=== PATIENT | female | born 1970 | race American Indian/Alaskan Native ===

== ENCOUNTER 2017-10-27 08:57 | Outpatient (CLI) | payer MEDICARE, MEDICAID ==
[~2017-10-27 08:57] MED LIST: AMLO2.5T2 PO; ASPI-1265 PO; CEPH250T PO; GABA-532 PO; INSU100V12 SQ; INSU100V36 SQ; MYCO250C46 PO; PANT-47 PO; POTA10CA44 PO; PRAV10TA39 PO; PRED5TAB PO; TACR1CAP28 PO
[2017-10-27 09:45] LABS: COLOR,URINE YELLOW (Yellow); GLUCOSE, URINE NEGATIVE (Neg); KETONES,URINE NEGATIVE (Neg); LEUKOCYTE ESTERASE ,URINE NEGATIVE (Neg); NITRITES, URINE NEGATIVE (Neg); OCCULT BLOOD,URINE NEGATIVE (Neg); PROTEIN,URINE NEGATIVE (Neg); UROBILINOGEN,URINE 0.2 E.U/dL (0.2-1.0)
[2017-10-27 09:48] LABS: BASOPHILS % (AUTO) 0.5 % (0-1); EOSINOPHILS # (AUTO) 0.4 X10'3 (0-0.9); EOSINOPHILS % (AUTO) 4.4 % (0-6); HEMATOCRIT 43.2 % (35.0-45.0); HEMOGLOBIN 14.3 g/dl (12.0-16.0); LYMPHOCYTES # (AUTO) 1.2 X10'3 (1.1-4.8); MEAN CORPUSCULAR HEMOGLOBIN 26.5 PG (27.0-31.0); MEAN CORPUSCULAR HGB CONC 33.2 % (33.0-36.5); MEAN CORPUSCULAR VOLUME 79.7 FL (78-98); MEAN PLATELET VOLUME 8.9 FL (7.4-10.4); MONOCYTES # (AUTO) 0.8 X10'3 (0-0.9); MONOCYTES % (AUTO) 8.9 % (2-12); NEUTROPHILS # (AUTO) 6.5 X10'3 (1.8-7.7); NEUTROPHILS % (AUTO) 73.2 % (42-75); PLATELET COUNT 245 X10'3 (140-440); RED BLOOD COUNT 5.42 X10'6 (4.20-5.60); RED CELL DISTRIBUTION WIDTH 14.7 % (11.5-14.5); WHITE BLOOD COUNT 8.9 X10'3 (4.5-11.0)
[2017-10-27 09:58] LABS: CLARITY,URINE Clear (Clear); UA COLLECTION TYPE CLN CATCH MIDSTREAM
[2017-10-27 09:59] LABS: ALANINE AMINOTRANSFERASE 35 U/L (12-78); ALBUMIN 3.9 G/DL (3.4-5.0); ALBUMIN/GLOBULIN RATIO 0.9 (1.1-1.5); ALKALINE PHOSPHATASE 116 IU/L (46-116); ANION GAP 8 (8-16); ASPARTATE AMINO TRANSFERASE 16 U/L (10-37); BILIRUBIN,TOTAL 0.5 MG/DL (0.1-1.0); BLOOD UREA NITROGEN 15 MG/DL (7-18); CALCIUM 9.7 MG/DL (8.5-10.1); CHLORIDE 101 MMOL/L (99-107); GLUCOSE 115 MG/DL (70-104); POTASSIUM 3.8 MMOL/L (3.5-5.1); SODIUM 137 MMOL/L (135-145); TOTAL CARBON DIOXIDE 28.5 MMOL/L (24-32); TOTAL PROTEIN 8.2 G/DL (6.4-8.2); eGFR 59 ML/MIN
== END 2017-10-27 23:59 | disposition home or self-care (01) ==
LOC: LAB 08:57
PROVIDERS: ATTEND Internal Medicine
DX: Z09 Encounter for follow-up examination after completed treatment for conditions other than malignant neoplasm (principal); T86.10 Unspecified complication of kidney transplant; E11.22 Type 2 diabetes mellitus with diabetic chronic kidney disease; I12.9 Hypertensive chronic kidney disease with stage 1 through stage 4 chronic kidney disease, or unspecified chronic kidney disease; N18.9 Chronic kidney disease, unspecified; R35.0 Frequency of micturition; B25.9 Cytomegaloviral disease, unspecified; B33.8 Other specified viral diseases
CPT/HCPCS: 36415; 80053; 80197; 81003; 85025

== ENCOUNTER 2017-11-24 15:54 | Emergency (ER) | payer MEDICARE, MEDICAID ==
[~2017-11-24] VITALS: Ht 162.6 cm; Wt 101.8 kg
[2017-11-24] MEDS ORDERED: dexamethasone sod phosphate 10mg/ml inj IM STA (16:04)
[2017-11-24] MEDS ORDERED: ketorolac trometh. 30mg/ml inj. IV ONE (16:05)
[2017-11-24] MEDS ORDERED: proCHLORperazine 10 MG/2 ml inj IV ONE (16:05)
[2017-11-24] MEDS ORDERED: LORazepam 2 mg/ml vial IV ONE (16:05)
[2017-11-24] MEDS ORDERED: normal saline 1000ML IV soln IVB ONE (16:05)
[2017-11-24 17:19] VITALS: BP 120/80
== END 2017-11-24 17:20 | disposition home or self-care (01) ==
LOC: ER 15:55
DX: G43.909 Migraine, unspecified, not intractable, without status migrainosus (principal); E78.00 Pure hypercholesterolemia, unspecified; K21.9 Gastro-esophageal reflux disease without esophagitis; I12.0 Hypertensive chronic kidney disease with stage 5 chronic kidney disease or end stage renal disease; E11.22 Type 2 diabetes mellitus with diabetic chronic kidney disease; N18.6 End stage renal disease; Z99.2 Dependence on renal dialysis; Z79.4 Long term (current) use of insulin; Z79.82 Long term (current) use of aspirin
CPT/HCPCS: 96361; 96372; 96374; 96375; 99284; J0780; J1100; J1885; J2060; J7030

== ENCOUNTER 2017-11-27 07:09 | Inpatient (IN) | payer MEDICARE, MEDICAID ==
[~2017-11-27] VITALS: Ht 162.6 cm; Wt 103.8 kg
[2017-11-27] MEDS ORDERED: HYDROcodone/acetaminophen 10/325mg tab PO ONE (08:15)
[2017-11-27 08:50] LABS: BASOPHILS % (AUTO) 0.1 % (0-1); EOSINOPHILS # (AUTO) 0.4 X10'3 (0-0.9); EOSINOPHILS % (AUTO) 2.8 % (0-6); HEMATOCRIT 41.8 % (35.0-45.0); HEMOGLOBIN 14.2 g/dl (12.0-16.0); LYMPHOCYTES # (AUTO) 1.1 X10'3 (1.1-4.8); LYMPHOCYTES % (AUTO) 8.5 % (21-51); MEAN CORPUSCULAR HEMOGLOBIN 27.1 PG (27.0-31.0); MEAN CORPUSCULAR HGB CONC 33.9 % (33.0-36.5); MEAN CORPUSCULAR VOLUME 80.1 FL (78-98); MEAN PLATELET VOLUME 8.2 FL (7.4-10.4); MONOCYTES # (AUTO) 0.7 X10'3 (0-0.9); MONOCYTES % (AUTO) 5.5 % (2-12); NEUTROPHILS # (AUTO) 10.6 X10'3 (1.8-7.7); NEUTROPHILS % (AUTO) 83.1 % (42-75); PLATELET COUNT 263 X10'3 (140-440); RED BLOOD COUNT 5.22 X10'6 (4.20-5.60); RED CELL DISTRIBUTION WIDTH 15.6 % (11.5-14.5); WHITE BLOOD COUNT 12.8 X10'3 (4.5-11.0)
[2017-11-27 08:57] LABS: INR 0.9 INR; PARTIAL THROMBOPLASTIN TIME 27 SECONDS (22-32); PROTHROMBIN TIME 9.6 SECONDS (9.0-12.0)
[2017-11-27 09:05] LABS: ALANINE AMINOTRANSFERASE 25 U/L (12-78); ALBUMIN 3.5 G/DL (3.4-5.0); ALBUMIN/GLOBULIN RATIO 0.7 (1.1-1.5); ALKALINE PHOSPHATASE 126 IU/L (46-116); ANION GAP 11 (8-16); ASPARTATE AMINO TRANSFERASE 12 U/L (10-37); BILIRUBIN,TOTAL 0.5 MG/DL (0.1-1.0); BLOOD UREA NITROGEN 20 MG/DL (7-18); BUN/CREATININE RATIO 16.8 (6.6-38.0); CALCIUM 9.2 MG/DL (8.5-10.1); CHLORIDE 102 MMOL/L (99-107); CREATININE 1.19 MG/DL (0.40-0.90); GLUCOSE 155 MG/DL (70-104); SODIUM 141 MMOL/L (135-145); TOTAL CARBON DIOXIDE 27.6 MMOL/L (24-32); TOTAL PROTEIN 8.3 G/DL (6.4-8.2); eGFR 48 ML/MIN
[2017-11-27 09:07] LABS: POTASSIUM 2.9 MMOL/L (3.5-5.1)
[2017-11-27] MEDS ORDERED: normal saline 1000ml 1,000 ML IV ONE (09:41)
[2017-11-27] MEDS ORDERED: HYDROmorphone inj. 0.5 MG/0.5 ML DISP.SYRIN IV ONE (09:45)
[2017-11-27] MEDS ORDERED: CefTRIAXone/D5W-Rocephin 1gm 50 ML IV ONE (09:45)
[2017-11-27] MEDS ORDERED: magnesium 2GM in 50ml NS 50 ML IV ONE (09:45)
[2017-11-27] MEDS ORDERED: potassium Cl 20 mEq SR tablet PO ONE (09:45)
[2017-11-27] MEDS ORDERED: magnesium oxide 400mg tablet PO ONE (09:45)
[2017-11-27] MEDS ORDERED: potassium 10mEq/100ml NS w/LIDOcaine (10mg/bag) IV ONE (09:45)
[2017-11-27] MEDS ORDERED: cefTRIAXone 1g/NS 100ml IVPB 100 ML IV ONE (10:05)
[2017-11-27] MEDS ORDERED: ondansetron/PF 4mg/2ml inj IV ONE (10:15)
[2017-11-27] MEDS ORDERED: vancomycin/NS 1 GM ADD-VANTAGE 250 ML IV ONE (12:45)
[2017-11-27] MEDS ORDERED: magnesium hydroxide 30ml (MOM) UD suspension PO PRN (13:05)
[2017-11-27] MEDS ORDERED: diphenhydrAMINE 25mg capsule PO PRN (13:05)
[2017-11-27] MEDS ORDERED: HYDROcodone/acetaminophen 5mg/325mg tablet PO PRN (13:05)
[2017-11-27] MEDS ORDERED: mag hydrox/Alum hydrox/simeth 30ml oral suspension PO PRN (13:05)
[2017-11-27] MEDS ORDERED: acetaminophen 325mg tablet PO PRN ×2 (13:05)
[2017-11-27] MEDS: normal saline 1000ml 1,000 ML IV SCH (13:30)
[2017-11-27] MEDS: pantoprazole 40mg Tablet.DR PO SCH (14:27)
[2017-11-27] MEDS: aspirin 81mg tab.chew PO SCH (14:27)
[2017-11-27] MEDS: predniSONE 5mg tablet PO SCH (14:27)
[2017-11-27 14:58] LABS: POTASSIUM 3.2 MMOL/L (3.5-5.1)
[2017-11-27 15:10] VITALS: BP 131/75
[2017-11-27] MEDS ORDERED: dextrose 50%-water 50ml dispensing syringe IV PRN ×2 (15:45)
[2017-11-27] MEDS ORDERED: glucagon, human recombinant 1mg kit SUBCUT PRN (15:45)
[2017-11-27] MEDS ORDERED: dextrose ORAL solution 15 GM/59 ML bottle PO PRN (15:45)
[2017-11-27] MEDS ORDERED: magnesium Cl slow-release 64mg tablet PO PRN (15:45)
[2017-11-27] MEDS ORDERED: insulin Lispro (HumaLOG) vial - multi-dose SQ SCH (15:45)
[2017-11-27] MEDS ORDERED: magnesium 2GM in 50ml NS 50 ML IV PRN (15:45)
[2017-11-27] MEDS ORDERED: potassium Cl 20 mEq SR tablet PO PRN ×2 (15:45)
[2017-11-27] MEDS ORDERED: potassium Cl 40MEQ/NS 500ml 500 ML IV PRN ×2 (15:45)
[2017-11-27] MEDS ORDERED: MESSAGE TO PHARMACY PO ONE (15:45)
[2017-11-27] MEDS ORDERED: magnesium 4gm in 100ml NS 100 ML IV PRN (15:45)
[2017-11-27] MEDS ORDERED: HYDROmorphone 1 mg/ml syringe IV PRN (15:45)
[2017-11-27] MEDS: HYDROmorphone inj. 0.5 MG/0.5 ML DISP.SYRIN IV PRN ×2 (16:11→21:11)
[2017-11-27 16:54] LABS: HEMOGLOBIN A1C 8.8 % (4.5-6.2)
[2017-11-27 18:00] VITALS: BP 114/69
[2017-11-27] MEDS: insulin Lispro (HumaLOG) vial - multi-dose SQ SCH (19:29)
[2017-11-27] MEDS ORDERED: insulin glargine (Lantus) pen - multi-dose SQ SCH (21:00)
[2017-11-27] MEDS ORDERED: pravastatin 10mg tablet PO SCH (21:00)
[2017-11-27] MEDS: gabapentin 300mg capsule PO SCH (21:06)
[2017-11-27] MEDS: amLODIPine 2.5mg tablet PO SCH (21:07)
[2017-11-27] MEDS: mycophenolate mofetil 250mg capsule PO SCH (21:07)
[2017-11-27] MEDS: tacrolimus anhydrous 1mg capsule PO SCH (21:07)
[2017-11-27] MEDS: docusate sod 100mg capsule PO SCH (21:08)
[2017-11-27] MEDS: heparin, porcine 5000 units/ml vial SQ SCH (21:13)
[2017-11-27 22:00] VITALS: BP 108/56
[2017-11-28] MEDS: normal saline 1000ml 1,000 ML IV SCH ×3 (01:46→19:02)
[2017-11-28 02:00] VITALS: BP 106/54
[2017-11-28] MEDS: HYDROmorphone inj. 0.5 MG/0.5 ML DISP.SYRIN IV PRN ×5 (02:48→20:47)
[2017-11-28 05:21] LABS: BASOPHILS % (AUTO) 0.2 % (0-1); EOSINOPHILS # (AUTO) 0.4 X10'3 (0-0.9); HEMATOCRIT 41.3 % (35.0-45.0); LYMPHOCYTES % (AUTO) 10.4 % (21-51); MEAN CORPUSCULAR HEMOGLOBIN 27.3 PG (27.0-31.0); MEAN CORPUSCULAR VOLUME 80.4 FL (78-98); MEAN PLATELET VOLUME 8.4 FL (7.4-10.4); MONOCYTES # (AUTO) 0.7 X10'3 (0-0.9); MONOCYTES % (AUTO) 7.1 % (2-12); NEUTROPHILS # (AUTO) 7.6 X10'3 (1.8-7.7); NEUTROPHILS % (AUTO) 78.3 % (42-75); PLATELET COUNT 265 X10'3 (140-440); RED BLOOD COUNT 5.14 X10'6 (4.20-5.60); RED CELL DISTRIBUTION WIDTH 15.6 % (11.5-14.5); WHITE BLOOD COUNT 9.6 X10'3 (4.5-11.0)
[2017-11-28 06:00] VITALS: BP 126/70
[2017-11-28 06:05] LABS: ALANINE AMINOTRANSFERASE 25 U/L (12-78); ALBUMIN/GLOBULIN RATIO 0.7 (1.1-1.5); ALKALINE PHOSPHATASE 100 IU/L (46-116); ANION GAP 8 (8-16); ASPARTATE AMINO TRANSFERASE 23 U/L (10-37); BILIRUBIN,TOTAL 0.5 MG/DL (0.1-1.0); BLOOD UREA NITROGEN 13 MG/DL (7-18); BUN/CREATININE RATIO 13.1 (6.6-38.0); CALCIUM 8.9 MG/DL (8.5-10.1); CHLORIDE 106 MMOL/L (99-107); CREATININE 0.99 MG/DL (0.40-0.90); GLUCOSE 79 MG/DL (70-104); MAGNESIUM 2.2 MG/DL (1.5-2.4); PHOSPHORUS 2.8 MG/DL (2.3-4.5); POTASSIUM 3.7 MMOL/L (3.5-5.1); SODIUM 142 MMOL/L (135-145); TOTAL PROTEIN 7.6 G/DL (6.4-8.2); eGFR 60 ML/MIN
[2017-11-28] MEDS: insulin Lispro (HumaLOG) vial - multi-dose SQ SCH ×3 (07:00→17:13)
[2017-11-28] MEDS: dextrose ORAL solution 15 GM/59 ML bottle PO PRN ×2 (07:16→08:06)
[2017-11-28] MEDS ORDERED: cefTRIAXone 1g/NS 100ml IVPB 100 ML IV SCH (08:00)
[2017-11-28] MEDS: tacrolimus anhydrous 1mg capsule PO SCH ×2 (08:13→20:45)
[2017-11-28] MEDS: potassium chloride 10mEq CAPSULE.SA PO SCH (08:13)
[2017-11-28] MEDS: docusate sod 100mg capsule PO SCH ×2 (08:14→20:39)
[2017-11-28] MEDS: mycophenolate mofetil 250mg capsule PO SCH ×2 (08:14→20:39)
[2017-11-28] MEDS: gabapentin 300mg capsule PO SCH ×2 (08:14→20:39)
[2017-11-28] MEDS: atorvastatin 10mg tablet PO SCH (08:14)
[2017-11-28] MEDS: pantoprazole 40mg Tablet.DR PO SCH (08:14)
[2017-11-28] MEDS: predniSONE 5mg tablet PO SCH (08:15)
[2017-11-28] MEDS: aspirin 81mg tab.chew PO SCH (08:15)
[2017-11-28] MEDS: heparin, porcine 5000 units/ml vial SQ SCH ×2 (08:16→20:40)
[2017-11-28] MEDS ORDERED: FLU VACC QS2017-18 36MOS UP/PF 60 MCG/0.5 ML SYRINGE IMVAC ONE (10:00)
[2017-11-28 11:00] VITALS: BP 113/52
[2017-11-28] MEDS: ondansetron/PF 4mg/2ml inj IV PRN (13:34)
[2017-11-28 16:47] VITALS: BP 104/54
[2017-11-28 18:00] VITALS: BP 106/52
[2017-11-28] MEDS: amLODIPine 2.5mg tablet PO SCH (20:39)
[2017-11-28 22:00] VITALS: BP 113/55
[2017-11-28] MEDS: temazepam 15mg capsule PO PRN (23:38)
[2017-11-29 02:12] VITALS: BP 138/73
[2017-11-29] MEDS ORDERED: VANCOMYCIN LEVEL IV ONE (02:30)
[2017-11-29] MEDS: HYDROmorphone inj. 0.5 MG/0.5 ML DISP.SYRIN IV PRN (02:58)
[2017-11-29 03:51] LABS: ALANINE AMINOTRANSFERASE 31 U/L (12-78); ALBUMIN 2.8 G/DL (3.4-5.0); ALBUMIN/GLOBULIN RATIO 0.7 (1.1-1.5); ALKALINE PHOSPHATASE 92 IU/L (46-116); ANION GAP 7 (8-16); ASPARTATE AMINO TRANSFERASE 20 U/L (10-37); BILIRUBIN,TOTAL 0.4 MG/DL (0.1-1.0); BLOOD UREA NITROGEN 11 MG/DL (7-18); BUN/CREATININE RATIO 12.2 (6.6-38.0); CALCIUM 8.7 MG/DL (8.5-10.1); CHLORIDE 105 MMOL/L (99-107); GLUCOSE 123 MG/DL (70-104); MAGNESIUM 1.9 MG/DL (1.5-2.4); PHOSPHORUS 2.4 MG/DL (2.3-4.5); POTASSIUM 3.9 MMOL/L (3.5-5.1); SODIUM 139 MMOL/L (135-145); VANCOMYCIN,TROUGH 18.5 UG/ML (6.0-14.0); eGFR 67 ML/MIN
[2017-11-29] MEDS: normal saline 1000ml 1,000 ML IV SCH ×2 (05:02→15:02)
[2017-11-29 06:00] VITALS: BP 126/64
[2017-11-29] MEDS: docusate sod 100mg capsule PO SCH ×2 (07:37→20:00)
[2017-11-29] MEDS: pantoprazole 40mg Tablet.DR PO SCH (07:37)
[2017-11-29] MEDS: mycophenolate mofetil 250mg capsule PO SCH ×2 (07:37→19:50)
[2017-11-29] MEDS: heparin, porcine 5000 units/ml vial SQ SCH ×2 (07:37→19:50)
[2017-11-29] MEDS: gabapentin 300mg capsule PO SCH ×2 (07:37→19:49)
[2017-11-29] MEDS: predniSONE 5mg tablet PO SCH (07:37)
[2017-11-29] MEDS: potassium chloride 10mEq CAPSULE.SA PO SCH (07:37)
[2017-11-29] MEDS: aspirin 81mg tab.chew PO SCH (07:37)
[2017-11-29] MEDS: atorvastatin 10mg tablet PO SCH (07:37)
[2017-11-29] MEDS: insulin Lispro (HumaLOG) vial - multi-dose SQ SCH ×4 (07:41→21:24)
[2017-11-29] MEDS: tacrolimus anhydrous 1mg capsule PO SCH ×2 (08:21→19:50)
[2017-11-29 08:38] LABS: BASOPHILS # (AUTO) 0.1 X10'3 (0-0.2); BASOPHILS % (AUTO) 0.9 % (0-1); EOSINOPHILS # (AUTO) 0.4 X10'3 (0-0.9); EOSINOPHILS % (AUTO) 4.9 % (0-6); HEMATOCRIT 37.8 % (35.0-45.0); HEMOGLOBIN 12.8 g/dl (12.0-16.0); LYMPHOCYTES % (AUTO) 10.5 % (21-51); MEAN CORPUSCULAR HEMOGLOBIN 27.4 PG (27.0-31.0); MEAN CORPUSCULAR HGB CONC 33.9 % (33.0-36.5); MEAN CORPUSCULAR VOLUME 80.8 FL (78-98); MEAN PLATELET VOLUME 8.9 FL (7.4-10.4); MONOCYTES # (AUTO) 0.8 X10'3 (0-0.9); MONOCYTES % (AUTO) 8.9 % (2-12); NEUTROPHILS # (AUTO) 6.9 X10'3 (1.8-7.7); NEUTROPHILS % (AUTO) 74.8 % (42-75); PLATELET COUNT 240 X10'3 (140-440); RED BLOOD COUNT 4.67 X10'6 (4.20-5.60); RED CELL DISTRIBUTION WIDTH 16.2 % (11.5-14.5); WHITE BLOOD COUNT 9.2 X10'3 (4.5-11.0)
[2017-11-29 11:00] VITALS: BP 129/63
[2017-11-29] MEDS ORDERED: levoFLOXACIN-Levaquin 750MG/D5 150 ML IV SCH (11:10)
[2017-11-29] MEDS: Cipro HC otic suspension 10ML bottle RIGHT EAR SCH (12:48)
[2017-11-29] MEDS: levoFLOXACIN 750MG TABLET PO SCH (12:48)
[2017-11-29 15:00] VITALS: BP 141/74
[2017-11-29] MEDS: HYDROcodone/acetaminophen 10/325mg tab PO PRN (15:59)
[2017-11-29] MEDS ORDERED: MESSAGE TO PHARMACY PO ONE (18:30)
[2017-11-29] MEDS ORDERED: glucagon, human recombinant 1mg kit SUBCUT PRN (18:30)
[2017-11-29 19:00] VITALS: BP 144/65
[2017-11-29] MEDS: HYDROmorphone 2mg tablet PO PRN (19:14)
[2017-11-29] MEDS: amLODIPine 2.5mg tablet PO SCH (21:17)
[2017-11-29] MEDS: insulin glargine (Lantus) pen - multi-dose SQ SCH (21:24)
[2017-11-29 22:00] VITALS: BP 132/75
[2017-11-30] MEDS: Cipro HC otic suspension 10ML bottle RIGHT EAR SCH ×3 (00:18→19:38)
[2017-11-30] MEDS: HYDROcodone/acetaminophen 10/325mg tab PO PRN ×4 (00:22→21:28)
[2017-11-30] MEDS: normal saline 1000ml 1,000 ML IV SCH (01:02)
[2017-11-30 02:00] VITALS: BP 136/74
[2017-11-30 06:26] LABS: BASOPHILS % (AUTO) 0.3 % (0-1); EOSINOPHILS # (AUTO) 0.3 X10'3 (0-0.9); EOSINOPHILS % (AUTO) 4.5 % (0-6); HEMATOCRIT 38.6 % (35.0-45.0); HEMOGLOBIN 13.2 g/dl (12.0-16.0); LYMPHOCYTES # (AUTO) 1.1 X10'3 (1.1-4.8); LYMPHOCYTES % (AUTO) 14.5 % (21-51); MEAN CORPUSCULAR HEMOGLOBIN 27.7 PG (27.0-31.0); MEAN CORPUSCULAR HGB CONC 34.2 % (33.0-36.5); MEAN PLATELET VOLUME 8.5 FL (7.4-10.4); MONOCYTES # (AUTO) 0.8 X10'3 (0-0.9); NEUTROPHILS # (AUTO) 5.5 X10'3 (1.8-7.7); NEUTROPHILS % (AUTO) 70.7 % (42-75); PLATELET COUNT 263 X10'3 (140-440); RED BLOOD COUNT 4.77 X10'6 (4.20-5.60); RED CELL DISTRIBUTION WIDTH 15.4 % (11.5-14.5); WHITE BLOOD COUNT 7.7 X10'3 (4.5-11.0)
[2017-11-30 06:46] LABS: ALANINE AMINOTRANSFERASE 31 U/L (12-78); ALBUMIN 2.8 G/DL (3.4-5.0); ALBUMIN/GLOBULIN RATIO 0.6 (1.1-1.5); ALKALINE PHOSPHATASE 93 IU/L (46-116); ANION GAP 8 (8-16); ASPARTATE AMINO TRANSFERASE 14 U/L (10-37); BILIRUBIN,TOTAL 0.6 MG/DL (0.1-1.0); BLOOD UREA NITROGEN 16 MG/DL (7-18); BUN/CREATININE RATIO 15.2 (6.6-38.0); CALCIUM 9.4 MG/DL (8.5-10.1); CHLORIDE 101 MMOL/L (99-107); CREATININE 1.05 MG/DL (0.40-0.90); GLUCOSE 244 MG/DL (70-104); MAGNESIUM 1.6 MG/DL (1.5-2.4); PHOSPHORUS 2.8 MG/DL (2.3-4.5); SODIUM 137 MMOL/L (135-145); TOTAL CARBON DIOXIDE 27.9 MMOL/L (24-32); TOTAL PROTEIN 7.2 G/DL (6.4-8.2); eGFR 56 ML/MIN
[2017-11-30 07:00] VITALS: BP 121/65
[2017-11-30] MEDS: atorvastatin 10mg tablet PO SCH (08:36)
[2017-11-30] MEDS: potassium chloride 10mEq ER tablet PO SCH (08:36)
[2017-11-30] MEDS: aspirin 81mg tab.chew PO SCH (08:36)
[2017-11-30] MEDS: docusate sod 100mg capsule PO SCH ×2 (08:36→19:37)
[2017-11-30] MEDS: gabapentin 300mg capsule PO SCH ×2 (08:37→19:36)
[2017-11-30] MEDS: tacrolimus anhydrous 1mg capsule PO SCH ×2 (08:37→19:37)
[2017-11-30] MEDS: mycophenolate mofetil 250mg capsule PO SCH ×2 (08:37→19:37)
[2017-11-30] MEDS: pantoprazole 40mg Tablet.DR PO SCH (08:37)
[2017-11-30] MEDS: predniSONE 5mg tablet PO SCH (08:37)
[2017-11-30] MEDS: heparin, porcine 5000 units/ml vial SQ SCH ×2 (08:38→19:53)
[2017-11-30] MEDS: insulin Lispro (HumaLOG) vial - multi-dose SQ SCH ×4 (08:44→22:36)
[2017-11-30 11:06] VITALS: BP 112/53
[2017-11-30] MEDS: levoFLOXACIN 750MG TABLET PO SCH (13:02)
[2017-11-30] MEDS: lactobacillus rhamnosus 10,000 MMU CELLS/CAPSULE PO SCH (17:17)
[2017-11-30 19:51] VITALS: BP_SYST 117; BP_SYST 118; BP_DIAS 67; BP_DIAS 72
[2017-11-30] MEDS: amLODIPine 2.5mg tablet PO SCH (21:28)
[2017-11-30] MEDS: insulin glargine (Lantus) pen - multi-dose SQ SCH (22:32)
[2017-11-30 23:30] VITALS: BP 118/72
[2017-12-01 06:06] LABS: BASOPHILS % (AUTO) 0.3 % (0-1); EOSINOPHILS # (AUTO) 0.4 X10'3 (0-0.9); EOSINOPHILS % (AUTO) 5.5 % (0-6); HEMATOCRIT 41.6 % (35.0-45.0); HEMOGLOBIN 14.1 g/dl (12.0-16.0); MEAN CORPUSCULAR HEMOGLOBIN 27.3 PG (27.0-31.0); MEAN CORPUSCULAR HGB CONC 33.9 % (33.0-36.5); MEAN CORPUSCULAR VOLUME 80.5 FL (78-98); MEAN PLATELET VOLUME 8.1 FL (7.4-10.4); MONOCYTES # (AUTO) 0.7 X10'3 (0-0.9); MONOCYTES % (AUTO) 8.9 % (2-12); NEUTROPHILS # (AUTO) 5.9 X10'3 (1.8-7.7); NEUTROPHILS % (AUTO) 73.3 % (42-75); PLATELET COUNT 300 X10'3 (140-440); RED BLOOD COUNT 5.17 X10'6 (4.20-5.60); RED CELL DISTRIBUTION WIDTH 16.2 % (11.5-14.5); WHITE BLOOD COUNT 8.1 X10'3 (4.5-11.0)
[2017-12-01 06:35] LABS: ALANINE AMINOTRANSFERASE 36 U/L (12-78); ALBUMIN 3.1 G/DL (3.4-5.0); ALBUMIN/GLOBULIN RATIO 0.7 (1.1-1.5); ALKALINE PHOSPHATASE 111 IU/L (46-116); ANION GAP 11 (8-16); ASPARTATE AMINO TRANSFERASE 20 U/L (10-37); BILIRUBIN,TOTAL 0.5 MG/DL (0.1-1.0); BLOOD UREA NITROGEN 19 MG/DL (7-18); CALCIUM 9.8 MG/DL (8.5-10.1); CHLORIDE 99 MMOL/L (99-107); CREATININE 1.12 MG/DL (0.40-0.90); GLUCOSE 258 MG/DL (70-104); MAGNESIUM 1.7 MG/DL (1.5-2.4); PHOSPHORUS 3.3 MG/DL (2.3-4.5); POTASSIUM 4.2 MMOL/L (3.5-5.1); SODIUM 136 MMOL/L (135-145); TOTAL CARBON DIOXIDE 26.4 MMOL/L (24-32); TOTAL PROTEIN 7.8 G/DL (6.4-8.2); eGFR 52 ML/MIN
[2017-12-01 07:00] VITALS: BP 136/81
[2017-12-01] MEDS: HYDROmorphone 2mg tablet PO PRN ×2 (07:49→19:09)
[2017-12-01] MEDS: docusate sod 100mg capsule PO SCH ×2 (09:08→19:23)
[2017-12-01] MEDS: atorvastatin 10mg tablet PO SCH (09:08)
[2017-12-01] MEDS: gabapentin 300mg capsule PO SCH ×2 (09:08→19:23)
[2017-12-01] MEDS: Cipro HC otic suspension 10ML bottle RIGHT EAR SCH ×2 (09:09→20:17)
[2017-12-01] MEDS: predniSONE 5mg tablet PO SCH (09:09)
[2017-12-01] MEDS: tacrolimus anhydrous 1mg capsule PO SCH ×2 (09:09→19:23)
[2017-12-01] MEDS: lactobacillus rhamnosus 10,000 MMU CELLS/CAPSULE PO SCH ×2 (09:09→17:12)
[2017-12-01] MEDS: aspirin 81mg tab.chew PO SCH (09:09)
[2017-12-01] MEDS: pantoprazole 40mg Tablet.DR PO SCH (09:09)
[2017-12-01] MEDS: potassium chloride 10mEq ER tablet PO SCH (09:09)
[2017-12-01] MEDS: mycophenolate mofetil 250mg capsule PO SCH ×2 (09:09→19:23)
[2017-12-01] MEDS: heparin, porcine 5000 units/ml vial SQ SCH ×2 (09:10→19:23)
[2017-12-01] MEDS: insulin Lispro (HumaLOG) vial - multi-dose SQ SCH ×3 (09:22→19:15)
[2017-12-01 10:22] VITALS: BP 136/81
[2017-12-01] MEDS: cefepime 2g/NS 100ml ADVANTAGE 100 ML IV SCH ×2 (11:40→19:23)
[2017-12-01] MEDS: HYDROmorphone inj. 0.5 MG/0.5 ML DISP.SYRIN IV PRN (11:56)
[2017-12-01 12:00] VITALS: BP 125/71
[2017-12-01] MEDS: ondansetron/PF 4mg/2ml inj IV PRN (13:36)
[2017-12-01 19:00] VITALS: BP 139/78
[2017-12-01] MEDS ORDERED: HYDROmorphone 2mg tablet PO PRN (20:20)
[2017-12-01] MEDS: insulin glargine (Lantus) pen - multi-dose SQ SCH (22:13)
[2017-12-01] MEDS: amLODIPine 2.5mg tablet PO SCH (22:14)
[2017-12-01] MEDS: temazepam 15mg capsule PO PRN (22:14)
[2017-12-02 00:08] VITALS: BP 126/58
[2017-12-02] MEDS: HYDROmorphone 2mg tablet PO PRN ×4 (01:14→23:57)
[2017-12-02 06:16] LABS: BASOPHILS # (AUTO) 0.1 X10'3 (0-0.2); BASOPHILS % (AUTO) 0.5 % (0-1); EOSINOPHILS # (AUTO) 0.4 X10'3 (0-0.9); EOSINOPHILS % (AUTO) 4.7 % (0-6); HEMATOCRIT 40.6 % (35.0-45.0); HEMOGLOBIN 13.9 g/dl (12.0-16.0); LYMPHOCYTES % (AUTO) 10.6 % (21-51); MEAN CORPUSCULAR HEMOGLOBIN 27.4 PG (27.0-31.0); MEAN CORPUSCULAR HGB CONC 34.1 % (33.0-36.5); MEAN CORPUSCULAR VOLUME 80.4 FL (78-98); MEAN PLATELET VOLUME 8.4 FL (7.4-10.4); MONOCYTES # (AUTO) 0.8 X10'3 (0-0.9); MONOCYTES % (AUTO) 7.9 % (2-12); NEUTROPHILS # (AUTO) 7.4 X10'3 (1.8-7.7); NEUTROPHILS % (AUTO) 76.3 % (42-75); PLATELET COUNT 291 X10'3 (140-440); RED BLOOD COUNT 5.06 X10'6 (4.20-5.60); RED CELL DISTRIBUTION WIDTH 15.2 % (11.5-14.5); WHITE BLOOD COUNT 9.6 X10'3 (4.5-11.0)
[2017-12-02 06:30] VITALS: BP 126/73
[2017-12-02 07:10] LABS: ALANINE AMINOTRANSFERASE 40 U/L (12-78); ALBUMIN 3.2 G/DL (3.4-5.0); ALBUMIN/GLOBULIN RATIO 0.7 (1.1-1.5); ALKALINE PHOSPHATASE 95 IU/L (46-116); ANION GAP 9 (8-16); ASPARTATE AMINO TRANSFERASE 19 U/L (10-37); BILIRUBIN,TOTAL 0.6 MG/DL (0.1-1.0); BLOOD UREA NITROGEN 19 MG/DL (7-18); BUN/CREATININE RATIO 17.4 (6.6-38.0); CALCIUM 9.6 MG/DL (8.5-10.1); CHLORIDE 100 MMOL/L (99-107); CREATININE 1.09 MG/DL (0.40-0.90); GLUCOSE 222 MG/DL (70-104); MAGNESIUM 1.7 MG/DL (1.5-2.4); PHOSPHORUS 3.4 MG/DL (2.3-4.5); POTASSIUM 4.3 MMOL/L (3.5-5.1); SODIUM 136 MMOL/L (135-145); TOTAL CARBON DIOXIDE 26.9 MMOL/L (24-32); TOTAL PROTEIN 7.8 G/DL (6.4-8.2); eGFR 54 ML/MIN
[2017-12-02] MEDS: gabapentin 300mg capsule PO SCH ×2 (08:42→20:00)
[2017-12-02] MEDS: atorvastatin 10mg tablet PO SCH (08:42)
[2017-12-02] MEDS: potassium chloride 10mEq ER tablet PO SCH (08:43)
[2017-12-02] MEDS: predniSONE 5mg tablet PO SCH (08:43)
[2017-12-02] MEDS: mycophenolate mofetil 250mg capsule PO SCH ×2 (08:43→20:01)
[2017-12-02] MEDS: tacrolimus anhydrous 1mg capsule PO SCH ×2 (08:44→20:02)
[2017-12-02] MEDS: aspirin 81mg tab.chew PO SCH (08:44)
[2017-12-02] MEDS: lactobacillus rhamnosus 10,000 MMU CELLS/CAPSULE PO SCH ×2 (08:44→17:22)
[2017-12-02] MEDS: docusate sod 100mg capsule PO SCH ×2 (08:45→20:00)
[2017-12-02] MEDS: pantoprazole 40mg Tablet.DR PO SCH (08:45)
[2017-12-02] MEDS: heparin, porcine 5000 units/ml vial SQ SCH ×2 (08:46→20:01)
[2017-12-02] MEDS: insulin Lispro (HumaLOG) vial - multi-dose SQ SCH ×3 (08:48→18:45)
[2017-12-02] MEDS: Cipro HC otic suspension 10ML bottle RIGHT EAR SCH ×2 (08:50→20:02)
[2017-12-02] MEDS: cefepime 2g/NS 100ml ADVANTAGE 100 ML IV SCH ×2 (10:44→20:02)
[2017-12-02 11:00] VITALS: BP 114/50
[2017-12-02 18:22] VITALS: BP 143/78
[2017-12-02] MEDS: amLODIPine 2.5mg tablet PO SCH (21:00)
[2017-12-02] MEDS: insulin glargine (Lantus) pen - multi-dose SQ SCH (21:35)
[2017-12-03] VITALS: BP 146/78
[2017-12-03] MEDS: HYDROmorphone 2mg tablet PO PRN ×2 (05:50→06:08)
[2017-12-03 07:00] VITALS: BP 136/81
[2017-12-03] MEDS: aspirin 81mg tab.chew PO SCH (07:47)
[2017-12-03] MEDS: pantoprazole 40mg Tablet.DR PO SCH (07:47)
[2017-12-03] MEDS: atorvastatin 10mg tablet PO SCH (07:47)
[2017-12-03] MEDS: potassium chloride 10mEq ER tablet PO SCH (07:47)
[2017-12-03] MEDS: docusate sod 100mg capsule PO SCH (07:47)
[2017-12-03] MEDS: lactobacillus rhamnosus 10,000 MMU CELLS/CAPSULE PO SCH (07:47)
[2017-12-03] MEDS: predniSONE 5mg tablet PO SCH (07:47)
[2017-12-03] MEDS: heparin, porcine 5000 units/ml vial SQ SCH (07:47)
[2017-12-03] MEDS: mycophenolate mofetil 250mg capsule PO SCH (07:47)
[2017-12-03] MEDS: tacrolimus anhydrous 1mg capsule PO SCH (07:47)
[2017-12-03] MEDS: gabapentin 300mg capsule PO SCH (07:47)
[2017-12-03] MEDS: Cipro HC otic suspension 10ML bottle RIGHT EAR SCH (07:48)
[2017-12-03] MEDS: cefepime 2g/NS 100ml ADVANTAGE 100 ML IV SCH (07:48)
[2017-12-03] MEDS: insulin Lispro (HumaLOG) vial - multi-dose SQ SCH ×2 (09:53→13:44)
[2017-12-03 11:00] VITALS: BP 129/77
[2017-12-03] MEDS ORDERED: lactobacillus rhamnosus 10,000 MMU CELLS/CAPSULE PO SCH (15:15)
== END 2017-12-03 16:44 | disposition home health service (06) | DRG 641 ==
LOC: ER 07:10 → ED HOLD 13:02 → PCU 3S 15:05 → MED 3N 11-30 01:00
PROVIDERS: ATTEND Internal Medicine Critical Care Medicine
PROC: 02HV33Z Insertion of Infusion Device into Superior Vena Cava, Percutaneous Approach (ICD-10-PCS; principal; 2017-12-01)
PROC: B548ZZA Ultrasonography of Superior Vena Cava, Guidance (ICD-10-PCS; 2017-12-01)
DX: E87.6 Hypokalemia (principal); H70.003 Acute mastoiditis without complications, bilateral; Z94.0 Kidney transplant status; J32.9 Chronic sinusitis, unspecified; E78.00 Pure hypercholesterolemia, unspecified; E11.9 Type 2 diabetes mellitus without complications; E78.5 Hyperlipidemia, unspecified; H66.93 Otitis media, unspecified, bilateral; K21.9 Gastro-esophageal reflux disease without esophagitis; G43.909 Migraine, unspecified, not intractable, without status migrainosus; I10 Essential (primary) hypertension; Z79.4 Long term (current) use of insulin; Z79.82 Long term (current) use of aspirin; Z90.49 Acquired absence of other specified parts of digestive tract; Z90.710 Acquired absence of both cervix and uterus; Z82.49 Family history of ischemic heart disease and other diseases of the circulatory system; Z83.3 Family history of diabetes mellitus
CPT/HCPCS: 36415; 36569; 70480; 70486; 76937; 80053; 80202; 82948; 83036; 83605; 83735; 84100; 84132; 85025; 85610; 85730; 86140; 87040; 87070; 96365; 96367; 96375; 99291; J0692; J0696; J1170; J1644; J1815; J2405; J3370; J3475; J3480; J7030; J7507; J7512; J7517; Q2037

== ENCOUNTER 2018-02-21 08:15 | Outpatient (CLI) | payer MEDICARE, MEDICAID ==
[~2018-02-21 08:15] MED LIST changes: -CEPH250T PO
[2018-02-21 09:15] LABS: BASOPHILS % (AUTO) 0.5 % (0-1); EOSINOPHILS # (AUTO) 0.2 X10'3 (0-0.9); EOSINOPHILS % (AUTO) 2.8 % (0-6); HEMATOCRIT 41.6 % (35.0-45.0); HEMOGLOBIN 14.1 g/dl (12.0-16.0); LYMPHOCYTES # (AUTO) 0.8 X10'3 (1.1-4.8); LYMPHOCYTES % (AUTO) 9.9 % (21-51); MEAN CORPUSCULAR HEMOGLOBIN 27.1 PG (27.0-31.0); MEAN CORPUSCULAR HGB CONC 33.9 % (33.0-36.5); MEAN CORPUSCULAR VOLUME 79.8 FL (78-98); MEAN PLATELET VOLUME 9.6 FL (7.4-10.4); MONOCYTES # (AUTO) 0.6 X10'3 (0-0.9); MONOCYTES % (AUTO) 7.3 % (2-12); NEUTROPHILS # (AUTO) 6.7 X10'3 (1.8-7.7); NEUTROPHILS % (AUTO) 79.5 % (42-75); PLATELET COUNT 235 X10'3 (140-440); RED BLOOD COUNT 5.21 X10'6 (4.20-5.60); RED CELL DISTRIBUTION WIDTH 14.4 % (11.5-14.5); WHITE BLOOD COUNT 8.5 X10'3 (4.5-11.0)
[2018-02-21 09:31] LABS: ALANINE AMINOTRANSFERASE 36 U/L (12-78); ALBUMIN 3.5 G/DL (3.4-5.0); ALBUMIN/GLOBULIN RATIO 0.8 (1.1-1.5); ALKALINE PHOSPHATASE 133 IU/L (46-116); ANION GAP 12 (8-16); ASPARTATE AMINO TRANSFERASE 18 U/L (10-37); BILIRUBIN,TOTAL 0.4 MG/DL (0.1-1.0); BLOOD UREA NITROGEN 15 MG/DL (7-18); BUN/CREATININE RATIO 13.4 (6.6-38.0); CALCIUM 9.6 MG/DL (8.5-10.1); CHLORIDE 103 MMOL/L (99-107); CREATININE 1.12 MG/DL (0.40-0.90); GLUCOSE 279 MG/DL (70-104); POTASSIUM 4.1 MMOL/L (3.5-5.1); SODIUM 138 MMOL/L (135-145); TOTAL CARBON DIOXIDE 22.6 MMOL/L (24-32); TOTAL PROTEIN 7.9 G/DL (6.4-8.2); eGFR 52 ML/MIN
[2018-02-21 10:12] LABS: CLARITY,URINE CLOUDY (Clear); COLOR,URINE YELLOW (Yellow); GLUCOSE, URINE 100 mg/dl (Neg); KETONES,URINE NEGATIVE (Neg); LEUKOCYTE ESTERASE ,URINE SMALL (Neg); NITRITES, URINE POSITIVE (Neg); OCCULT BLOOD,URINE SMALL (Neg); PH,URINE 5.5 (4.8-8.0); PROTEIN,URINE TRACE mg/dl (Neg); UROBILINOGEN,URINE 0.2 E.U/dL (0.2-1.0)
[2018-02-21 10:20] LABS: UA COLLECTION TYPE CLN CATCH MIDSTREAM
[2018-02-21 10:27] LABS: WBC,URINE 50-100 /HPF (0-4)
[2018-02-21 10:28] LABS: BACTERIA,URINE 4+ /HPF (Neg); HYALINE CASTS 0-3 /LPF (NEGATIVE); MUCUS STRANDS FEW /LPF (Neg); RBC,URINE 0-2 /HPF (0-2); SQUAMOUS EPITHELIAL CELL,UR FEW /LPF (FEW); WBC CLUMPS,URINE MODERATE /HPF (NEGATIVE)
== END 2018-02-21 23:59 | disposition home or self-care (01) ==
LOC: LAB 08:15
PROVIDERS: ATTEND Internal Medicine
DX: Z09 Encounter for follow-up examination after completed treatment for conditions other than malignant neoplasm (principal); R35.0 Frequency of micturition; T86.10 Unspecified complication of kidney transplant; B25.9 Cytomegaloviral disease, unspecified; B33.8 Other specified viral diseases; I10 Essential (primary) hypertension; E11.9 Type 2 diabetes mellitus without complications
CPT/HCPCS: 36415; 80053; 80197; 81001; 85025; 87077; 87088; 87186

== ENCOUNTER 2018-03-03 02:31 | Emergency (ER) | payer MEDICARE, MEDICAID ==
[~2018-03-03] VITALS: Ht 160 cm; Wt 103.0 kg
[2018-03-03 02:36] VITALS: BP 138/72
[2018-03-03] MEDS ORDERED: METO-395 PO (02:46)
[2018-03-03] MEDS ORDERED: CYCL-1 PO (03:01)
== END 2018-03-03 03:14 | disposition home or self-care (01) ==
LOC: ER 02:31
DX: S46.912A Strain of unspecified muscle, fascia and tendon at shoulder and upper arm level, left arm, initial encounter (principal); E11.9 Type 2 diabetes mellitus without complications; E78.00 Pure hypercholesterolemia, unspecified; I21.9 Acute myocardial infarction, unspecified; K21.9 Gastro-esophageal reflux disease without esophagitis; Z79.82 Long term (current) use of aspirin; Z79.4 Long term (current) use of insulin; V89.2XXA Person injured in unspecified motor-vehicle accident, traffic, initial encounter; Y93.89 Activity, other specified; Y92.89 Other specified places as the place of occurrence of the external cause; Y99.8 Other external cause status
CPT/HCPCS: 99283

== ENCOUNTER 2018-05-12 09:05 | Outpatient (CLI) | payer MEDICARE, MEDICAID ==
[~2018-05-12 09:05] MED LIST changes: +CYCL-1 PO; -INSU100V12 SQ; +METO-395 PO
[2018-05-12 09:53] LABS: BASOPHILS % (AUTO) 0.5 % (0-1); EOSINOPHILS # (AUTO) 0.4 X10'3 (0-0.9); EOSINOPHILS % (AUTO) 4.8 % (0-6); HEMATOCRIT 41.1 % (35.0-45.0); HEMOGLOBIN 13.8 g/dl (12.0-16.0); LYMPHOCYTES # (AUTO) 0.9 X10'3 (1.1-4.8); LYMPHOCYTES % (AUTO) 12.9 % (21-51); MEAN CORPUSCULAR HEMOGLOBIN 27.3 PG (27.0-31.0); MEAN CORPUSCULAR HGB CONC 33.7 % (33.0-36.5); MEAN PLATELET VOLUME 9.1 FL (7.4-10.4); MONOCYTES # (AUTO) 0.7 X10'3 (0-0.9); MONOCYTES % (AUTO) 9.2 % (2-12); NEUTROPHILS # (AUTO) 5.4 X10'3 (1.8-7.7); NEUTROPHILS % (AUTO) 72.6 % (42-75); PLATELET COUNT 222 X10'3 (140-440); RED BLOOD COUNT 5.07 X10'6 (4.20-5.60); RED CELL DISTRIBUTION WIDTH 15.1 % (11.5-14.5); WHITE BLOOD COUNT 7.4 X10'3 (4.5-11.0)
[2018-05-12 10:14] LABS: CLARITY,URINE Clear (Clear); COLOR,URINE Yellow (Yellow); GLUCOSE, URINE Negative (Neg); KETONES,URINE Negative (Neg); LEUKOCYTE ESTERASE ,URINE Negative (Neg); NITRITES, URINE Negative (Neg); OCCULT BLOOD,URINE Negative (Neg); PH,URINE 5.5 (4.8-8.0); PROTEIN,URINE 30 mg/dl (Neg); UROBILINOGEN,URINE 0.2 E.U/dL (0.2-1.0)
[2018-05-12 10:17] LABS: UA COLLECTION TYPE CLN CATCH MIDSTREAM
[2018-05-12 10:22] LABS: ALANINE AMINOTRANSFERASE 49 U/L (12-78); ALBUMIN 3.5 G/DL (3.4-5.0); ALBUMIN/GLOBULIN RATIO 0.7 (1.1-1.5); ALKALINE PHOSPHATASE 107 IU/L (46-116); ANION GAP 13 (8-16); ASPARTATE AMINO TRANSFERASE 29 U/L (10-37); BILIRUBIN,TOTAL 0.6 MG/DL (0.1-1.0); BLOOD UREA NITROGEN 21 MG/DL (7-18); BUN/CREATININE RATIO 16.7 (6.6-38.0); CALCIUM 9.1 MG/DL (8.5-10.1); CHLORIDE 101 MMOL/L (99-107); CHOL/HDL RATIO 6.8 (0.00-4.99); CHOLESTEROL 272 MG/DL (0-200); CREATININE 1.26 MG/DL (0.40-0.90); GLUCOSE 139 MG/DL (70-104); HDL CHOLESTEROL 40 MG/DL (35-60); LDL CHOLESTEROL 107 MG/DL (50-100); POTASSIUM 3.6 MMOL/L (3.5-5.1); SODIUM 135 MMOL/L (135-145); TOTAL CARBON DIOXIDE 20.6 MMOL/L (24-32); TOTAL PROTEIN 8.2 G/DL (6.4-8.2); TRIGLYCERIDES 933 MG/DL (20-135); eGFR 45 ML/MIN
[2018-05-12 10:47] LABS: MUCUS STRANDS FEW /LPF (Neg); SQUAMOUS EPITHELIAL CELL,UR MODERATE /LPF (FEW)
[2018-05-12 10:49] LABS: BACTERIA,URINE NONE SEEN /HPF (Neg); RBC,URINE NONE SEEN /HPF (0-2); WBC,URINE 0-4 /HPF (0-4)
[2018-05-13 09:15] LABS: VITAMIN D, 25-HYDROXY 9.6 ng/mL (30.0-100.0)
[2018-05-13 11:20] LABS: MICROALB/CRT, RATIO 55.4 mg/g creat (0.0-30.0)
== END 2018-05-12 23:59 | disposition home or self-care (01) ==
LOC: LAB 09:05
PROVIDERS: ATTEND Nurse Practitioner
DX: Z13.21 Encounter for screening for nutritional disorder (principal); Z13.0 Encounter for screening for diseases of the blood and blood-forming organs and certain disorders involving the immune mechanism; Z13.228 Encounter for screening for other metabolic disorders; Z09 Encounter for follow-up examination after completed treatment for conditions other than malignant neoplasm; I10 Essential (primary) hypertension; D50.9 Iron deficiency anemia, unspecified; E78.9 Disorder of lipoprotein metabolism, unspecified; E11.9 Type 2 diabetes mellitus without complications; R35.0 Frequency of micturition; T86.10 Unspecified complication of kidney transplant; B25.9 Cytomegaloviral disease, unspecified; B33.8 Other specified viral diseases; K21.9 Gastro-esophageal reflux disease without esophagitis; Z79.52 Long term (current) use of systemic steroids; Z79.899 Other long term (current) drug therapy
CPT/HCPCS: 36415; 80053; 80061; 80197; 81001; 82043; 82306; 82570; 83036; 84439; 84443; 85025

== ENCOUNTER 2018-08-16 13:04 | Emergency (ER) | payer MEDICARE, MEDICAID ==
[~2018-08-16] VITALS: Ht 162.6 cm; Wt 100.0 kg
[2018-08-16 13:34] LABS: BASOPHILS # (AUTO) 0.1 X10'3 (0-0.2); BASOPHILS % (AUTO) 0.5 % (0-1); EOSINOPHILS # (AUTO) 0.1 X10'3 (0-0.9); EOSINOPHILS % (AUTO) 0.4 % (0-6); HEMATOCRIT 38.7 % (35.0-45.0); LYMPHOCYTES # (AUTO) 0.6 X10'3 (1.1-4.8); LYMPHOCYTES % (AUTO) 4.2 % (21-51); MEAN CORPUSCULAR HEMOGLOBIN 27.5 PG (27.0-31.0); MEAN CORPUSCULAR HGB CONC 33.5 % (33.0-36.5); MEAN PLATELET VOLUME 9.2 FL (7.4-10.4); MONOCYTES % (AUTO) 6.6 % (2-12); NEUTROPHILS # (AUTO) 12.7 X10'3 (1.8-7.7); NEUTROPHILS % (AUTO) 88.3 % (42-75); PLATELET COUNT 197 X10'3 (140-440); RED BLOOD COUNT 4.72 X10'6 (4.20-5.60); WHITE BLOOD COUNT 14.4 X10'3 (4.5-11.0)
[2018-08-16] MEDS ORDERED: acetaminophen 325mg tablet PO ONE (13:35)
[2018-08-16 13:51] LABS: ALANINE AMINOTRANSFERASE 29 U/L (12-78); ALBUMIN 3.2 G/DL (3.4-5.0); ALBUMIN/GLOBULIN RATIO 0.6 (1.1-1.5); ALKALINE PHOSPHATASE 118 IU/L (46-116); ANION GAP 9 (8-16); ASPARTATE AMINO TRANSFERASE 19 U/L (10-37); BILIRUBIN,TOTAL 0.8 MG/DL (0.1-1.0); BLOOD UREA NITROGEN 18 MG/DL (7-18); BUN/CREATININE RATIO 11.3 (6.6-38.0); CALCIUM 9.1 MG/DL (8.5-10.1); CHLORIDE 97 MMOL/L (99-107); GLUCOSE 311 MG/DL (70-104); POTASSIUM 3.6 MMOL/L (3.5-5.1); SODIUM 130 MMOL/L (135-145); TOTAL CARBON DIOXIDE 24.2 MMOL/L (24-32); TOTAL PROTEIN 8.3 G/DL (6.4-8.2); eGFR 34 ML/MIN
[2018-08-16 13:52] LABS: PROTHROMBIN TIME 9.9 SECONDS (9.0-12.0)
[2018-08-16] MEDS ORDERED: morphine 4 MG/ML inj SYRINge IV ONE (15:05)
[2018-08-16 15:36] LABS: URINE HCG NEGATIVE (NEG)
[2018-08-16 15:37] LABS: TOTAL CELLS COUNTED 100
[2018-08-16 15:38] LABS: PLATELET ESTIMATE NORMAL
[2018-08-16 16:00] LABS: CLARITY,URINE SLIGHTLY CLOUDY (Clear); COLOR,URINE YELLOW (Yellow); GLUCOSE, URINE >=1000 mg/dl (Neg); KETONES,URINE NEGATIVE (Neg); LEUKOCYTE ESTERASE ,URINE SMALL (Neg); NITRITES, URINE NEGATIVE (Neg); OCCULT BLOOD,URINE MODERATE (Neg); PH,URINE 5.5 (4.8-8.0); PROTEIN,URINE 30 mg/dl (Neg); UROBILINOGEN,URINE 0.2 E.U/dL (0.2-1.0)
[2018-08-16 16:02] LABS: UA COLLECTION TYPE CLN CATCH MIDSTREAM
[2018-08-16] MEDS ORDERED: BACDS PO (16:05)
[2018-08-16 16:15] LABS: BACTERIA,URINE 4+ /HPF (Neg); SQUAMOUS EPITHELIAL CELL,UR FEW /LPF (FEW); WBC CLUMPS,URINE FEW /HPF (NEGATIVE); WBC,URINE 50-100 /HPF (0-4)
[2018-08-16 16:31] VITALS: BP 105/61
== END 2018-08-16 16:33 | disposition home or self-care (01) ==
LOC: ER 13:05
DX: R07.89 Other chest pain (principal); R51 Headache; N39.0 Urinary tract infection, site not specified; R60.0 Localized edema; E66.01 Morbid (severe) obesity due to excess calories; E78.00 Pure hypercholesterolemia, unspecified; I10 Essential (primary) hypertension; K21.9 Gastro-esophageal reflux disease without esophagitis; E11.9 Type 2 diabetes mellitus without complications; Z90.49 Acquired absence of other specified parts of digestive tract; Z90.710 Acquired absence of both cervix and uterus; Z94.0 Kidney transplant status; Z99.2 Dependence on renal dialysis; Z79.82 Long term (current) use of aspirin; Z79.899 Other long term (current) drug therapy; Z79.4 Long term (current) use of insulin
CPT/HCPCS: 36415; 71045; 80053; 81001; 81025; 82948; 83880; 84484; 85025; 85610; 87077; 87088; 87186; 93005; 96374; 99285; J2270

== ENCOUNTER 2018-10-17 08:48 | Outpatient (CLI) | payer MEDICARE, MEDICAID ==
[2018-10-17 10:04] LABS: CLARITY,URINE SLIGHTLY CLOUDY (Clear); COLOR,URINE STRAW (Yellow); GLUCOSE, URINE >=1000 mg/dl (Neg); KETONES,URINE NEGATIVE (Neg); LEUKOCYTE ESTERASE ,URINE SMALL (Neg); NITRITES, URINE NEGATIVE (Neg); OCCULT BLOOD,URINE MODERATE (Neg); PROTEIN,URINE TRACE mg/dl (Neg); UROBILINOGEN,URINE 0.2 E.U/dL (0.2-1.0)
[2018-10-17 10:05] LABS: BASOPHILS % (AUTO) 0.5 % (0-1); EOSINOPHILS # (AUTO) 0.3 X10'3 (0-0.9); EOSINOPHILS % (AUTO) 3.4 % (0-6); HEMATOCRIT 33.8 % (35.0-45.0); HEMOGLOBIN 11.1 g/dl (12.0-16.0); LYMPHOCYTES # (AUTO) 0.7 X10'3 (1.1-4.8); LYMPHOCYTES % (AUTO) 8.6 % (21-51); MEAN CORPUSCULAR HEMOGLOBIN 27.2 PG (27.0-31.0); MEAN CORPUSCULAR VOLUME 82.6 FL (78-98); MEAN PLATELET VOLUME 9.3 FL (7.4-10.4); MONOCYTES # (AUTO) 0.7 X10'3 (0-0.9); MONOCYTES % (AUTO) 8.6 % (2-12); NEUTROPHILS # (AUTO) 6.8 X10'3 (1.8-7.7); NEUTROPHILS % (AUTO) 78.9 % (42-75); PLATELET COUNT 296 X10'3 (140-440); RED CELL DISTRIBUTION WIDTH 13.8 % (11.5-14.5); WHITE BLOOD COUNT 8.5 X10'3 (4.5-11.0)
[2018-10-17 10:07] LABS: UA COLLECTION TYPE CLN CATCH MIDSTREAM
[2018-10-17 10:12] LABS: ALANINE AMINOTRANSFERASE 21 U/L (12-78); ALBUMIN 3.1 G/DL (3.4-5.0); ALBUMIN/GLOBULIN RATIO 0.6 (1.1-1.5); ALKALINE PHOSPHATASE 175 IU/L (46-116); ANION GAP 16 (8-16); ASPARTATE AMINO TRANSFERASE 10 U/L (10-37); BILIRUBIN,TOTAL 0.4 MG/DL (0.1-1.0); BLOOD UREA NITROGEN 23 MG/DL (7-18); BUN/CREATININE RATIO 8.8 (6.6-38.0); CALCIUM 8.9 MG/DL (8.5-10.1); CHLORIDE 100 MMOL/L (99-107); GLUCOSE 265 MG/DL (70-104); PHOSPHORUS 3.1 MG/DL (2.3-4.5); POTASSIUM 3.3 MMOL/L (3.5-5.1); SODIUM 134 MMOL/L (135-145); TOTAL CARBON DIOXIDE 18.1 MMOL/L (24-32); TOTAL PROTEIN 8.5 G/DL (6.4-8.2); eGFR 20 ML/MIN
[2018-10-17 10:24] LABS: BACTERIA,URINE 1+ /HPF (Neg)
[2018-10-17 10:25] LABS: SQUAMOUS EPITHELIAL CELL,UR FEW /LPF (FEW)
[2018-10-17 10:47] LABS: TOTAL PROTEIN,URINE RANDOM 56.7 MG/DL; UA PROTEIN/CREATININE RATIO 1.38 mg/mg Cr (0-0.16)
[2018-10-18 08:48] LABS: VITAMIN D, 25-HYDROXY 13.1 ng/mL (30.0-100.0)
== END 2018-10-17 23:59 | disposition home or self-care (01) ==
LOC: LAB 08:48
PROVIDERS: ATTEND Internal Medicine Critical Care Medicine
DX: E55.9 Vitamin D deficiency, unspecified (principal); R80.9 Proteinuria, unspecified; N39.0 Urinary tract infection, site not specified; D63.1 Anemia in chronic kidney disease; K21.9 Gastro-esophageal reflux disease without esophagitis; I10 Essential (primary) hypertension; E11.9 Type 2 diabetes mellitus without complications; Z94.0 Kidney transplant status; Z79.82 Long term (current) use of aspirin; Z79.4 Long term (current) use of insulin; Z79.899 Other long term (current) drug therapy
CPT/HCPCS: 36415; 80053; 80197; 81001; 82306; 82570; 84100; 84156; 85025; 87077; 87088; 87186

== ENCOUNTER 2018-10-24 10:41 | Outpatient (CLI) | payer MEDICARE, MEDICAID ==
[2018-10-24 11:52] LABS: ALBUMIN 3.4 G/DL (3.4-5.0); ANION GAP 13 (8-16); BLOOD UREA NITROGEN 19 MG/DL (7-18); BUN/CREATININE RATIO 8.4 (6.6-38.0); CALCIUM 9.4 MG/DL (8.5-10.1); CHLORIDE 99 MMOL/L (99-107); CREATININE 2.27 MG/DL (0.40-0.90); GLUCOSE 307 MG/DL (70-104); PHOSPHORUS 2.8 MG/DL (2.3-4.5); POTASSIUM 3.6 MMOL/L (3.5-5.1); SODIUM 133 MMOL/L (135-145); TOTAL CARBON DIOXIDE 21.1 MMOL/L (24-32); eGFR 23 ML/MIN
[2018-10-29] MEDS ORDERED: INSU300I SQ (10:39)
[2018-11-01] MEDS ORDERED: PRED10TA PO (17:15)
[2018-11-01] MEDS ORDERED: CEPH500C5 PO (17:15)
== END 2018-10-24 23:59 | disposition home or self-care (01) ==
LOC: LAB 10:41
PROVIDERS: ATTEND Internal Medicine Critical Care Medicine
DX: Z94.0 Kidney transplant status (principal); N17.9 Acute kidney failure, unspecified
CPT/HCPCS: 36415; 80069; 80197

== ENCOUNTER 2018-10-28 17:45 | Inpatient (IN) | payer MEDICARE, MEDICAID | END 2018-11-01 17:59 | disposition home or self-care (01) | LOC: PCU 3S 17:45 → SUR 3N 11-01 01:00 | DX: T86.11 Kidney transplant rejection (principal); N18.6 End stage renal disease; I12.0 Hypertensive chronic kidney disease with stage 5 chronic kidney disease or end stage renal disease ==

== ENCOUNTER 2018-11-15 09:00 | Outpatient (CLI) | payer MEDICARE, MEDICAID ==
[~2018-11-15 09:00] MED LIST changes: -AMLO2.5T2 PO; +CEPH500C5 PO; -CYCL-1 PO; +INSU300I SQ; -PANT-47 PO; +PRED10TA PO; -PRED5TAB PO
== END 2018-11-15 23:59 | disposition home or self-care (01) ==
LOC: LAB 09:00
PROVIDERS: ATTEND Nurse Practitioner
DX: E55.9 Vitamin D deficiency, unspecified (principal); E03.9 Hypothyroidism, unspecified; E11.65 Type 2 diabetes mellitus with hyperglycemia; E11.22 Type 2 diabetes mellitus with diabetic chronic kidney disease; I12.0 Hypertensive chronic kidney disease with stage 5 chronic kidney disease or end stage renal disease; N18.6 End stage renal disease; T86.11 Kidney transplant rejection; K21.9 Gastro-esophageal reflux disease without esophagitis; Z79.82 Long term (current) use of aspirin; Z79.899 Other long term (current) drug therapy; Z79.4 Long term (current) use of insulin
CPT/HCPCS: 36415; 82306; 84439; 84443

== ENCOUNTER 2018-11-15 09:11 | Outpatient (CLI) | payer MEDICARE, MEDICAID ==
[2018-11-15 10:38] LABS: BASOPHILS # (AUTO) 0.1 X10'3 (0-0.2); BASOPHILS % (AUTO) 0.8 % (0-1); EOSINOPHILS # (AUTO) 0.4 X10'3 (0-0.9); EOSINOPHILS % (AUTO) 4.8 % (0-6); HEMATOCRIT 35.6 % (35.0-45.0); HEMOGLOBIN 11.6 g/dl (12.0-16.0); LYMPHOCYTES # (AUTO) 0.8 X10'3 (1.1-4.8); MEAN CORPUSCULAR HEMOGLOBIN 27.2 PG (27.0-31.0); MEAN CORPUSCULAR HGB CONC 32.5 g/dL (33.0-36.5); MEAN CORPUSCULAR VOLUME 83.5 FL (78-98); MEAN PLATELET VOLUME 9.3 FL (7.4-10.4); MONOCYTES # (AUTO) 0.6 X10'3 (0-0.9); MONOCYTES % (AUTO) 6.4 % (2-12); NEUTROPHILS # (AUTO) 7.3 X10'3 (1.8-7.7); PLATELET COUNT 169 X10'3 (140-440); RED BLOOD COUNT 4.26 X10'6 (4.20-5.60); RED CELL DISTRIBUTION WIDTH 16.3 % (11.5-14.5); WHITE BLOOD COUNT 9.2 X10'3 (4.5-11.0)
[2018-11-15 10:41] LABS: CLARITY,URINE CLEAR (Clear); COLOR,URINE STRAW (Yellow); GLUCOSE, URINE 250 mg/dl (Neg); KETONES,URINE NEGATIVE (Neg); LEUKOCYTE ESTERASE ,URINE NEGATIVE (Neg); NITRITES, URINE NEGATIVE (Neg); OCCULT BLOOD,URINE TRACE-LYSED (Neg); PROTEIN,URINE TRACE mg/dl (Neg); UROBILINOGEN,URINE 0.2 E.U/dL (0.2-1.0)
[2018-11-15 10:51] LABS: UA COLLECTION TYPE CLN CATCH MIDSTREAM
[2018-11-15 10:52] LABS: ALANINE AMINOTRANSFERASE 27 U/L (12-78); ALBUMIN/GLOBULIN RATIO 0.8 (1.1-1.5); ALKALINE PHOSPHATASE 114 IU/L (46-116); ANION GAP 13 (8-16); ASPARTATE AMINO TRANSFERASE 11 U/L (10-37); BILIRUBIN,TOTAL 0.5 MG/DL (0.1-1.0); BLOOD UREA NITROGEN 32 MG/DL (7-18); BUN/CREATININE RATIO 17.1 (6.6-38.0); CALCIUM 8.5 MG/DL (8.5-10.1); CHLORIDE 103 MMOL/L (99-107); CREATININE 1.87 MG/DL (0.40-0.90); GLUCOSE 141 MG/DL (70-104); PHOSPHORUS 2.7 MG/DL (2.3-4.5); POTASSIUM 3.5 MMOL/L (3.5-5.1); SODIUM 136 MMOL/L (135-145); TOTAL CARBON DIOXIDE 19.7 MMOL/L (24-32); eGFR 29 ML/MIN
[2018-11-15 10:53] LABS: BACTERIA,URINE 4+ /HPF (Neg); RBC,URINE 0-2 /HPF (0-2); SQUAMOUS EPITHELIAL CELL,UR FEW /LPF (FEW); WBC,URINE 0-4 /HPF (0-4)
== END 2018-11-15 23:59 | disposition home or self-care (01) ==
LOC: LAB 09:11
PROVIDERS: ATTEND Internal Medicine
DX: Z09 Encounter for follow-up examination after completed treatment for conditions other than malignant neoplasm (principal); E83.30 Disorder of phosphorus metabolism, unspecified; R35.0 Frequency of micturition; B25.9 Cytomegaloviral disease, unspecified; B33.8 Other specified viral diseases; T86.10 Unspecified complication of kidney transplant; I10 Essential (primary) hypertension; E11.9 Type 2 diabetes mellitus without complications; K21.9 Gastro-esophageal reflux disease without esophagitis; Z94.0 Kidney transplant status; Z79.82 Long term (current) use of aspirin; Z79.4 Long term (current) use of insulin
CPT/HCPCS: 36415; 80053; 80197; 81001; 84100; 85025

== ENCOUNTER 2018-12-30 02:24 | Emergency (ER) | payer MEDICARE, MEDICAID ==
[~2018-12-30] VITALS: Ht 162.6 cm; Wt 99.0 kg
[2018-12-30] MEDS ORDERED: HYDROcodone/acetaminophen 10/325mg tab PO ONE (02:55)
[2018-12-30] MEDS ORDERED: ketorolac trometh inj. 60 MG/2 ML VIAL IM ONE (02:55)
--- NOTE | 2018-12-30 06:30 | NUR ---
patient received asleep.family at bedside.
[2018-12-30] MEDS ORDERED: HYDR-4353 PO (06:48)
--- NOTE | 2018-12-30 06:59 | NUR ---
MRI screening form filled out and faxed to number listed at top of form.
--- NOTE | 2018-12-30 07:40 | NUR ---
patient to mri.
--- NOTE | 2018-12-30 08:21 | NUR ---
awaiting mri result.patient back in the room.family at bedside.
[2018-12-30 08:51] VITALS: BP 110/65
== END 2018-12-30 08:52 | disposition home or self-care (01) ==
LOC: ER 02:26
DX: M54.12 Radiculopathy, cervical region (principal); G43.909 Migraine, unspecified, not intractable, without status migrainosus; E78.00 Pure hypercholesterolemia, unspecified; I10 Essential (primary) hypertension; K21.9 Gastro-esophageal reflux disease without esophagitis; E11.9 Type 2 diabetes mellitus without complications; Z90.49 Acquired absence of other specified parts of digestive tract; Z90.710 Acquired absence of both cervix and uterus; Z79.82 Long term (current) use of aspirin; Z79.4 Long term (current) use of insulin; Z79.899 Other long term (current) drug therapy
CPT/HCPCS: 72141; 93005; 96372; 99284; J1885

== ENCOUNTER 2019-02-06 09:19 | Outpatient (CLI) | payer MEDICARE, MEDICAID ==
[2019-02-06 11:32] LABS: BASOPHILS # (AUTO) 0.1 X10'3 (0-0.2); BASOPHILS % (AUTO) 1.3 % (0-1); EOSINOPHILS # (AUTO) 0.4 X10'3 (0-0.9); EOSINOPHILS % (AUTO) 4.3 % (0-6); HEMATOCRIT 34.8 % (35.0-45.0); HEMOGLOBIN 11.3 g/dl (12.0-16.0); LYMPHOCYTES # (AUTO) 0.8 X10'3 (1.1-4.8); LYMPHOCYTES % (AUTO) 9.2 % (21-51); MEAN CORPUSCULAR HGB CONC 32.3 g/dL (33.0-36.5); MEAN CORPUSCULAR VOLUME 83.6 FL (78-98); MEAN PLATELET VOLUME 8.9 FL (7.4-10.4); MONOCYTES # (AUTO) 0.8 X10'3 (0-0.9); MONOCYTES % (AUTO) 9.5 % (2-12); NEUTROPHILS # (AUTO) 6.7 X10'3 (1.8-7.7); NEUTROPHILS % (AUTO) 75.7 % (42-75); PLATELET COUNT 310 X10'3 (140-440); RED BLOOD COUNT 4.17 X10'6 (4.20-5.60); RED CELL DISTRIBUTION WIDTH 15.5 % (11.5-14.5); WHITE BLOOD COUNT 8.9 X10'3 (4.5-11.0)
[2019-02-06 11:34] LABS: CLARITY,URINE SLIGHTLY CLOUDY (Clear); COLOR,URINE STRAW (Yellow); GLUCOSE, URINE >=1000 mg/dl (Neg); KETONES,URINE NEGATIVE (Neg); LEUKOCYTE ESTERASE ,URINE TRACE (Neg); NITRITES, URINE NEGATIVE (Neg); OCCULT BLOOD,URINE SMALL (Neg); PROTEIN,URINE TRACE mg/dl (Neg); UROBILINOGEN,URINE 0.2 E.U/dL (0.2-1.0)
[2019-02-06 11:43] LABS: BACTERIA,URINE 4+ /HPF (Neg); MUCUS STRANDS NONE SEEN /LPF (Neg); RBC,URINE 0-2 /HPF (0-2); SQUAMOUS EPITHELIAL CELL,UR MANY /LPF (FEW); WBC CLUMPS,URINE FEW /HPF (NEGATIVE); WBC,URINE 30-50 /HPF (0-4)
[2019-02-06 11:57] LABS: UA COLLECTION TYPE CLN CATCH MIDSTREAM
[2019-02-06 12:01] LABS: ALANINE AMINOTRANSFERASE 19 U/L (12-78); ALBUMIN 3.4 G/DL (3.4-5.0); ALBUMIN/GLOBULIN RATIO 0.7 (1.1-1.5); ALKALINE PHOSPHATASE 196 IU/L (46-116); ANION GAP 14 (8-16); ASPARTATE AMINO TRANSFERASE 8 U/L (10-37); BILIRUBIN,TOTAL 0.3 MG/DL (0.1-1.0); BLOOD UREA NITROGEN 35 MG/DL (7-18); BUN/CREATININE RATIO 10.2 (6.6-38.0); CALCIUM 9.9 MG/DL (8.5-10.1); CHLORIDE 99 MMOL/L (99-107); CHOL/HDL RATIO 3.6 (0.00-4.99); CHOLESTEROL 137 MG/DL (0-200); CREATININE 3.44 MG/DL (0.40-0.90); HDL CHOLESTEROL 38 MG/DL (35-60); LDL CHOLESTEROL 58 MG/DL (50-100); POTASSIUM 3.8 MMOL/L (3.5-5.1); SODIUM 130 MMOL/L (135-145); TOTAL CARBON DIOXIDE 17.1 MMOL/L (24-32); TOTAL PROTEIN 8.1 G/DL (6.4-8.2); TRIGLYCERIDES 414 MG/DL (20-135); eGFR 14 ML/MIN
[2019-02-06 12:16] LABS: HEMOGLOBIN A1C 12.9 % (4.5-6.2)
[2019-02-06 13:10] LABS: GLUCOSE 468 MG/DL (70-104)
== END 2019-02-06 23:59 | disposition home or self-care (01) ==
LOC: LAB 09:19
PROVIDERS: ATTEND Internal Medicine
DX: Z09 Encounter for follow-up examination after completed treatment for conditions other than malignant neoplasm (principal); T86.10 Unspecified complication of kidney transplant; E83.30 Disorder of phosphorus metabolism, unspecified; B25.9 Cytomegaloviral disease, unspecified; B33.8 Other specified viral diseases; I10 Essential (primary) hypertension; E11.9 Type 2 diabetes mellitus without complications; Y83.0 Surgical operation with transplant of whole organ as the cause of abnormal reaction of the patient, or of later complication, without mention of misadventure at the time of the procedure
CPT/HCPCS: 36415; 80053; 80061; 80197; 81001; 83036; 85025

== ENCOUNTER 2019-02-15 09:24 | Outpatient (CLI) | payer MEDICARE, MEDICAID ==
[2019-02-15 10:40] LABS: ALBUMIN 3.4 G/DL (3.4-5.0); ANION GAP 12 (8-16); BLOOD UREA NITROGEN 39 MG/DL (7-18); BUN/CREATININE RATIO 13.8 (6.6-38.0); CALCIUM 9.3 MG/DL (8.5-10.1); CHLORIDE 105 MMOL/L (99-107); CREATININE 2.83 MG/DL (0.40-0.90); GLUCOSE 168 MG/DL (70-104); POTASSIUM 3.6 MMOL/L (3.5-5.1); SODIUM 137 MMOL/L (135-145); TOTAL CARBON DIOXIDE 20.4 MMOL/L (24-32); eGFR 18 ML/MIN
== END 2019-02-15 23:59 | disposition home or self-care (01) ==
LOC: LAB 09:24
PROVIDERS: ATTEND Internal Medicine Nephrology
DX: Z48.298 Encounter for aftercare following other organ transplant (principal); T86.10 Unspecified complication of kidney transplant; D68.9 Coagulation defect, unspecified; I10 Essential (primary) hypertension; E11.9 Type 2 diabetes mellitus without complications; Y83.0 Surgical operation with transplant of whole organ as the cause of abnormal reaction of the patient, or of later complication, without mention of misadventure at the time of the procedure
CPT/HCPCS: 36415; 80048; 80197; 85610

== ENCOUNTER 2019-03-14 03:22 | Emergency (ER) | payer MEDICARE, MEDICAID ==
[~2019-03-14] VITALS: Ht 162.6 cm; Wt 98.5 kg
[2019-03-14] MEDS ORDERED: HYDROcodone/acetaminophen 10/325mg tab PO ONE (07:10)
[2019-03-14] MEDS ORDERED: HYDR-4353 PO (08:14)
[2019-03-14 08:34] VITALS: BP 125/66
== END 2019-03-14 08:35 | disposition home or self-care (01) ==
LOC: ER 03:23
DX: M25.532 Pain in left wrist (principal); G89.29 Other chronic pain; G43.909 Migraine, unspecified, not intractable, without status migrainosus; E78.00 Pure hypercholesterolemia, unspecified; K21.9 Gastro-esophageal reflux disease without esophagitis; I10 Essential (primary) hypertension; Z79.899 Other long term (current) drug therapy; Z79.82 Long term (current) use of aspirin; Z79.4 Long term (current) use of insulin; Z94.0 Kidney transplant status; Z99.2 Dependence on renal dialysis; Z90.49 Acquired absence of other specified parts of digestive tract; Z98.890 Other specified postprocedural states; Z90.710 Acquired absence of both cervix and uterus
CPT/HCPCS: 73110; 99284

== ENCOUNTER 2019-03-15 09:12 | Outpatient (CLI) | payer MEDICARE, MEDICAID ==
[~2019-03-15 09:12] MED LIST changes: +HYDR-4353 PO
[2019-03-15 11:06] LABS: BASOPHILS % (AUTO) 0.3 % (0-1); EOSINOPHILS # (AUTO) 0.4 X10'3 (0-0.9); EOSINOPHILS % (AUTO) 4.4 % (0-6); HEMATOCRIT 33.4 % (35.0-45.0); HEMOGLOBIN 10.9 g/dl (12.0-16.0); LYMPHOCYTES # (AUTO) 0.6 X10'3 (1.1-4.8); LYMPHOCYTES % (AUTO) 7.5 % (21-51); MEAN CORPUSCULAR HEMOGLOBIN 27.7 PG (27.0-31.0); MEAN CORPUSCULAR HGB CONC 32.6 g/dL (33.0-36.5); MEAN PLATELET VOLUME 9.4 FL (7.4-10.4); MONOCYTES # (AUTO) 0.4 X10'3 (0-0.9); MONOCYTES % (AUTO) 5.1 % (2-12); NEUTROPHILS # (AUTO) 7.2 X10'3 (1.8-7.7); NEUTROPHILS % (AUTO) 82.7 % (42-75); PLATELET COUNT 206 X10'3 (140-440); RED BLOOD COUNT 3.93 X10'6 (4.20-5.60); RED CELL DISTRIBUTION WIDTH 15.2 % (11.5-14.5); WHITE BLOOD COUNT 8.7 X10'3 (4.5-11.0)
[2019-03-15 11:10] LABS: ALANINE AMINOTRANSFERASE 17 U/L (12-78); ALBUMIN 3.8 G/DL (3.4-5.0); ALBUMIN/GLOBULIN RATIO 0.9 (1.1-1.5); ALKALINE PHOSPHATASE 139 IU/L (46-116); ANION GAP 9 (8-16); ASPARTATE AMINO TRANSFERASE 6 U/L (10-37); BILIRUBIN,TOTAL 0.4 MG/DL (0.1-1.0); BLOOD UREA NITROGEN 28 MG/DL (7-18); BUN/CREATININE RATIO 10.2 (6.6-38.0); CALCIUM 9.2 MG/DL (8.5-10.1); CHLORIDE 100 MMOL/L (99-107); CREATININE 2.75 MG/DL (0.40-0.90); GLUCOSE 330 MG/DL (70-104); PHOSPHORUS 2.7 MG/DL (2.3-4.5); POTASSIUM 4.2 MMOL/L (3.5-5.1); SODIUM 130 MMOL/L (135-145); TOTAL CARBON DIOXIDE 20.6 MMOL/L (24-32); TOTAL PROTEIN 8.2 G/DL (6.4-8.2); eGFR 18 ML/MIN
[2019-03-15 12:01] LABS: CLARITY,URINE CLEAR (Clear); COLOR,URINE YELLOW (Yellow); GLUCOSE, URINE >=1000 mg/dl (Neg); KETONES,URINE NEGATIVE (Neg); LEUKOCYTE ESTERASE ,URINE NEGATIVE (Neg); NITRITES, URINE NEGATIVE (Neg); OCCULT BLOOD,URINE SMALL (Neg); PH,URINE 5.5 (4.8-8.0); PROTEIN,URINE 30 mg/dl (Neg); UROBILINOGEN,URINE 0.2 E.U/dL (0.2-1.0)
[2019-03-15 12:09] LABS: UA COLLECTION TYPE NON-SPECIFIED
[2019-03-15 12:10] LABS: BACTERIA,URINE 1+ /HPF (Neg); RBC,URINE NONE SEEN /HPF (0-2); SQUAMOUS EPITHELIAL CELL,UR MODERATE /LPF (FEW); WBC,URINE 0-4 /HPF (0-4)
[2019-03-15 13:45] LABS: TOTAL PROTEIN,URINE RANDOM 101.2 MG/DL; UA PROTEIN/CREATININE RATIO 1.33 mg/mg Cr (0-0.16)
[2019-03-16 11:30] LABS: VITAMIN D, 25-HYDROXY 12.5 ng/mL (30.0-100.0)
== END 2019-03-15 23:59 | disposition home or self-care (01) ==
LOC: LAB 09:12
DX: E78.5 Hyperlipidemia, unspecified (principal); E55.9 Vitamin D deficiency, unspecified; E11.29 Type 2 diabetes mellitus with other diabetic kidney complication; I12.9 Hypertensive chronic kidney disease with stage 1 through stage 4 chronic kidney disease, or unspecified chronic kidney disease; E11.22 Type 2 diabetes mellitus with diabetic chronic kidney disease; N18.3 Chronic kidney disease, stage 3 (moderate); K21.9 Gastro-esophageal reflux disease without esophagitis; D63.1 Anemia in chronic kidney disease; N30.00 Acute cystitis without hematuria; N17.9 Acute kidney failure, unspecified; Z09 Encounter for follow-up examination after completed treatment for conditions other than malignant neoplasm; R35.0 Frequency of micturition; T86.10 Unspecified complication of kidney transplant; B35.9 Dermatophytosis, unspecified; B33.8 Other specified viral diseases
CPT/HCPCS: 36415; 80053; 80197; 81001; 82306; 82570; 84100; 84156; 85025

== ENCOUNTER 2019-07-30 01:44 | Emergency (ER) | payer MEDICARE, MEDICAID ==
[~2019-07-30] VITALS: Ht 172.7 cm; Wt 72.0 kg
[~2019-07-30 01:44] MED LIST changes: -HYDR-4353 PO
[2019-07-30] MEDS ORDERED: ipratropium/albuterol 3ml nebule NEB ONE (02:05)
[2019-07-30] MEDS ORDERED: Cipro HC otic suspension 10ML bottle LEFT EAR ONE (02:50)
[2019-07-30] MEDS ORDERED: dexamethasone 4mg tablet PO ONE (02:50)
[2019-07-30] MEDS ORDERED: PRED20TA PO (02:58)
[2019-07-30] MEDS ORDERED: ALBU6.7H9 INH (02:58)
[2019-07-30 03:40] VITALS: BP 158/67
[2019-07-30] MEDS ORDERED: BENZ-16 PO (03:40)
[2019-07-30] MEDS ORDERED: benzonatate 100mg capsule PO ONE (03:40)
[2019-07-30] MEDS ORDERED: fluconazole 100mg tablet PO ONE (03:40)
[2019-07-30] MEDS ORDERED: diphenhydrAMINE 25 MG/10 ML UD oral solution PO ONE (03:45)
[2019-07-30] MEDS ORDERED: diphenhydrAMINE 25mg capsule PO ONE (03:55)
== END 2019-07-30 04:13 | disposition home or self-care (01) ==
LOC: ER 01:45
DX: J20.9 Acute bronchitis, unspecified (principal); H60.92 Unspecified otitis externa, left ear; G43.909 Migraine, unspecified, not intractable, without status migrainosus; E78.00 Pure hypercholesterolemia, unspecified; K21.9 Gastro-esophageal reflux disease without esophagitis; I12.0 Hypertensive chronic kidney disease with stage 5 chronic kidney disease or end stage renal disease; E11.22 Type 2 diabetes mellitus with diabetic chronic kidney disease; N18.6 End stage renal disease; Z99.2 Dependence on renal dialysis; Z86.2 Personal history of diseases of the blood and blood-forming organs and certain disorders involving the immune mechanism; Z94.0 Kidney transplant status; Z90.49 Acquired absence of other specified parts of digestive tract; Z90.710 Acquired absence of both cervix and uterus; Z98.890 Other specified postprocedural states; Z79.82 Long term (current) use of aspirin; Z79.4 Long term (current) use of insulin; Z79.899 Other long term (current) drug therapy
CPT/HCPCS: 71045; 94640; 94760; 99284; Q0163

== ENCOUNTER 2019-10-03 08:28 | Outpatient (CLI) | payer MEDICARE, MEDICAID ==
[~2019-10-03 08:28] MED LIST changes: +ALBU6.7H9 INH
[2019-10-03 10:01] LABS: CLARITY,URINE CLOUDY (Clear); COLOR,URINE STRAW (Yellow); GLUCOSE, URINE >=1000 mg/dl (Neg); KETONES,URINE NEGATIVE (Neg); LEUKOCYTE ESTERASE ,URINE NEGATIVE (Neg); NITRITES, URINE NEGATIVE (Neg); OCCULT BLOOD,URINE TRACE-INTACT (Neg); PH,URINE 5.5 (4.8-8.0); PROTEIN,URINE 30 mg/dl (Neg); UROBILINOGEN,URINE 0.2 E.U/dL (0.2-1.0)
[2019-10-03 10:07] LABS: UA COLLECTION TYPE CLN CATCH MIDSTREAM
[2019-10-03 10:08] LABS: BACTERIA,URINE 3+ /HPF (Neg); SQUAMOUS EPITHELIAL CELL,UR FEW /LPF (FEW)
[2019-10-03 10:09] LABS: RBC,URINE 0-2 /HPF (0-2); WBC CLUMPS,URINE MODERATE /HPF (NEGATIVE)
[2019-10-03 10:10] LABS: WBC,URINE 30-50 /HPF (0-4)
[2019-10-03 10:13] LABS: BASOPHILS # (AUTO) 0.1 X10'3 (0-0.2); BASOPHILS % (AUTO) 0.5 % (0-1); EOSINOPHILS # (AUTO) 0.6 X10'3 (0-0.9); EOSINOPHILS % (AUTO) 5.7 % (0-6); HEMATOCRIT 32.8 % (35.0-45.0); HEMOGLOBIN 10.8 g/dl (12.0-16.0); LYMPHOCYTES # (AUTO) 0.6 X10'3 (1.1-4.8); LYMPHOCYTES % (AUTO) 6.5 % (21-51); MEAN CORPUSCULAR HEMOGLOBIN 27.5 PG (27.0-31.0); MEAN CORPUSCULAR HGB CONC 32.9 g/dL (33.0-36.5); MEAN CORPUSCULAR VOLUME 83.6 FL (78-98); MEAN PLATELET VOLUME 9.2 FL (7.4-10.4); MONOCYTES # (AUTO) 0.8 X10'3 (0-0.9); NEUTROPHILS # (AUTO) 7.9 X10'3 (1.8-7.7); NEUTROPHILS % (AUTO) 79.3 % (42-75); PLATELET COUNT 276 X10'3 (140-440); RED BLOOD COUNT 3.93 X10'6 (4.20-5.60); RED CELL DISTRIBUTION WIDTH 15.5 % (11.5-14.5); WHITE BLOOD COUNT 9.9 X10'3 (4.5-11.0)
[2019-10-03 10:33] LABS: HEMOGLOBIN A1C 10.9 % (4.5-6.2)
[2019-10-03 10:52] LABS: ALANINE AMINOTRANSFERASE 9 U/L (12-78); ALBUMIN 3.8 G/DL (3.4-5.0); ALBUMIN/GLOBULIN RATIO 0.9 (1.1-1.5); ALKALINE PHOSPHATASE 127 IU/L (46-116); ANION GAP 18 (8-16); ASPARTATE AMINO TRANSFERASE 4 U/L (10-37); BILIRUBIN,TOTAL 0.4 MG/DL (0.1-1.0); BLOOD UREA NITROGEN 39 MG/DL (7-18); CALCIUM 9.3 MG/DL (8.5-10.1); CHLORIDE 101 MMOL/L (99-107); CHOL/HDL RATIO 6.6 (0.00-4.99); CHOLESTEROL 230 MG/DL (0-200); FERRITIN 408 NG/ML (8-252); GLUCOSE 362 MG/DL (70-104); HDL CHOLESTEROL 35 MG/DL (35-60); LDL CHOLESTEROL 140 MG/DL (50-100); MAGNESIUM 1.5 MG/DL (1.5-2.4); PHOSPHORUS 4.1 MG/DL (2.3-4.5); POTASSIUM 3.6 MMOL/L (3.5-5.1); SODIUM 132 MMOL/L (135-145); TOTAL PROTEIN 8.1 G/DL (6.4-8.2); TRIGLYCERIDES 362 MG/DL (20-135)
[2019-10-03 10:56] LABS: % IRON SATURATION 26 % (11-46); IRON 58 UG/DL (49-151); TOTAL IRON BINDING CAPACITY 224 UG/DL (259-388)
[2019-10-03 10:57] LABS: eGFR 11 ML/MIN
[2019-10-03 11:02] LABS: TOTAL CARBON DIOXIDE 12.7 MMOL/L (24-32)
[2019-10-03 11:15] LABS: BUN/CREATININE RATIO 9.2 (6.6-38.0); CREATININE 4.26 MG/DL (0.40-0.90)
[2019-10-04 06:58] LABS: VITAMIN D, 25-HYDROXY 11.4 ng/mL (30.0-100.0)
[2019-10-04 08:13] LABS: MICROALB/CRT, RATIO 77.5 mg/g creat (0.0-30.0)
[2019-10-08] MEDS ORDERED: PRE5T PO (14:19)
[2019-10-08] MEDS ORDERED: CEPH500C5 PO (14:19)
== END 2019-10-03 23:59 | disposition home or self-care (01) ==
LOC: LAB 08:28
PROVIDERS: ATTEND Nurse Practitioner
DX: E03.9 Hypothyroidism, unspecified (principal); E55.9 Vitamin D deficiency, unspecified; D50.9 Iron deficiency anemia, unspecified; E78.5 Hyperlipidemia, unspecified; I12.0 Hypertensive chronic kidney disease with stage 5 chronic kidney disease or end stage renal disease; E11.22 Type 2 diabetes mellitus with diabetic chronic kidney disease; N18.6 End stage renal disease
CPT/HCPCS: 36415; 80053; 80061; 80069; 80197; 81001; 82043; 82306; 82570; 82728; 83036; 83540; 83550; 83735; 84439; 84443; 85025

== ENCOUNTER 2019-10-27 12:37 | Emergency (ER) | payer MEDICARE, MEDICAID ==
[~2019-10-27] VITALS: Ht 165.1 cm; Wt 89.0 kg
[~2019-10-27 12:37] MED LIST changes: +PRE5T PO; -PRED10TA PO
--- NOTE | 2019-10-27 13:54 | NUR ---
vascular study in progress
[2019-10-27 14:35] VITALS: BP 117/57
[2019-10-27] MEDS ORDERED: HYDR-4353 PO (14:52)
== END 2019-10-27 15:02 | disposition home or self-care (01) ==
LOC: ER 12:38
DX: M79.605 Pain in left leg (principal); M79.662 Pain in left lower leg; G43.909 Migraine, unspecified, not intractable, without status migrainosus; E78.00 Pure hypercholesterolemia, unspecified; I10 Essential (primary) hypertension; K21.9 Gastro-esophageal reflux disease without esophagitis; E11.9 Type 2 diabetes mellitus without complications; Z90.49 Acquired absence of other specified parts of digestive tract; Z94.0 Kidney transplant status; Z99.2 Dependence on renal dialysis; Z79.82 Long term (current) use of aspirin; Z79.899 Other long term (current) drug therapy; Z79.4 Long term (current) use of insulin
CPT/HCPCS: 73590; 93971; 99284

== ENCOUNTER 2019-12-13 10:25 | Outpatient (CLI) | payer MEDICARE, MEDICAID ==
[~2019-12-13 10:25] MED LIST changes: +TACR1CAP24 PO; -TACR1CAP28 PO
[2019-12-13 11:34] LABS: BASOPHILS # (AUTO) 0.1 X10'3 (0-0.2); BASOPHILS % (AUTO) 0.7 % (0-1); EOSINOPHILS # (AUTO) 0.5 X10'3 (0-0.9); EOSINOPHILS % (AUTO) 5.5 % (0-6); HEMATOCRIT 36.6 % (35.0-45.0); HEMOGLOBIN 11.9 g/dl (12.0-16.0); LYMPHOCYTES # (AUTO) 0.9 X10'3 (1.1-4.8); MEAN CORPUSCULAR HEMOGLOBIN 27.4 PG (27.0-31.0); MEAN CORPUSCULAR HGB CONC 32.6 g/dL (33.0-36.5); MONOCYTES # (AUTO) 0.5 X10'3 (0-0.9); MONOCYTES % (AUTO) 5.7 % (2-12); NEUTROPHILS # (AUTO) 6.8 X10'3 (1.8-7.7); NEUTROPHILS % (AUTO) 78.1 % (42-75); PLATELET COUNT 268 X10'3 (140-440); RED BLOOD COUNT 4.36 X10'6 (4.20-5.60); RED CELL DISTRIBUTION WIDTH 15.2 % (11.5-14.5); WHITE BLOOD COUNT 8.7 X10'3 (4.5-11.0)
[2019-12-13 11:49] LABS: ALBUMIN 4.1 G/DL (3.4-5.0); ANION GAP 15 (8-16); BLOOD UREA NITROGEN 38 MG/DL (7-18); CALCIUM 9.5 MG/DL (8.5-10.1); CHLORIDE 103 MMOL/L (99-107); CREATININE 3.47 MG/DL (0.40-0.90); GLUCOSE 318 MG/DL (70-104); PHOSPHORUS 4.2 MG/DL (2.3-4.5); POTASSIUM 3.6 MMOL/L (3.5-5.1); SODIUM 135 MMOL/L (135-145); TOTAL CARBON DIOXIDE 16.8 MMOL/L (24-32); eGFR 14 ML/MIN
== END 2019-12-13 23:59 | disposition home or self-care (01) ==
LOC: LAB 10:25
PROVIDERS: ATTEND Internal Medicine Critical Care Medicine
DX: N18.3 Chronic kidney disease, stage 3 (moderate) (principal); D63.1 Anemia in chronic kidney disease; N39.0 Urinary tract infection, site not specified; Z94.0 Kidney transplant status; E11.9 Type 2 diabetes mellitus without complications
CPT/HCPCS: 36415; 80069; 80197; 82542; 85025

== ENCOUNTER 2020-01-02 09:55 | Outpatient (CLI) | payer MEDICARE, MEDICAID ==
[~2020-01-02 09:55] MED LIST changes: -TACR1CAP24 PO; +TACR1CAP28 PO
[2020-01-02 10:59] LABS: BASOPHILS # (AUTO) 0.1 X10'3 (0-0.2); BASOPHILS % (AUTO) 0.8 % (0-1); EOSINOPHILS # (AUTO) 0.4 X10'3 (0-0.9); EOSINOPHILS % (AUTO) 4.9 % (0-6); HEMOGLOBIN 10.6 g/dl (12.0-16.0); LYMPHOCYTES # (AUTO) 0.7 X10'3 (1.1-4.8); LYMPHOCYTES % (AUTO) 10.1 % (21-51); MEAN CORPUSCULAR HEMOGLOBIN 26.9 PG (27.0-31.0); MEAN CORPUSCULAR HGB CONC 32.3 g/dL (33.0-36.5); MEAN CORPUSCULAR VOLUME 83.3 FL (78-98); MEAN PLATELET VOLUME 9.1 FL (7.4-10.4); MONOCYTES # (AUTO) 0.4 X10'3 (0-0.9); MONOCYTES % (AUTO) 5.6 % (2-12); NEUTROPHILS # (AUTO) 5.7 X10'3 (1.8-7.7); NEUTROPHILS % (AUTO) 78.6 % (42-75); PLATELET COUNT 279 X10'3 (140-440); RED BLOOD COUNT 3.96 X10'6 (4.20-5.60); RED CELL DISTRIBUTION WIDTH 15.2 % (11.5-14.5); WHITE BLOOD COUNT 7.2 X10'3 (4.5-11.0)
[2020-01-03 07:09] LABS: VITAMIN D, 25-HYDROXY 10.6 ng/mL (30.0-100.0)
== END 2020-01-02 23:59 | disposition home or self-care (01) ==
LOC: LAB 09:55
PROVIDERS: ATTEND Internal Medicine Critical Care Medicine
DX: E11.22 Type 2 diabetes mellitus with diabetic chronic kidney disease (principal); N18.3 Chronic kidney disease, stage 3 (moderate); D63.1 Anemia in chronic kidney disease; E55.9 Vitamin D deficiency, unspecified; N39.0 Urinary tract infection, site not specified; R80.9 Proteinuria, unspecified; Z94.0 Kidney transplant status
CPT/HCPCS: 36415; 80197; 82306; 85025

== ENCOUNTER 2020-05-30 13:26 | Emergency (ER) | payer MEDICARE, MEDICAID ==
[~2020-05-30] VITALS: Ht 160 cm; Wt 81.8 kg
[~2020-05-30 13:26] MED LIST changes: +TACR1CAP24 PO; -TACR1CAP28 PO
--- NOTE | 2020-05-30 15:14 | NUR ---
Pt given a urine cup and ambulated to the restroom without difficulty.
[2020-05-30 15:41] LABS: URINE HCG NEGATIVE (NEG)
[2020-05-30 15:43] LABS: CLARITY,URINE CLOUDY (Clear); COLOR,URINE YELLOW (Yellow); GLUCOSE, URINE 500 mg/dl (Neg); KETONES,URINE NEGATIVE (Neg); LEUKOCYTE ESTERASE ,URINE NEGATIVE (Neg); NITRITES, URINE NEGATIVE (Neg); OCCULT BLOOD,URINE SMALL (Neg); PROTEIN,URINE 100 mg/dl (Neg); UROBILINOGEN,URINE 0.2 E.U/dL (0.2-1.0)
[2020-05-30 15:47] LABS: UA COLLECTION TYPE CLN CATCH MIDSTREAM
[2020-05-30 15:49] LABS: BACTERIA,URINE 4+ /HPF (Neg); MUCUS STRANDS FEW /LPF (Neg); SQUAMOUS EPITHELIAL CELL,UR FEW /LPF (FEW)
[2020-05-30 15:50] LABS: RBC,URINE 0-2 /HPF (0-2); WBC CLUMPS,URINE FEW /HPF (NEGATIVE)
[2020-05-30 15:51] LABS: COARSE GRANULAR CAST 0-3 /LPF (NEGATIVE)
[2020-05-30 15:55] LABS: BASOPHILS # (AUTO) 0.1 X10'3 (0-0.2); BASOPHILS % (AUTO) 0.6 % (0-1); EOSINOPHILS # (AUTO) 0.2 X10'3 (0-0.9); EOSINOPHILS % (AUTO) 1.4 % (0-6); HEMATOCRIT 30.1 % (35.0-45.0); HEMOGLOBIN 9.5 g/dl (12.0-16.0); LYMPHOCYTES # (AUTO) 0.5 X10'3 (1.1-4.8); LYMPHOCYTES % (AUTO) 3.1 % (21-51); MEAN CORPUSCULAR HEMOGLOBIN 27.3 PG (27.0-31.0); MEAN CORPUSCULAR HGB CONC 31.6 g/dL (33.0-36.5); MEAN CORPUSCULAR VOLUME 86.3 FL (78-98); MEAN PLATELET VOLUME 9.6 FL (7.4-10.4); MONOCYTES # (AUTO) 0.9 X10'3 (0-0.9); NEUTROPHILS # (AUTO) 15.5 X10'3 (1.8-7.7); NEUTROPHILS % (AUTO) 89.9 % (42-75); PLATELET COUNT 249 X10'3 (140-440); RED BLOOD COUNT 3.49 X10'6 (4.20-5.60); RED CELL DISTRIBUTION WIDTH 15.2 % (11.5-14.5); WHITE BLOOD COUNT 17.3 X10'3 (4.5-11.0)
[2020-05-30 16:09] LABS: ALANINE AMINOTRANSFERASE 6 U/L (12-78); ALBUMIN 3.8 G/DL (3.4-5.0); ALBUMIN/GLOBULIN RATIO 0.9 (1.1-1.5); ALKALINE PHOSPHATASE 77 IU/L (46-116); ANION GAP 16 (8-16); ASPARTATE AMINO TRANSFERASE 7 U/L (10-37); BILIRUBIN,TOTAL 0.4 MG/DL (0.1-1.0); BLOOD UREA NITROGEN 39 MG/DL (7-18); BUN/CREATININE RATIO 8.7 (6.6-38.0); CALCIUM 9.3 MG/DL (8.5-10.1); CHLORIDE 97 MMOL/L (99-107); CREATININE 4.47 MG/DL (0.40-0.90); GLUCOSE 361 MG/DL (70-104); LIPASE 196 U/L (73-393); POTASSIUM 3.6 MMOL/L (3.5-5.1); SODIUM 129 MMOL/L (135-145); TOTAL CARBON DIOXIDE 15.8 MMOL/L (24-32); TOTAL PROTEIN 8.2 G/DL (6.4-8.2); eGFR 10 ML/MIN
[2020-05-30] MEDS ORDERED: ondansetron/PF 4mg/2ml inj IV ONE (16:15)
[2020-05-30] MEDS ORDERED: normal saline 1000ML IV soln IVB ONE (16:15)
[2020-05-30] MEDS ORDERED: insulin regular, human 10 units/0.1 ml syringe SQ ONE (17:00)
[2020-05-30] MEDS ORDERED: BENZ-16 PO (17:10)
[2020-05-30] MEDS ORDERED: CEPH500C5 PO (17:25)
[2020-05-30 17:42] VITALS: BP 110/61
[2020-06-04] MEDS ORDERED: LEVO500T2 PO (09:41)
[2020-06-04] MEDS ORDERED: SODI325T PO (09:41)
[2020-06-05] MEDS ORDERED: LEVO500T89 PO (11:04)
== END 2020-05-30 17:41 | disposition home or self-care (01) ==
LOC: ER 13:27
DX: R11.2 Nausea with vomiting, unspecified (principal); G43.909 Migraine, unspecified, not intractable, without status migrainosus; E78.00 Pure hypercholesterolemia, unspecified; I10 Essential (primary) hypertension; K21.9 Gastro-esophageal reflux disease without esophagitis; E11.9 Type 2 diabetes mellitus without complications; Z90.49 Acquired absence of other specified parts of digestive tract; Z98.890 Other specified postprocedural states; Z79.82 Long term (current) use of aspirin; Z79.4 Long term (current) use of insulin; Z79.899 Other long term (current) drug therapy
CPT/HCPCS: 36415; 71045; 80053; 81001; 81025; 82948; 83605; 83690; 84145; 85025; 87040; 87077; 87088; 87186; 96374; 99285; J1815; J2405; J7030; 96372; 99284

== ENCOUNTER 2020-06-06 09:15 | Outpatient (CLI) | payer MEDICARE, MEDICAID ==
[~2020-06-06 09:15] MED LIST changes: -CEPH500C5 PO; +LEVO500T2 PO; +LEVO500T89 PO; -METO-395 PO; -POTA10CA44 PO; -PRAV10TA39 PO; -PRE5T PO; +SODI325T PO
[2020-06-06 10:33] LABS: HEMOGLOBIN 9.4 g/dl (12.0-16.0); MEAN CORPUSCULAR HEMOGLOBIN 27.6 PG (27.0-31.0)
[2020-06-06 10:37] LABS: BASOPHILS # (AUTO) 0.1 X10'3 (0-0.2); EOSINOPHILS # (AUTO) 0.5 X10'3 (0-0.9); EOSINOPHILS % (AUTO) 7.3 % (0-6); HEMATOCRIT 28.9 % (35.0-45.0); LYMPHOCYTES # (AUTO) 0.7 X10'3 (1.1-4.8); LYMPHOCYTES % (AUTO) 10.2 % (21-51); MEAN CORPUSCULAR HGB CONC 32.3 g/dL (33.0-36.5); MEAN CORPUSCULAR VOLUME 85.5 FL (78-98); MEAN PLATELET VOLUME 8.8 FL (7.4-10.4); MONOCYTES # (AUTO) 0.3 X10'3 (0-0.9); MONOCYTES % (AUTO) 4.1 % (2-12); NEUTROPHILS # (AUTO) 5.6 X10'3 (1.8-7.7); NEUTROPHILS % (AUTO) 77.4 % (42-75); PLATELET COUNT 307 X10'3 (140-440); RED BLOOD COUNT 3.39 X10'6 (4.20-5.60); RED CELL DISTRIBUTION WIDTH 14.5 % (11.5-14.5); WHITE BLOOD COUNT 7.3 X10'3 (4.5-11.0)
[2020-06-06 10:47] LABS: ALBUMIN 3.2 G/DL (3.4-5.0); ANION GAP 12 (8-16); BLOOD UREA NITROGEN 21 MG/DL (7-18); BUN/CREATININE RATIO 5.8 (6.6-38.0); CALCIUM 9.4 MG/DL (8.5-10.1); CHLORIDE 105 MMOL/L (99-107); CREATININE 3.62 MG/DL (0.40-0.90); GLUCOSE 183 MG/DL (70-104); PHOSPHORUS 3.9 MG/DL (2.3-4.5); POTASSIUM 3.5 MMOL/L (3.5-5.1); SODIUM 140 MMOL/L (135-145); TOTAL CARBON DIOXIDE 23.1 MMOL/L (24-32); eGFR 13 ML/MIN
[2020-06-06 11:02] LABS: TOTAL PROTEIN,URINE RANDOM 91.3 MG/DL; UA PROTEIN/CREATININE RATIO 1.04 mg/mg Cr (0-0.16)
[2020-06-07 14:21] LABS: MICROALB/CRT, RATIO 76 mg/g creat (0-29)
== END 2020-06-06 23:59 | disposition home or self-care (01) ==
LOC: LAB 09:15
PROVIDERS: ATTEND Internal Medicine Critical Care Medicine
DX: E11.22 Type 2 diabetes mellitus with diabetic chronic kidney disease (principal); N18.3 Chronic kidney disease, stage 3 (moderate); D63.1 Anemia in chronic kidney disease; E55.9 Vitamin D deficiency, unspecified; R94.4 Abnormal results of kidney function studies; R80.9 Proteinuria, unspecified; R82.79 Other abnormal findings on microbiological examination of urine; Z94.0 Kidney transplant status
CPT/HCPCS: 36415; 80069; 80197; 82043; 82306; 82570; 83970; 84156; 85025

== ENCOUNTER 2020-09-29 13:09 | Emergency (ER) | payer MEDICARE, MEDICAID ==
[~2020-09-29] VITALS: Ht 162.6 cm; Wt 90.0 kg
[~2020-09-29 13:09] MED LIST changes: -LEVO500T2 PO; -LEVO500T89 PO
[2020-09-29 15:01] LABS: BASOPHILS % (AUTO) 0.3 % (0-1); EOSINOPHILS # (AUTO) 0.1 X10'3 (0-0.9); EOSINOPHILS % (AUTO) 0.7 % (0-6); HEMATOCRIT 28.5 % (35.0-45.0); HEMOGLOBIN 9.4 g/dl (12.0-16.0); LYMPHOCYTES # (AUTO) 0.5 X10'3 (1.1-4.8); LYMPHOCYTES % (AUTO) 6.3 % (21-51); MEAN CORPUSCULAR HEMOGLOBIN 27.3 PG (27.0-31.0); MEAN CORPUSCULAR HGB CONC 33.2 g/dL (33.0-36.5); MEAN CORPUSCULAR VOLUME 82.2 FL (78-98); MEAN PLATELET VOLUME 8.4 FL (7.4-10.4); MONOCYTES # (AUTO) 0.4 X10'3 (0-0.9); MONOCYTES % (AUTO) 5.2 % (2-12); NEUTROPHILS # (AUTO) 6.8 X10'3 (1.8-7.7); NEUTROPHILS % (AUTO) 87.5 % (42-75); PLATELET COUNT 374 X10'3 (140-440); RED BLOOD COUNT 3.46 X10'6 (4.20-5.60); RED CELL DISTRIBUTION WIDTH 14.9 % (11.5-14.5); WHITE BLOOD COUNT 7.8 X10'3 (4.5-11.0)
[2020-09-29 15:09] LABS: ALANINE AMINOTRANSFERASE 18 U/L (12-78); ALBUMIN 3.9 G/DL (3.4-5.0); ALBUMIN/GLOBULIN RATIO 0.7 (1.1-1.5); ALKALINE PHOSPHATASE 91 IU/L (46-116); ANION GAP 20 (8-16); ASPARTATE AMINO TRANSFERASE 22 U/L (10-37); BILIRUBIN,TOTAL 0.3 MG/DL (0.1-1.0); BLOOD UREA NITROGEN 67 MG/DL (7-18); BUN/CREATININE RATIO 12.3 (6.6-38.0); CALCIUM 10.1 MG/DL (8.5-10.1); CHLORIDE 98 MMOL/L (99-107); CREATININE 5.45 MG/DL (0.40-0.90); GLUCOSE 308 MG/DL (70-104); LIPASE 603 U/L (73-393); POTASSIUM 3.7 MMOL/L (3.5-5.1); SODIUM 133 MMOL/L (135-145); TOTAL CARBON DIOXIDE 15.3 MMOL/L (24-32); TOTAL PROTEIN 9.5 G/DL (6.4-8.2); eGFR 8 ML/MIN
[2020-09-29] MEDS ORDERED: ondansetron/PF 4mg/2ml inj IV ONE (15:25)
[2020-09-29] MEDS ORDERED: normal saline 1000ML IV soln IVB ONE (15:25)
[2020-09-29 15:26] LABS: CLARITY,URINE CLOUDY (Clear); COLOR,URINE YELLOW (Yellow); GLUCOSE, URINE NEGATIVE (Neg); KETONES,URINE TRACE mg/dl (Neg); LEUKOCYTE ESTERASE ,URINE LARGE (Neg); NITRITES, URINE NEGATIVE (Neg); OCCULT BLOOD,URINE SMALL (Neg); PROTEIN,URINE 100 mg/dl (Neg); UA COLLECTION TYPE CLN CATCH MIDSTREAM; URINE HCG NEGATIVE (NEG); UROBILINOGEN,URINE 0.2 E.U/dL (0.2-1.0)
[2020-09-29 15:34] LABS: SQUAMOUS EPITHELIAL CELL,UR FEW /LPF (FEW)
[2020-09-29 15:37] LABS: BACTERIA,URINE 4+ /HPF (Neg); WBC CLUMPS,URINE MODERATE /HPF (NEGATIVE); WBC,URINE TNTC /HPF (0-4)
[2020-09-29 15:51] LABS: TROPONIN I < 0.04 NG/ML (0.0-0.05)
[2020-09-29] MEDS ORDERED: CEPH250T PO ×2 (16:17→16:29)
[2020-09-29] MEDS ORDERED: ONDA4TAB6 PO (16:30)
[2020-09-29 18:16] VITALS: BP 129/65
== END 2020-09-29 18:19 | disposition home or self-care (01) ==
LOC: ER 13:10
DX: R11.2 Nausea with vomiting, unspecified (principal); E13.22 Other specified diabetes mellitus with diabetic chronic kidney disease; I12.9 Hypertensive chronic kidney disease with stage 1 through stage 4 chronic kidney disease, or unspecified chronic kidney disease; N18.9 Chronic kidney disease, unspecified; G43.909 Migraine, unspecified, not intractable, without status migrainosus; E78.00 Pure hypercholesterolemia, unspecified; K21.9 Gastro-esophageal reflux disease without esophagitis; D64.9 Anemia, unspecified; Z79.899 Other long term (current) drug therapy; Z94.0 Kidney transplant status; Z79.4 Long term (current) use of insulin
CPT/HCPCS: 36415; 80053; 81001; 81025; 83690; 84484; 85025; 87077; 87088; 87186; 93005; 96361; 96374; 99284; J2405; J7030

== ENCOUNTER 2021-05-13 11:38 | Outpatient (CLI) | payer MEDICARE, MEDICAID ==
[~2021-05-13 11:38] MED LIST changes: +ACET-1025 PO; -ALBU6.7H9 INH; +ASCO-100 PO; -ASPI-1265 PO; +GABA300C PO; -MYCO250C46 PO; +MYCO500T5 PO; -SODI325T PO
[2021-05-13 13:21] LABS: BASOPHILS # (AUTO) 0.1 X10'3 (0-0.2); BASOPHILS % (AUTO) 0.5 % (0-1); EOSINOPHILS # (AUTO) 0.3 X10'3 (0-0.9); EOSINOPHILS % (AUTO) 2.4 % (0-6); HEMATOCRIT 31.9 % (35.0-45.0); LYMPHOCYTES # (AUTO) 1.6 X10'3 (1.1-4.8); LYMPHOCYTES % (AUTO) 12.2 % (21-51); MEAN CORPUSCULAR HGB CONC 31.5 g/dL (33.0-36.5); MEAN CORPUSCULAR VOLUME 85.8 FL (78-98); MEAN PLATELET VOLUME 9.5 FL (7.4-10.4); MONOCYTES # (AUTO) 0.7 X10'3 (0-0.9); MONOCYTES % (AUTO) 5.4 % (2-12); NEUTROPHILS # (AUTO) 10.1 X10'3 (1.8-7.7); NEUTROPHILS % (AUTO) 79.5 % (42-75); PLATELET COUNT 231 X10'3 (140-440); RED BLOOD COUNT 3.72 X10'6 (4.20-5.60); RED CELL DISTRIBUTION WIDTH 16.6 % (11.5-14.5); WHITE BLOOD COUNT 12.8 X10'3 (4.5-11.0)
[2021-05-13 13:38] LABS: ALBUMIN 4.4 G/DL (3.4-5.0); ANION GAP 18 (8-16); BLOOD UREA NITROGEN 31 MG/DL (7-18); BUN/CREATININE RATIO 6.2 (6.6-38.0); CALCIUM 9.1 MG/DL (8.5-10.1); CHLORIDE 106 MMOL/L (99-107); CREATININE 5.03 MG/DL (0.40-0.90); PHOSPHORUS 4.2 MG/DL (2.3-4.5); POTASSIUM 3.5 MMOL/L (3.5-5.1); SODIUM 137 MMOL/L (135-145); eGFR 9 ML/MIN
[2021-05-13 13:39] LABS: TOTAL PROTEIN,URINE RANDOM 105.7 MG/DL
[2021-05-13 13:41] LABS: GLUCOSE 224 MG/DL (70-104); UA PROTEIN/CREATININE RATIO 1.37 mg/mg Cr (0-0.16)
[2021-05-13 13:53] LABS: TOTAL CARBON DIOXIDE 12.8 MMOL/L (24-32)
== END 2021-05-13 23:59 | disposition home or self-care (01) ==
LOC: LAB 11:38
PROVIDERS: ATTEND Internal Medicine Critical Care Medicine
DX: N18.4 Chronic kidney disease, stage 4 (severe) (principal); R94.4 Abnormal results of kidney function studies; R80.9 Proteinuria, unspecified; E55.9 Vitamin D deficiency, unspecified; D63.1 Anemia in chronic kidney disease; Z94.0 Kidney transplant status
CPT/HCPCS: 36415; 80069; 82043; 82306; 82570; 83970; 84156; 85025

== ENCOUNTER 2021-05-28 12:57 | Inpatient (IN) | payer MEDICARE, MEDICAID ==
[~2021-05-28] VITALS: Ht 162.6 cm; Wt 76.8 kg
[2021-05-28 15:46] LABS: BASOPHILS # (AUTO) 0.1 X10'3 (0-0.2); BASOPHILS % (AUTO) 0.7 % (0-1); EOSINOPHILS # (AUTO) 0.2 X10'3 (0-0.9); EOSINOPHILS % (AUTO) 1.3 % (0-6); HEMATOCRIT 30.4 % (35.0-45.0); HEMOGLOBIN 9.6 g/dl (12.0-16.0); LYMPHOCYTES % (AUTO) 5.5 % (21-51); MEAN CORPUSCULAR HGB CONC 31.4 g/dL (33.0-36.5); MEAN PLATELET VOLUME 9.2 FL (7.4-10.4); MONOCYTES % (AUTO) 5.3 % (2-12); NEUTROPHILS # (AUTO) 15.7 X10'3 (1.8-7.7); NEUTROPHILS % (AUTO) 87.2 % (42-75); PLATELET COUNT 279 X10'3 (140-440); RED BLOOD COUNT 3.53 X10'6 (4.20-5.60); RED CELL DISTRIBUTION WIDTH 17.6 % (11.5-14.5)
[2021-05-28 16:10] LABS: ALBUMIN 4.4 G/DL (3.4-5.0); ALKALINE PHOSPHATASE 104 IU/L (46-116); ANION GAP 19 (8-16); ASPARTATE AMINO TRANSFERASE 2 U/L (10-37); BILIRUBIN,TOTAL 0.4 MG/DL (0.1-1.0); BLOOD UREA NITROGEN 41 MG/DL (7-18); CALCIUM 9.7 MG/DL (8.5-10.1); CHLORIDE 103 MMOL/L (99-107); CREATININE 5.89 MG/DL (0.40-0.90); GLUCOSE 289 MG/DL (70-104); LIPASE 75 U/L (73-393); MAGNESIUM 1.6 MG/DL (1.5-2.4); POTASSIUM 3.9 MMOL/L (3.5-5.1); SODIUM 134 MMOL/L (135-145); eGFR 8 ML/MIN
[2021-05-28 16:41] LABS: TOTAL CARBON DIOXIDE 12.5 MMOL/L (24-32)
[2021-05-28 16:47] LABS: ALANINE AMINOTRANSFERASE < 6 U/L (12-78)
[2021-05-28 18:53] LABS: ABG BASE EXCESS -13.3 mmol/L (-2.0-2.0); ABG HCO3 12.2 mmol/L (22.0-26.0); ABG OXYGEN SATURATION 93.9 % (94-97); ABG PCO2 (T) 27.3 mmHg (32.0-45.0); ABG PO2 (T) 69.9 mmHg (75.0-100.0); ALLEN'S TEST POSITIVE; FO2Hb 93.9 % (94-97); TOTAL HEMOGLOBIN 10.1 G/dl (12.0-16.0)
[2021-05-28] MEDS ORDERED: sodium bicarbonate (8.4%) inj. 150 ML in sodium chloride 0.45% 1,000 ML IV SCH (20:45)
[2021-05-28 20:54] LABS: CLARITY,URINE CLOUDY (Clear); COLOR,URINE YELLOW (Yellow); GLUCOSE, URINE 100 mg/dl (Neg); KETONES,URINE TRACE mg/dl (Neg); LEUKOCYTE ESTERASE ,URINE LARGE (Neg); NITRITES, URINE NEGATIVE (Neg); OCCULT BLOOD,URINE SMALL (Neg); PH,URINE 5.5 (4.8-8.0); PROTEIN,URINE 100 mg/dl (Neg); UROBILINOGEN,URINE 0.2 E.U/dL (0.2-1.0)
[2021-05-28] MEDS ORDERED: magnesium 2GM in 50ml NS 50 ML IV PRN (21:00)
[2021-05-28] MEDS ORDERED: dextrose 50%-water 50ml dispensing syringe IV PRN ×2 (21:00)
[2021-05-28] MEDS ORDERED: potassium Cl 40MEQ/1/2NS 520ml 520 ML IV PRN ×2 (21:00)
[2021-05-28] MEDS ORDERED: acetaminophen 325mg tablet PO PRN (21:00)
[2021-05-28] MEDS ORDERED: magnesium 4gm in 100ml NS 100 ML IV PRN (21:00)
[2021-05-28] MEDS ORDERED: ondansetron/PF 4mg/2ml inj IV PRN (21:00)
[2021-05-28] MEDS ORDERED: potassium Cl 20 mEq SR tablet PO PRN (21:00)
[2021-05-28] MEDS ORDERED: MESSAGE TO PHARMACY PO ONE (21:00)
[2021-05-28] MEDS ORDERED: dextrose ORAL solution 15 GM/59 ML bottle PO PRN ×2 (21:00)
[2021-05-28] MEDS ORDERED: glucagon, human recombinant 1mg kit SUBCUT PRN (21:00)
[2021-05-28 21:09] LABS: UA COLLECTION TYPE VOIDED
[2021-05-28 21:10] LABS: BACTERIA,URINE 4+ /HPF (Neg); SQUAMOUS EPITHELIAL CELL,UR MODERATE /LPF (FEW); WBC,URINE TNTC /HPF (0-4)
[2021-05-28] MEDS ORDERED: sodium bicarbonate (8.4%) inj. 100 MEQ in dextrose 5%-water 1,000 ML IV SCH (21:30)
[2021-05-28] MEDS: insulin glargine (Lantus) pen - multi-dose SQ SCH (21:32)
[2021-05-28] MEDS ORDERED: CefTRIAXone/D5W-Rocephin 1gm 50 ML IV ONE (22:05)
[2021-05-28 22:40] VITALS: BP 103/55
[2021-05-28 22:53] LABS: HEMOGLOBIN A1C 8.9 % (4.5-6.2)
[2021-05-29] MEDS: heparin, porcine 5000 units/ml vial SQ SCH ×4 (00:50→23:32)
[2021-05-29 03:00] VITALS: BP 93/41
[2021-05-29 06:00] VITALS: BP 92/39
[2021-05-29 06:34] LABS: BASOPHILS # (AUTO) 0.1 X10'3 (0-0.2); BASOPHILS % (AUTO) 0.5 % (0-1); EOSINOPHILS # (AUTO) 0.3 X10'3 (0-0.9); HEMATOCRIT 25.8 % (35.0-45.0); HEMOGLOBIN 8.3 g/dl (12.0-16.0); LYMPHOCYTES # (AUTO) 1.3 X10'3 (1.1-4.8); LYMPHOCYTES % (AUTO) 9.8 % (21-51); MEAN CORPUSCULAR HGB CONC 32.3 g/dL (33.0-36.5); MEAN CORPUSCULAR VOLUME 83.4 FL (78-98); MEAN PLATELET VOLUME 9.9 FL (7.4-10.4); MONOCYTES # (AUTO) 1.2 X10'3 (0-0.9); MONOCYTES % (AUTO) 8.7 % (2-12); NEUTROPHILS # (AUTO) 10.5 X10'3 (1.8-7.7); PLATELET COUNT 207 X10'3 (140-440); RED BLOOD COUNT 3.09 X10'6 (4.20-5.60); RED CELL DISTRIBUTION WIDTH 16.9 % (11.5-14.5); WHITE BLOOD COUNT 13.3 X10'3 (4.5-11.0)
--- NOTE | 2021-05-29 06:39 | NUR ---
Patient in room PCU 3009. I have received report from FRAN BYNUM, and had the opportunity to ask questions and assume patient care.
[2021-05-29 07:04] LABS: ALANINE AMINOTRANSFERASE 7 U/L (12-78); ALBUMIN 3.6 G/DL (3.4-5.0); ALBUMIN/GLOBULIN RATIO 0.9 (1.1-1.5); ALKALINE PHOSPHATASE 87 IU/L (46-116); ANION GAP 18 (8-16); ASPARTATE AMINO TRANSFERASE 4 U/L (10-37); BILIRUBIN,TOTAL 0.3 MG/DL (0.1-1.0); BLOOD UREA NITROGEN 44 MG/DL (7-18); BUN/CREATININE RATIO 7.2 (6.6-38.0); CALCIUM 8.3 MG/DL (8.5-10.1); CHLORIDE 103 MMOL/L (99-107); CHOL/HDL RATIO 3.3 (0.00-4.99); CHOLESTEROL 142 MG/DL (0-200); CREATININE 6.12 MG/DL (0.40-0.90); GLUCOSE 193 MG/DL (70-104); HDL CHOLESTEROL 43 MG/DL (35-60); LDL CHOLESTEROL 73 MG/DL (50-100); MAGNESIUM 1.3 MG/DL (1.5-2.4); SODIUM 138 MMOL/L (135-145); TOTAL PROTEIN 7.6 G/DL (6.4-8.2); TRIGLYCERIDES 133 MG/DL (20-135); eGFR 7 ML/MIN
--- NOTE | 2021-05-29 08:03 | NUR ---
PAGE SENT PAGER ID: [phone] MESSAGE: [id number], ANDI AGUILAR K- 3.0 THANK YOU, HILDA Walker 239
[2021-05-29] MEDS: K and/or MAG REPLACEMENT MC SCH ×2 (08:24→18:47)
[2021-05-29] MEDS: potassium Cl 20 mEq SR tablet PO PRN ×3 (08:28→18:48)
[2021-05-29] MEDS: sodium bicarbonate (8.4%) inj. 150 MEQ in dextrose 5%-water 1,000 ML IV SCH ×3 (09:44→19:47)
[2021-05-29 11:00] VITALS: BP 98/48
--- NOTE | 2021-05-29 11:10 | NUR ---
SENT PAGE PAGER ID: [phone] MESSAGE: [id number], FELICE ELKINS, DIETARY RECOMMENDS ADDING CARB CONTROL TO RENAL DIET. PLEASE ADVISE. THANK YOU. HILDA Walker [phone]
--- NOTE | 2021-05-29 11:37 | NUR ---
Diabetes Consult: Pt admitted w/ weakness and a plan to start PD soon per EMR. A1C 8.9 Pt stated she received written and verbal DM education when she was admitted 2 months ago and that she still has RD contact info. Pt denied written education at this time. Provided pt w/ brief summary of verbal DM education. Discussed w/ RN that renal diet is not indicated at this time given pt's labs K 3.4, Ca 8.3, Phos 4 and that Pt will be starting dialysis soon which will increase energy and protein needs. Recommended to d/c Renal diet and add [facility] diet if MD agreeable. Will continue to follow. Addendum: 05/29/21 at [address] Amended: Links added.
[2021-05-29 12:50] LABS: C DIFF ANTIGEN POSITIVE (NEGATIVE); C DIFF SPECIMEN=DIARRHEA? ACCEPTABLE; C DIFFICILE TOXINS A&B POSITIVE (Neg)
--- NOTE | 2021-05-29 12:53 | NUR ---
LAB RESULTS, PT C DIFF POSITIVE, NOTIFIED
--- NOTE | 2021-05-29 12:55 | NUR ---
PAGE SENT [employer] ID: [id number] MESSAGE: [phone], FELICE MCKENZIE, CDIFF POSITIVE. PT ALREADY IN OWN ROOM. THANK YOU, HILDA [id number]
[2021-05-29] MEDS: insulin Lispro (HumaLOG) vial - multi-dose SQ SCH ×2 (14:56→19:49)
[2021-05-29 15:00] VITALS: BP 90/46
[2021-05-29] MEDS: mycophenolate mofetil 250mg capsule PO SCH (16:58)
--- NOTE | 2021-05-29 17:29 | NUR ---
PAGE SENT PAGER ID: [phone] MESSAGE: [id number], FELICE MCKENZIE, PT'S 1500 VS, BP - 90/46, HR - 68. THANK YOU, HILDA Walker 2013
[2021-05-29 18:00] VITALS: BP 97/48
--- NOTE | 2021-05-29 18:40 | NUR ---
Patient in room PCU 3009. I have received report from Arabella PETERS and had the opportunity to ask questions and assume patient care.
--- NOTE | 2021-05-29 18:52 | NUR ---
Problems reprioritized. Patient report given, questions answered & plan of care reviewed with FRAN PERDOMO.
[2021-05-29] MEDS ORDERED: MYCOPHENOLATE MOFETIL PO SCH (20:00)
[2021-05-29] MEDS ORDERED: gabapentin 300mg capsule PO SCH (21:00)
[2021-05-29 22:00] VITALS: BP 98/54
[2021-05-29] MEDS: insulin glargine (Lantus) pen - multi-dose SQ SCH (22:35)
[2021-05-30 02:00] VITALS: BP 98/56
[2021-05-30 06:00] VITALS: BP 124/74
--- NOTE | 2021-05-30 06:09 | NUR ---
Problems reprioritized. Patient report given, questions answered & plan of care reviewed with Tim PETERS.
[2021-05-30] MEDS: mycophenolate mofetil 250mg capsule PO SCH ×2 (07:37→16:56)
[2021-05-30] MEDS: heparin, porcine 5000 units/ml vial SQ SCH ×3 (07:37→23:56)
[2021-05-30] MEDS: tacrolimus anhydrous 1mg capsule PO SCH (07:38)
[2021-05-30 07:55] LABS: BASOPHILS % (AUTO) 0.3 % (0-1); EOSINOPHILS # (AUTO) 0.4 X10'3 (0-0.9); EOSINOPHILS % (AUTO) 2.9 % (0-6); HEMATOCRIT 24.1 % (35.0-45.0); HEMOGLOBIN 7.7 g/dl (12.0-16.0); LYMPHOCYTES % (AUTO) 7.3 % (21-51); MEAN CORPUSCULAR HEMOGLOBIN 26.8 PG (27.0-31.0); MEAN CORPUSCULAR HGB CONC 31.9 g/dL (33.0-36.5); MEAN PLATELET VOLUME 9.6 FL (7.4-10.4); MONOCYTES % (AUTO) 7.6 % (2-12); NEUTROPHILS # (AUTO) 10.7 X10'3 (1.8-7.7); NEUTROPHILS % (AUTO) 81.9 % (42-75); PLATELET COUNT 216 X10'3 (140-440); RED BLOOD COUNT 2.87 X10'6 (4.20-5.60); RED CELL DISTRIBUTION WIDTH 16.8 % (11.5-14.5); WHITE BLOOD COUNT 13.1 X10'3 (4.5-11.0)
[2021-05-30] MEDS: K and/or MAG REPLACEMENT MC SCH ×2 (08:00→20:00)
[2021-05-30] MEDS ORDERED: gabapentin 300mg capsule PO SCH (08:00)
--- NOTE | 2021-05-30 08:00 | NUR ---
L arm fistula positive bruit and thrill, abd puncture RLQ cdi.
[2021-05-30 08:23] LABS: ALANINE AMINOTRANSFERASE < 6 U/L (12-78); ALBUMIN 3.1 G/DL (3.4-5.0); ALBUMIN/GLOBULIN RATIO 0.8 (1.1-1.5); ALKALINE PHOSPHATASE 82 IU/L (46-116); ANION GAP 13 (8-16); ASPARTATE AMINO TRANSFERASE 4 U/L (10-37); BILIRUBIN,TOTAL 0.3 MG/DL (0.1-1.0); BLOOD UREA NITROGEN 36 MG/DL (7-18); BUN/CREATININE RATIO 7.4 (6.6-38.0); CHLORIDE 101 MMOL/L (99-107); CREATININE 4.87 MG/DL (0.40-0.90); GLUCOSE 242 MG/DL (70-104); POTASSIUM 3.4 MMOL/L (3.5-5.1); SODIUM 136 MMOL/L (135-145); TOTAL CARBON DIOXIDE 22.2 MMOL/L (24-32); TOTAL PROTEIN 6.8 G/DL (6.4-8.2); eGFR 9 ML/MIN
[2021-05-30] MEDS: insulin Lispro (HumaLOG) vial - multi-dose SQ SCH ×2 (09:28→14:41)
--- NOTE | 2021-05-30 10:26 | NUR ---
AGER ID: [phone] MESSAGE: [phone] Lakeisha Navarrete- BG 200's. Would you like to add Carb Control to the renal diet? Tim PETERS [phone]
[2021-05-30 11:00] VITALS: BP 133/72
--- NOTE | 2021-05-30 12:20 | NUR ---
Spoke to MD Rosas when he rounded on pt. Discussed K and mag as well as Replacements last noc. ordered to admin 20meq 1x kcl now.
[2021-05-30] MEDS: sodium bicarbonate (8.4%) inj. 150 MEQ in dextrose 5%-water 1,000 ML IV SCH ×2 (12:36→22:01)
[2021-05-30] MEDS: vancomycin 125mg/5ml ORAL solution 5ml UD bottle PO SCH ×3 (14:35→21:13)
[2021-05-30 15:00] VITALS: BP 106/45
--- NOTE | 2021-05-30 17:14 | NUR ---
IV access failed, stinging per pt and not flushing, iv removed, cath intact. 1 attempt at restart not asuccessfull, will have another nurse look next. only one arm to access
--- NOTE | 2021-05-30 18:36 | NUR ---
Problems reprioritized. Patient report given, questions answered & plan of care reviewed with Pat RN.
[2021-05-30 19:00] VITALS: BP 98/48
--- NOTE | 2021-05-30 20:00 | NUR ---
no additional potassium doses to be given as per FRAN Dumont who discussed lab with Dr Rosas
[2021-05-30] MEDS: insulin glargine (Lantus) pen - multi-dose SQ SCH (21:41)
--- NOTE | 2021-05-30 22:00 | NUR ---
x3 attempts to place PIV; pt reports Dr Rosas told her she was to go home tomorrow; pt refuses further attempts to place PIV
[2021-05-31] VITALS: BP 101/62
[2021-05-31 03:15] VITALS: BP 107/55
[2021-05-31] MEDS: vancomycin 125mg/5ml ORAL solution 5ml UD bottle PO SCH ×2 (03:15→07:44)
[2021-05-31 06:00] VITALS: BP 95/46
--- NOTE | 2021-05-31 06:00 | NUR ---
Patient in room PCU 3009. I have received report from norma rn and had the opportunity to ask questions and assume patient care.
[2021-05-31 06:53] LABS: ALBUMIN 3.1 G/DL (3.4-5.0); ALBUMIN/GLOBULIN RATIO 0.8 (1.1-1.5); ALKALINE PHOSPHATASE 94 IU/L (46-116); ANION GAP 14 (8-16); ASPARTATE AMINO TRANSFERASE 8 U/L (10-37); BILIRUBIN,TOTAL 0.3 MG/DL (0.1-1.0); BLOOD UREA NITROGEN 34 MG/DL (7-18); BUN/CREATININE RATIO 7.8 (6.6-38.0); CALCIUM 8.1 MG/DL (8.5-10.1); CHLORIDE 102 MMOL/L (99-107); CREATININE 4.37 MG/DL (0.40-0.90); GLUCOSE 158 MG/DL (70-104); MAGNESIUM 2.8 MG/DL (1.5-2.4); SODIUM 136 MMOL/L (135-145); TOTAL CARBON DIOXIDE 19.8 MMOL/L (24-32); eGFR 11 ML/MIN
[2021-05-31 06:54] LABS: BASOPHILS % (AUTO) 0.2 % (0-1); EOSINOPHILS # (AUTO) 0.5 X10'3 (0-0.9); EOSINOPHILS % (AUTO) 4.9 % (0-6); HEMOGLOBIN 7.8 g/dl (12.0-16.0); LYMPHOCYTES # (AUTO) 1.2 X10'3 (1.1-4.8); LYMPHOCYTES % (AUTO) 11.7 % (21-51); MEAN CORPUSCULAR HEMOGLOBIN 27.4 PG (27.0-31.0); MEAN CORPUSCULAR HGB CONC 32.6 g/dL (33.0-36.5); MEAN CORPUSCULAR VOLUME 84.1 FL (78-98); MEAN PLATELET VOLUME 9.4 FL (7.4-10.4); MONOCYTES # (AUTO) 0.7 X10'3 (0-0.9); MONOCYTES % (AUTO) 6.7 % (2-12); NEUTROPHILS # (AUTO) 7.9 X10'3 (1.8-7.7); NEUTROPHILS % (AUTO) 76.5 % (42-75); PLATELET COUNT 219 X10'3 (140-440); RED BLOOD COUNT 2.85 X10'6 (4.20-5.60); WHITE BLOOD COUNT 10.3 X10'3 (4.5-11.0)
--- NOTE | 2021-05-31 07:00 | NUR ---
0700 positive bruit and thrill to L arm fistula. deny sob or pain
[2021-05-31 07:03] LABS: ALANINE AMINOTRANSFERASE < 6 U/L (12-78); POTASSIUM 3.5 MMOL/L (3.5-5.1)
[2021-05-31] MEDS: tacrolimus anhydrous 1mg capsule PO SCH (07:43)
[2021-05-31] MEDS: mycophenolate mofetil 250mg capsule PO SCH (07:43)
[2021-05-31] MEDS: heparin, porcine 5000 units/ml vial SQ SCH (07:44)
[2021-05-31] MEDS: insulin Lispro (HumaLOG) vial - multi-dose SQ SCH (09:44)
[2021-05-31] MEDS ORDERED: VANC5VIA PO (10:57)
--- NOTE | 2021-05-31 10:57 | NUR ---
MESSAGE: [phone] Lakeisha Navarrete: pt has no IV, refusing after several failed attempts last night because she believes she may discharge today. Is she staying? ZENARChai [phone]
[2021-05-31 11:00] VITALS: BP 103/61
[2021-05-31] MEDS ORDERED: CIPR-202 PO ×3 (11:02→11:09)
--- NOTE | 2021-05-31 12:00 | NUR ---
Disch to home. Pt has no IV. Deny SOB, refuse BG check said she would check at home. daughter present at bedside driving her home. reviewed all disch papers and instructions with pt. she will f/u with her primary next week after getting her CBC. dressed self I and amb to w/c without difficulty. Aid assist via w/c to her car.
[2021-05-31] MEDS ORDERED: gabapentin 100mg capsule PO SCH (21:00)
[2021-06-03 05:37] LABS: HBSAG SCREEN Negative (Negative); HEP B CORE AB, TOT Negative (Negative)
== END 2021-05-31 12:00 | disposition home or self-care (01) | DRG 699 ==
LOC: ER 12:57 → ED HOLD 21:05 → PCU 3S 22:40
PROVIDERS: ADMIT Family Medicine; ATTEND Family Medicine
DX: T86.19 Other complication of kidney transplant (principal); A04.72 Enterocolitis due to Clostridium difficile, not specified as recurrent; N39.0 Urinary tract infection, site not specified; E87.2 Acidosis; I12.0 Hypertensive chronic kidney disease with stage 5 chronic kidney disease or end stage renal disease; N17.9 Acute kidney failure, unspecified; N18.4 Chronic kidney disease, stage 4 (severe); B96.89 Other specified bacterial agents as the cause of diseases classified elsewhere; D63.8 Anemia in other chronic diseases classified elsewhere; E78.00 Pure hypercholesterolemia, unspecified; G43.909 Migraine, unspecified, not intractable, without status migrainosus; K21.9 Gastro-esophageal reflux disease without esophagitis; E78.5 Hyperlipidemia, unspecified; E86.0 Dehydration; E87.6 Hypokalemia; Y83.0 Surgical operation with transplant of whole organ as the cause of abnormal reaction of the patient, or of later complication, without mention of misadventure at the time of the procedure; Z78.9 Other specified health status; Z79.4 Long term (current) use of insulin; Z79.899 Other long term (current) drug therapy; Z82.49 Family history of ischemic heart disease and other diseases of the circulatory system; Z83.3 Family history of diabetes mellitus; Z90.49 Acquired absence of other specified parts of digestive tract; Z90.710 Acquired absence of both cervix and uterus; Z94.0 Kidney transplant status
CPT/HCPCS: 36415; 36600; 71045; 80053; 80061; 81001; 82803; 82948; 83036; 83690; 83735; 83880; 84100; 84484; 85018; 85025; 86704; 86706; 87045; 87046; 87077; 87081; 87088; 87186; 87324; 87340; 87449; 89055; 93005; 97161; 97530; 99285; G0378; J0696; J1644; J1815; J3475; J7517

== ENCOUNTER 2021-07-23 01:55 | Inpatient (IN) | payer MEDICARE, MEDICAID ==
--- NOTE | 2020-07-27 18:15 | NUR ---
Upon Change of shift during rounds RN notified that patient did not have IV access and MD aware that all meds are PO
[~2021-07-23] VITALS: Ht 160 cm; Wt 72.7 kg
[~2021-07-23 01:55] MED LIST changes: +CIPR-202 PO; +VANC5VIA PO
[2021-07-23 03:34] LABS: BASOPHILS # (AUTO) 0.1 X10'3 (0-0.2); BASOPHILS % (AUTO) 0.3 % (0-1); EOSINOPHILS % (AUTO) 0.3 % (0-6); HEMATOCRIT 22.9 % (35.0-45.0); HEMOGLOBIN 7.4 g/dl (12.0-16.0); LYMPHOCYTES # (AUTO) 0.8 X10'3 (1.1-4.8); LYMPHOCYTES % (AUTO) 4.5 % (21-51); MEAN CORPUSCULAR HEMOGLOBIN 28.1 PG (27.0-31.0); MEAN CORPUSCULAR HGB CONC 32.6 g/dL (33.0-36.5); MEAN CORPUSCULAR VOLUME 86.2 FL (78-98); MEAN PLATELET VOLUME 8.5 FL (7.4-10.4); MONOCYTES # (AUTO) 1.2 X10'3 (0-0.9); MONOCYTES % (AUTO) 6.5 % (2-12); NEUTROPHILS # (AUTO) 16.6 X10'3 (1.8-7.7); NEUTROPHILS % (AUTO) 88.4 % (42-75); PLATELET COUNT 265 X10'3 (140-440); RED BLOOD COUNT 2.65 X10'6 (4.20-5.60); RED CELL DISTRIBUTION WIDTH 16.6 % (11.5-14.5); WHITE BLOOD COUNT 18.8 X10'3 (4.5-11.0)
[2021-07-23 03:47] LABS: ALANINE AMINOTRANSFERASE 9 U/L (12-78); ALBUMIN 3.3 G/DL (3.4-5.0); ALBUMIN/GLOBULIN RATIO 0.7 (1.1-1.5); ALKALINE PHOSPHATASE 99 IU/L (46-116); ANION GAP 21 (8-16); ASPARTATE AMINO TRANSFERASE 3 U/L (10-37); BILIRUBIN,TOTAL 0.4 MG/DL (0.1-1.0); BLOOD UREA NITROGEN 73 MG/DL (7-18); BUN/CREATININE RATIO 9.2 (6.6-38.0); CALCIUM 8.5 MG/DL (8.5-10.1); CHLORIDE 98 MMOL/L (99-107); CREATININE 7.95 MG/DL (0.40-0.90); GLUCOSE 351 MG/DL (70-104); SODIUM 128 MMOL/L (135-145); TOTAL PROTEIN 7.9 G/DL (6.4-8.2); eGFR 5 ML/MIN
[2021-07-23 03:52] LABS: POTASSIUM 2.9 MMOL/L (3.5-5.1); TOTAL CARBON DIOXIDE 9.5 MMOL/L (24-32)
[2021-07-23] MEDS ORDERED: magnesium oxide 400mg tablet PO ONE (04:15)
[2021-07-23] MEDS ORDERED: potassium Cl 20 mEq SR tablet PO ONE (04:15)
[2021-07-23 05:33] LABS: ABG BASE EXCESS -19.6 mmol/L (-2.0-2.0); ABG HCO3 6.3 mmol/L (22.0-26.0); ABG OXYGEN SATURATION 96.1 % (94-97); ABG PO2 (T) 89.1 mmHg (75.0-100.0); FCOHb 0.2 % (0.0-3.9); FMetHb 0.3 % (0.0-1.5); FO2Hb 95.6 % (94-97); TOTAL HEMOGLOBIN 8.1 G/dl (12.0-16.0)
[2021-07-23] MEDS: normal saline 1000ml 1,000 ML IV SCH ×8 (05:35→22:42)
[2021-07-23] MEDS ORDERED: insulin regular, human U-100 3ml vial - multi-dose IV PRN (05:35)
[2021-07-23 05:56] LABS: PHOSPHORUS 4.9 MG/DL (2.3-4.5)
[2021-07-23] MEDS: Insulin Reg/NS 100units/100mL 100 ML IV SCH (06:14)
[2021-07-23] MEDS: potassium CL 20mEq in D5-1/2NS 1,000 ML IV PRN (06:19)
[2021-07-23] MEDS ORDERED: potassium Cl 10 mEq/100mL bag IV ONE ×2 (06:20→07:20)
[2021-07-23] MEDS ORDERED: ondansetron/PF 4mg/2ml inj IV PRN (09:35)
[2021-07-23] MEDS ORDERED: mag hydrox/Alum hydrox/simeth 30ml oral suspension PO PRN (09:35)
[2021-07-23 09:53] LABS: CLARITY,URINE CLOUDY (Clear); COLOR,URINE YELLOW (Yellow); GLUCOSE, URINE NEGATIVE (Neg); KETONES,URINE TRACE mg/dl (Neg); LEUKOCYTE ESTERASE ,URINE MODERATE (Neg); NITRITES, URINE NEGATIVE (Neg); OCCULT BLOOD,URINE LARGE (Neg); PROTEIN,URINE 100 mg/dl (Neg); UA COLLECTION TYPE CLN CATCH MIDSTREAM; UROBILINOGEN,URINE 0.2 E.U/dL (0.2-1.0)
[2021-07-23 09:56] LABS: BACTERIA,URINE 4+ /HPF (Neg); SQUAMOUS EPITHELIAL CELL,UR MODERATE /LPF (FEW); WBC,URINE TNTC /HPF (0-4)
[2021-07-23 10:32] LABS: ANION GAP 24 (8-16); BLOOD UREA NITROGEN 71 MG/DL (7-18); BUN/CREATININE RATIO 9.5 (6.6-38.0); CALCIUM 7.9 MG/DL (8.5-10.1); CHLORIDE 102 MMOL/L (99-107); CREATININE 7.48 MG/DL (0.40-0.90); GLUCOSE 333 MG/DL (70-104); POTASSIUM 3.6 MMOL/L (3.5-5.1); SODIUM 133 MMOL/L (135-145); eGFR 6 ML/MIN
[2021-07-23 10:35] LABS: TOTAL CARBON DIOXIDE 6.6 MMOL/L (24-32)
[2021-07-23] MEDS: sodium bicarbonate (8.4%) inj. 150 MEQ in dextrose 5%-water 1,000 ML IV SCH ×2 (12:46→23:29)
[2021-07-23 15:41] LABS: ANION GAP 23 (8-16); BLOOD UREA NITROGEN 67 MG/DL (7-18); BUN/CREATININE RATIO 9.2 (6.6-38.0); CALCIUM 7.8 MG/DL (8.5-10.1); CHLORIDE 105 MMOL/L (99-107); GLUCOSE 231 MG/DL (70-104); POTASSIUM 3.3 MMOL/L (3.5-5.1); SODIUM 136 MMOL/L (135-145); eGFR 6 ML/MIN
[2021-07-23 15:47] LABS: TOTAL CARBON DIOXIDE 8.5 MMOL/L (24-32)
[2021-07-23] MEDS: tacrolimus anhydrous 1mg capsule PO SCH (15:51)
[2021-07-23] MEDS: CefTRIAXone/D5W-Rocephin 1gm 50 ML IV SCH (16:28)
[2021-07-23 19:34] VITALS: BP 126/49
[2021-07-23] MEDS: heparin, porcine 5000 units/ml vial SQ SCH (20:25)
[2021-07-23] MEDS: gabapentin 100mg capsule PO SCH (20:25)
[2021-07-23] MEDS: docusate sod 100mg capsule PO SCH (20:26)
[2021-07-23] MEDS: mycophenolate mofetil 250mg capsule PO SCH (21:07)
--- NOTE | 2021-07-23 22:33 | NUR ---
Patient hourly BS has been 209,249, 231 respectively. insulin gtts was at 3.2units/hr. Per order insulin gtts runs at 5.0 units/hr. insulin gtts changed to 5.0units and is currently running at 5.0units/hr as ordered by . Charge nurse made aware. Next BS is scheduled for 2240.
--- NOTE | 2021-07-23 22:42 | NUR ---
Patient NS infusion started at 2242. Patient is hard stick. Several nurse and I unsuccessfully attempted IV insertion. RF 22 G IV successfully inserted by ELECTRIC FRYING PAN REPAIRER. NS started at 100ML/HR. Will continue monitor patient
--- NOTE | 2021-07-23 23:22 | NUR ---
patient hearing aids placed in a teal denture cup. The cup has a red sticker labeled "DO NOT TRASH" and an admission label. The cup is then placed in red and black bag that belong to patient. The bag is then placed in patient closet. Patient is made aware of where the hearings are. Will inform day shift nurse during report.
[2021-07-24] VITALS (17 sets, daily range): BP systolic 84–125; BP diastolic 39–59
[2021-07-24 02:53] LABS: BASOPHILS % (AUTO) 0.2 % (0-1); EOSINOPHILS # (AUTO) 0.1 X10'3 (0-0.9); EOSINOPHILS % (AUTO) 0.4 % (0-6); LYMPHOCYTES # (AUTO) 0.9 X10'3 (1.1-4.8); LYMPHOCYTES % (AUTO) 5.2 % (21-51); MEAN CORPUSCULAR HEMOGLOBIN 28.1 PG (27.0-31.0); MEAN CORPUSCULAR HGB CONC 33.2 g/dL (33.0-36.5); MEAN CORPUSCULAR VOLUME 84.7 FL (78-98); MEAN PLATELET VOLUME 8.4 FL (7.4-10.4); MONOCYTES # (AUTO) 1.3 X10'3 (0-0.9); NEUTROPHILS # (AUTO) 15.7 X10'3 (1.8-7.7); NEUTROPHILS % (AUTO) 87.2 % (42-75); PLATELET COUNT 212 X10'3 (140-440); RED BLOOD COUNT 1.99 X10'6 (4.20-5.60); RED CELL DISTRIBUTION WIDTH 16.6 % (11.5-14.5); WHITE BLOOD COUNT 18.1 X10'3 (4.5-11.0)
[2021-07-24 02:58] LABS: ALBUMIN 2.3 G/DL (3.4-5.0); ANION GAP 19 (8-16); BLOOD UREA NITROGEN 58 MG/DL (7-18); BUN/CREATININE RATIO 9.2 (6.6-38.0); CALCIUM 7.1 MG/DL (8.5-10.1); CHLORIDE 108 MMOL/L (99-107); GLUCOSE 173 MG/DL (70-104); SODIUM 137 MMOL/L (135-145); eGFR 7 ML/MIN
[2021-07-24 03:00] LABS: HEMATOCRIT 16.9 % (35.0-45.0); HEMOGLOBIN 5.6 g/dl (12.0-16.0)
[2021-07-24 03:03] LABS: POTASSIUM 2.3 MMOL/L (3.5-5.1); TOTAL CARBON DIOXIDE 9.9 MMOL/L (24-32)
[2021-07-24] MEDS ORDERED: magnesium Cl slow-release 64mg tablet PO PRN (03:20)
[2021-07-24] MEDS ORDERED: magnesium 4gm in 100ml NS 100 ML IV PRN (03:20)
[2021-07-24] MEDS ORDERED: potassium Cl 20 mEq SR tablet PO PRN ×2 (03:20)
--- NOTE | 2021-07-24 03:25 | NUR ---
page sent out to Dr. Hi to report critical lab. PAGER ID: [phone] MESSAGE: LAB REPORTED CRITICAL. [facility] K+ 2.3, HBG 5.6 AND 9.9. PLEASE ADVISE. FOX SUAZO [id number] CALLED BACK AND NEW ORDERS ARE BEING PROCESSED. LAB FOR TYPE AND SCREEN WILL BE DRAWN STAT. K PROTOCOL IN PLACE.
--- NOTE | 2021-07-24 03:39 | NUR ---
CRITICAL LAB VALUE TAKEN FROM LAB, REPORTED TO PRIMARY RN.
--- NOTE | 2021-07-24 03:56 | NUR ---
NEW PAGE SENT OUT TO MD CHARLTON TO REORT CRITICAL MG 1.0. MAG PROTOCOL IN PLACE. PAGER ID: [phone] MESSAGE: LAB REPORTED MG 1.0 FOR PATIENT JONAH HWANG ROOM 3016B . WOULD YOU LIKE TO START MG PROTOCOL? WELL. CAN WE HAVE THE OK TO START A NEW LINE ON LOWER EXTREMITY. FOX SUAZO [phone]
[2021-07-24] MEDS: Insulin Reg/NS 100units/100mL 100 ML IV SCH ×2 (04:00→21:35)
[2021-07-24] MEDS: potassium Cl 40MEQ/1/2NS 520ml 520 ML IV PRN ×2 (04:55→11:36)
--- NOTE | 2021-07-24 05:46 | NUR ---
Dr. Hi paged to inform reason for blood transfusion delay. PAGER ID: [phone] MESSAGE: Hi Dr. Hi ! Blood bank reported that radiated blood is ordered for patient Tommie Navarreteline . Blood transfusion is being delayed as a result. Will pass information to day nurse. Kaleb Krueger, [phone]
[2021-07-24] MEDS: normal saline 1000ml 1,000 ML IV SCH ×2 (06:00→15:35)
--- NOTE | 2021-07-24 06:20 | NUR ---
Patient in room PCU 3016. I have received report from FRAN Pink and had the opportunity to ask questions and assume patient care.
--- NOTE | 2021-07-24 06:30 | NUR ---
Report given to FRAN Quiroz made aware of patient hearing aid.
[2021-07-24] MEDS: acetaminophen 325mg tablet PO PRN (06:46)
--- NOTE | 2021-07-24 07:11 | NUR ---
Paged Dr. Dave re: pt status: PAGER ID: [phone] MESSAGE: Abelino Navarrete 3011Z temp 102.2, b/p 83/39. Tylenol given, head down legs up. Still awaiting RBCs. Any further orders? Gabriella [phone]
[2021-07-24] MEDS: normal saline 500ml IV soln 500 ML IV SCH ×3 (07:30→08:42)
[2021-07-24] MEDS: docusate sod 100mg capsule PO SCH ×2 (08:00→20:00)
[2021-07-24] MEDS ORDERED: gabapentin 300mg capsule PO SCH (08:00)
[2021-07-24] MEDS: K and/or MAG REPLACEMENT MC SCH ×2 (08:00→20:00)
[2021-07-24] MEDS: heparin, porcine 5000 units/ml vial SQ SCH ×2 (08:26→20:09)
[2021-07-24] MEDS: tacrolimus anhydrous 1mg capsule PO SCH (08:26)
[2021-07-24] MEDS: mycophenolate mofetil 250mg capsule PO SCH ×2 (08:27→20:10)
[2021-07-24] MEDS: CefTRIAXone/D5W-Rocephin 1gm 50 ML IV SCH (08:39)
[2021-07-24 09:34] LABS: ALBUMIN 2.2 G/DL (3.4-5.0); ANION GAP 16 (8-16); BLOOD UREA NITROGEN 59 MG/DL (7-18); BUN/CREATININE RATIO 9.3 (6.6-38.0); CALCIUM 7.4 MG/DL (8.5-10.1); CHLORIDE 107 MMOL/L (99-107); CREATININE 6.37 MG/DL (0.40-0.90); GLUCOSE 161 MG/DL (70-104); SODIUM 135 MMOL/L (135-145); eGFR 7 ML/MIN
[2021-07-24 09:40] LABS: POTASSIUM 2.8 MMOL/L (3.5-5.1); TOTAL CARBON DIOXIDE 11.8 MMOL/L (24-32)
--- NOTE | 2021-07-24 09:45 | NUR ---
Discussed BMP results with Dr Dave. Critical K+ of 2.8 and CO2 of 11.8. Per Dr Dave, values expected, continue current orders.
[2021-07-24] MEDS: sodium bicarbonate (8.4%) inj. 150 MEQ in dextrose 5%-water 1,000 ML IV SCH ×2 (10:25→21:55)
[2021-07-24] MEDS ORDERED: potassium chloride 10mEq ER tablet PO PRN (11:23)
--- NOTE | 2021-07-24 14:27 | NUR ---
Malnutrition Consult: Pt reports 2-13 pound loss past 3 months per EMR. Pt has normal strength, no edema/wounds, appears WD/WN per ER note, and no scaled wt this admit w/ prior May 29 admit scaled wt appropriate. Pt lacks minimum malnutrition criteria at this time. Will monitor for additional criteria and nutrition intervention needs this admit. Addendum: 07/24/21 at [address] Amended: Links added.
[2021-07-24 17:33] LABS: ALBUMIN 2.5 G/DL (3.4-5.0); ANION GAP 18 (8-16); BASOPHILS % (AUTO) 0.2 % (0-1); BLOOD UREA NITROGEN 52 MG/DL (7-18); BUN/CREATININE RATIO 8.7 (6.6-38.0); CALCIUM 7.6 MG/DL (8.5-10.1); CHLORIDE 107 MMOL/L (99-107); CREATININE 5.95 MG/DL (0.40-0.90); EOSINOPHILS # (AUTO) 0.3 X10'3 (0-0.9); EOSINOPHILS % (AUTO) 1.4 % (0-6); GLUCOSE 153 MG/DL (70-104); HEMATOCRIT 29.5 % (35.0-45.0); HEMOGLOBIN 9.6 g/dl (12.0-16.0); LYMPHOCYTES # (AUTO) 0.8 X10'3 (1.1-4.8); LYMPHOCYTES % (AUTO) 4.2 % (21-51); MEAN CORPUSCULAR HEMOGLOBIN 28.5 PG (27.0-31.0); MEAN CORPUSCULAR HGB CONC 32.6 g/dL (33.0-36.5); MEAN CORPUSCULAR VOLUME 87.4 FL (78-98); MEAN PLATELET VOLUME 8.9 FL (7.4-10.4); MONOCYTES # (AUTO) 1.2 X10'3 (0-0.9); MONOCYTES % (AUTO) 5.9 % (2-12); NEUTROPHILS # (AUTO) 17.2 X10'3 (1.8-7.7); NEUTROPHILS % (AUTO) 88.3 % (42-75); PLATELET COUNT 214 X10'3 (140-440); POTASSIUM 3.4 MMOL/L (3.5-5.1); RED BLOOD COUNT 3.38 X10'6 (4.20-5.60); RED CELL DISTRIBUTION WIDTH 16.1 % (11.5-14.5); SODIUM 136 MMOL/L (135-145); WHITE BLOOD COUNT 19.4 X10'3 (4.5-11.0); eGFR 7 ML/MIN
[2021-07-24 17:36] LABS: TOTAL CARBON DIOXIDE 10.9 MMOL/L (24-32)
--- NOTE | 2021-07-24 18:25 | NUR ---
Problems reprioritized. Patient report given, questions answered & plan of care reviewed with FRAN Scherer.
--- NOTE | 2021-07-24 18:53 | NUR ---
Patient in room PCU 3016. I have received report from Sujatha PETERS and had the opportunity to ask questions and assume patient care.
[2021-07-24 19:49] LABS: ALBUMIN 2.4 G/DL (3.4-5.0); ANION GAP 19 (8-16); BLOOD UREA NITROGEN 52 MG/DL (7-18); BUN/CREATININE RATIO 8.8 (6.6-38.0); CALCIUM 7.7 MG/DL (8.5-10.1); CHLORIDE 107 MMOL/L (99-107); CREATININE 5.92 MG/DL (0.40-0.90); GLUCOSE 243 MG/DL (70-104); POTASSIUM 3.5 MMOL/L (3.5-5.1); SODIUM 135 MMOL/L (135-145); eGFR 7 ML/MIN
[2021-07-24 19:55] LABS: TOTAL CARBON DIOXIDE 9.5 MMOL/L (24-32)
[2021-07-24] MEDS: gabapentin 100mg capsule PO SCH (20:10)
[2021-07-24] MEDS ORDERED: ringers solution, lacted 1,000 ML IV ONE (20:15)
[2021-07-24] MEDS ORDERED: LIDOcaine 2% 10ml TOPICAL JELLY (Urojet) TP ONE (20:15)
[2021-07-24 21:50] LABS: ALBUMIN 2.2 G/DL (3.4-5.0); ANION GAP 17 (8-16); BLOOD UREA NITROGEN 49 MG/DL (7-18); BUN/CREATININE RATIO 8.5 (6.6-38.0); CALCIUM 7.4 MG/DL (8.5-10.1); CHLORIDE 107 MMOL/L (99-107); CREATININE 5.76 MG/DL (0.40-0.90); GLUCOSE 261 MG/DL (70-104); POTASSIUM 3.4 MMOL/L (3.5-5.1); SODIUM 136 MMOL/L (135-145); eGFR 8 ML/MIN
[2021-07-24 21:56] LABS: TOTAL CARBON DIOXIDE 11.9 MMOL/L (24-32)
--- NOTE | 2021-07-24 22:00 | NUR ---
CRITICAL LAB CO2 AT 11.9 (TRENDING UP, DIRECTION DESIRED). CALLED BARGAN-INCREASED INSULIN TO 7. CHOLMES RN
[2021-07-24 23:53] LABS: ALBUMIN 2.3 G/DL (3.4-5.0); ANION GAP 19 (8-16); BLOOD UREA NITROGEN 47 MG/DL (7-18); BUN/CREATININE RATIO 8.3 (6.6-38.0); CALCIUM 7.7 MG/DL (8.5-10.1); CHLORIDE 106 MMOL/L (99-107); CREATINE KINASE 282 U/L (26-192); CREATININE 5.64 MG/DL (0.40-0.90); GLUCOSE 243 MG/DL (70-104); LIPASE 242 U/L (73-393); POTASSIUM 3.2 MMOL/L (3.5-5.1); SODIUM 137 MMOL/L (135-145); eGFR 8 ML/MIN
[2021-07-25 00:01] LABS: TOTAL CARBON DIOXIDE 11.6 MMOL/L (24-32)
[2021-07-25] MEDS: Insulin Reg/NS 100units/100mL 100 ML IV SCH ×2 (00:01→00:12)
--- NOTE | 2021-07-25 00:30 | NUR ---
REPLACED POTASSIUM 40 MED ORAL FOR K OF 3.2
[2021-07-25] MEDS: normal saline 1000ml 1,000 ML IV SCH ×2 (01:35→11:35)
[2021-07-25 02:00] VITALS: BP 125/58
[2021-07-25] MEDS: sodium bicarbonate (8.4%) inj. 150 MEQ in dextrose 5%-water 1,000 ML IV SCH (02:38)
[2021-07-25] MEDS ORDERED: temazepam 15mg capsule PO ONE (03:05)
[2021-07-25] MEDS ORDERED: loperamide 2mg capsule PO ONE ×2 (03:10)
[2021-07-25] MEDS: temazepam 15mg capsule PO PRN ×2 (03:13→21:22)
[2021-07-25] MEDS: acetaminophen 325mg tablet PO PRN (04:15)
[2021-07-25 04:49] LABS: ALBUMIN 2.2 G/DL (3.4-5.0); ANION GAP 17 (8-16); BLOOD UREA NITROGEN 46 MG/DL (7-18); BUN/CREATININE RATIO 8.3 (6.6-38.0); CALCIUM 7.5 MG/DL (8.5-10.1); CHLORIDE 107 MMOL/L (99-107); CREATININE 5.52 MG/DL (0.40-0.90); GLUCOSE 194 MG/DL (70-104); MAGNESIUM 1.8 MG/DL (1.5-2.4); POTASSIUM 3.4 MMOL/L (3.5-5.1); SODIUM 135 MMOL/L (135-145); eGFR 8 ML/MIN
[2021-07-25 04:51] LABS: TOTAL CARBON DIOXIDE 11.4 MMOL/L (24-32)
--- NOTE | 2021-07-25 05:00 | NUR ---
Critical CO2-11.4-called to Lenore WHYTE-NO NEW ORDERS
[2021-07-25 06:00] VITALS: BP 130/51
--- NOTE | 2021-07-25 06:22 | NUR ---
Patient in room PCU 3016. I have received report from FRAN Scherer and had the opportunity to ask questions and assume patient care.
[2021-07-25] MEDS: potassium Cl 40MEQ/1/2NS 520ml 520 ML IV PRN (07:29)
[2021-07-25] MEDS: CefTRIAXone/D5W-Rocephin 1gm 50 ML IV SCH (07:29)
[2021-07-25] MEDS: potassium CL 20mEq in D5-1/2NS 1,000 ML IV PRN (07:29)
[2021-07-25 07:36] LABS: BASOPHILS % (AUTO) 0.1 % (0-1); EOSINOPHILS # (AUTO) 0.3 X10'3 (0-0.9); EOSINOPHILS % (AUTO) 2.1 % (0-6); HEMATOCRIT 24.1 % (35.0-45.0); HEMOGLOBIN 7.8 g/dl (12.0-16.0); LYMPHOCYTES # (AUTO) 0.9 X10'3 (1.1-4.8); LYMPHOCYTES % (AUTO) 5.9 % (21-51); MEAN CORPUSCULAR HEMOGLOBIN 28.5 PG (27.0-31.0); MEAN CORPUSCULAR HGB CONC 32.4 g/dL (33.0-36.5); MEAN CORPUSCULAR VOLUME 87.8 FL (78-98); MEAN PLATELET VOLUME 9.1 FL (7.4-10.4); MONOCYTES % (AUTO) 6.2 % (2-12); NEUTROPHILS # (AUTO) 13.4 X10'3 (1.8-7.7); NEUTROPHILS % (AUTO) 85.7 % (42-75); PLATELET COUNT 194 X10'3 (140-440); RED BLOOD COUNT 2.75 X10'6 (4.20-5.60); WHITE BLOOD COUNT 15.6 X10'3 (4.5-11.0)
[2021-07-25] MEDS: mycophenolate mofetil 250mg capsule PO SCH ×2 (07:39→19:38)
[2021-07-25] MEDS: tacrolimus anhydrous 1mg capsule PO SCH (07:39)
[2021-07-25] MEDS: K and/or MAG REPLACEMENT MC SCH ×2 (07:40→20:00)
[2021-07-25] MEDS: docusate sod 100mg capsule PO SCH ×2 (07:40→19:38)
[2021-07-25] MEDS: heparin, porcine 5000 units/ml vial SQ SCH ×2 (07:40→19:39)
[2021-07-25 07:50] LABS: ALANINE AMINOTRANSFERASE 6 U/L (12-78); ALBUMIN 2.1 G/DL (3.4-5.0); ALBUMIN/GLOBULIN RATIO 0.6 (1.1-1.5); ALKALINE PHOSPHATASE 83 IU/L (46-116); ANION GAP 15 (8-16); ASPARTATE AMINO TRANSFERASE 10 U/L (10-37); BILIRUBIN,TOTAL 0.4 MG/DL (0.1-1.0); BLOOD UREA NITROGEN 44 MG/DL (7-18); BUN/CREATININE RATIO 8.1 (6.6-38.0); CALCIUM 7.4 MG/DL (8.5-10.1); CHLORIDE 108 MMOL/L (99-107); CREATININE 5.44 MG/DL (0.40-0.90); GLUCOSE 147 MG/DL (70-104); POTASSIUM 3.1 MMOL/L (3.5-5.1); SODIUM 135 MMOL/L (135-145); TOTAL PROTEIN 5.7 G/DL (6.4-8.2); eGFR 8 ML/MIN
[2021-07-25 07:54] LABS: TOTAL CARBON DIOXIDE 11.9 MMOL/L (24-32)
--- NOTE | 2021-07-25 09:08 | NUR ---
Discussed pt current presentation with Dr Dave. Based on fingerstick glucose of 129 insulin decreased to 5 units/hr from 8 units/hr. Anion gap of 15, d5 1/2 ns decreased to 200 mL/hr from 250 ml/hr. d/t ongoing low bicarb, continue bicarb infusion at 100 mL/hr. continue to monitor cmet Q2h.
[2021-07-25 09:54] LABS: ALANINE AMINOTRANSFERASE 6 U/L (12-78); ALBUMIN/GLOBULIN RATIO 0.6 (1.1-1.5); ALKALINE PHOSPHATASE 82 IU/L (46-116); ANION GAP 17 (8-16); ASPARTATE AMINO TRANSFERASE 8 U/L (10-37); BILIRUBIN,TOTAL 0.3 MG/DL (0.1-1.0); BLOOD UREA NITROGEN 43 MG/DL (7-18); BUN/CREATININE RATIO 8.1 (6.6-38.0); CALCIUM 7.2 MG/DL (8.5-10.1); CHLORIDE 108 MMOL/L (99-107); CREATININE 5.31 MG/DL (0.40-0.90); GLUCOSE 129 MG/DL (70-104); MAGNESIUM 1.7 MG/DL (1.5-2.4); POTASSIUM 3.5 MMOL/L (3.5-5.1); SODIUM 138 MMOL/L (135-145); TOTAL PROTEIN 5.5 G/DL (6.4-8.2); eGFR 8 ML/MIN
[2021-07-25 09:58] LABS: TOTAL CARBON DIOXIDE 13.5 MMOL/L (24-32)
--- NOTE | 2021-07-25 10:05 | NUR ---
Informed Dr Dave of current CO2 value: PAGER ID: [phone] MESSAGE: Abelino Navarrete 3146B FYI CO2 still critical at 13.5 but improved from previous value of 11.9. Gabriella [phone]
[2021-07-25 11:00] VITALS: BP 106/53
[2021-07-25 12:04] LABS: ALBUMIN 1.9 G/DL (3.4-5.0); ALBUMIN/GLOBULIN RATIO 0.5 (1.1-1.5); ALKALINE PHOSPHATASE 72 IU/L (46-116); ANION GAP 16 (8-16); ASPARTATE AMINO TRANSFERASE 7 U/L (10-37); BILIRUBIN,TOTAL 0.3 MG/DL (0.1-1.0); BLOOD UREA NITROGEN 41 MG/DL (7-18); CALCIUM 7.2 MG/DL (8.5-10.1); CHLORIDE 108 MMOL/L (99-107); CREATININE 5.15 MG/DL (0.40-0.90); GLUCOSE 121 MG/DL (70-104); POTASSIUM 3.3 MMOL/L (3.5-5.1); SODIUM 137 MMOL/L (135-145); TOTAL PROTEIN 5.5 G/DL (6.4-8.2); eGFR 9 ML/MIN
[2021-07-25 12:10] LABS: TOTAL CARBON DIOXIDE 13.1 MMOL/L (24-32)
[2021-07-25 12:15] LABS: C DIFF SPECIMEN=DIARRHEA? ACCEPTABLE
[2021-07-25 12:16] LABS: C DIFF ANTIGEN POSITIVE (NEGATIVE)
[2021-07-25 12:18] LABS: ALANINE AMINOTRANSFERASE < 6 U/L (12-78)
--- NOTE | 2021-07-25 12:57 | NUR ---
Paged Dr Dave re: current patient lab values: PAGER ID: [phone] MESSAGE: Abelino Navarrete [id number] pt glucose 103, CO2 down from previous to 13.1, Agap up from 15 to 16. Shall I stop insulin? any other orders? Gabriella [phone]
--- NOTE | 2021-07-25 13:04 | NUR ---
Decreased patient's insulin drip to 3 units/hr, per Dr. Dave.
[2021-07-25] MEDS ORDERED: levoFLOXACIN-Levaquin 250mg/D5 50 ML IV SCH (13:05)
[2021-07-25] MEDS ORDERED: MESSAGE TO PHARMACY PO ONE (13:45)
[2021-07-25] MEDS ORDERED: dextrose 50%-water 50ml dispensing syringe IV PRN ×2 (13:45)
[2021-07-25] MEDS ORDERED: glucagon, human recombinant 1mg kit SUBCUT PRN (13:45)
[2021-07-25] MEDS ORDERED: dextrose ORAL solution 15 GM/59 ML bottle PO PRN ×2 (13:45)
[2021-07-25 13:54] LABS: ALANINE AMINOTRANSFERASE 8 U/L (12-78); ALBUMIN/GLOBULIN RATIO 0.6 (1.1-1.5); ALKALINE PHOSPHATASE 136 IU/L (46-116); ANION GAP 16 (8-16); ASPARTATE AMINO TRANSFERASE 4 U/L (10-37); BILIRUBIN,TOTAL 0.2 MG/DL (0.1-1.0); BLOOD UREA NITROGEN 42 MG/DL (7-18); BUN/CREATININE RATIO 8.2 (6.6-38.0); CALCIUM 7.2 MG/DL (8.5-10.1); CHLORIDE 108 MMOL/L (99-107); CREATININE 5.15 MG/DL (0.40-0.90); GLUCOSE 120 MG/DL (70-104); POTASSIUM 3.4 MMOL/L (3.5-5.1); SODIUM 138 MMOL/L (135-145); TOTAL PROTEIN 5.6 G/DL (6.4-8.2); eGFR 9 ML/MIN
[2021-07-25 13:56] LABS: TOTAL CARBON DIOXIDE 14.5 MMOL/L (24-32)
[2021-07-25] MEDS ORDERED: vancomycin 250MG/10ML UD oral solution 10ML BOTTLE PO SCH (14:00)
[2021-07-25 15:00] VITALS: BP 111/53
[2021-07-25 18:00] VITALS: BP 94/44
--- NOTE | 2021-07-25 18:09 | NUR ---
Patient in room PCU 3016. I have received report from Gabriella PETERS and had the opportunity to ask questions and assume patient care.
--- NOTE | 2021-07-25 18:14 | NUR ---
Problems reprioritized. Patient report given, questions answered & plan of care reviewed with FRAN Scherer.
[2021-07-25] MEDS: vancomycin 125mg/5ml ORAL solution 5ml UD oral syringe PO SCH (19:40)
[2021-07-25] MEDS: sodium bicarbonate 650mg tablet PO SCH (20:48)
[2021-07-25] MEDS: gabapentin 100mg capsule PO SCH (20:48)
[2021-07-25] MEDS: insulin glargine (Lantus) pen - multi-dose SQ SCH (20:53)
[2021-07-25 22:00] VITALS: BP 99/50
[2021-07-26 02:00] VITALS: BP 106/52
[2021-07-26] MEDS: vancomycin 125mg/5ml ORAL solution 5ml UD oral syringe PO SCH ×4 (02:04→19:09)
[2021-07-26 06:00] VITALS: BP 109/53
--- NOTE | 2021-07-26 06:04 | NUR ---
Problems reprioritized. Patient report given, questions answered & plan of care reviewed with Gabriella PETERS.
--- NOTE | 2021-07-26 06:19 | NUR ---
Patient in room PCU 3016. I have received report from FRAN Scherer and had the opportunity to ask questions and assume patient care.
[2021-07-26 06:48] LABS: BASOPHILS # (AUTO) 0.1 X10'3 (0-0.2); BASOPHILS % (AUTO) 0.7 % (0-1); EOSINOPHILS # (AUTO) 0.4 X10'3 (0-0.9); EOSINOPHILS % (AUTO) 5.4 % (0-6); HEMATOCRIT 24.4 % (35.0-45.0); HEMOGLOBIN 8.1 g/dl (12.0-16.0); LYMPHOCYTES # (AUTO) 0.9 X10'3 (1.1-4.8); LYMPHOCYTES % (AUTO) 11.8 % (21-51); MEAN CORPUSCULAR HGB CONC 33.4 g/dL (33.0-36.5); MEAN CORPUSCULAR VOLUME 86.9 FL (78-98); MEAN PLATELET VOLUME 8.9 FL (7.4-10.4); MONOCYTES # (AUTO) 0.4 X10'3 (0-0.9); MONOCYTES % (AUTO) 5.5 % (2-12); NEUTROPHILS # (AUTO) 5.8 X10'3 (1.8-7.7); NEUTROPHILS % (AUTO) 76.6 % (42-75); PLATELET COUNT 187 X10'3 (140-440); RED BLOOD COUNT 2.81 X10'6 (4.20-5.60); RED CELL DISTRIBUTION WIDTH 16.2 % (11.5-14.5); WHITE BLOOD COUNT 7.6 X10'3 (4.5-11.0)
[2021-07-26 07:04] LABS: ANION GAP 17 (8-16); BLOOD UREA NITROGEN 36 MG/DL (7-18); BUN/CREATININE RATIO 6.8 (6.6-38.0); CALCIUM 7.9 MG/DL (8.5-10.1); CHLORIDE 110 MMOL/L (99-107); CREATININE 5.28 MG/DL (0.40-0.90); GLUCOSE 171 MG/DL (70-104); MAGNESIUM 1.7 MG/DL (1.5-2.4); POTASSIUM 3.8 MMOL/L (3.5-5.1); SODIUM 139 MMOL/L (135-145); eGFR 9 ML/MIN
[2021-07-26 07:06] LABS: TOTAL CARBON DIOXIDE 11.7 MMOL/L (24-32)
--- NOTE | 2021-07-26 07:08 | NUR ---
Notified Dr Dave of crit CO2 this morning: PAGER ID: [phone] MESSAGE: Abelino Navarrete 3016B CO2 still crit at 11.7 this amila Quiroz [phone]
[2021-07-26] MEDS: docusate sod 100mg capsule PO SCH ×2 (08:00→20:00)
[2021-07-26] MEDS: heparin, porcine 5000 units/ml vial SQ SCH ×2 (08:15→19:15)
[2021-07-26] MEDS: sodium bicarbonate 650mg tablet PO SCH ×3 (08:15→19:13)
[2021-07-26] MEDS: tacrolimus anhydrous 1mg capsule PO SCH (08:16)
[2021-07-26] MEDS: mycophenolate mofetil 250mg capsule PO SCH ×2 (08:17→19:13)
[2021-07-26 11:00] VITALS: BP 111/55
[2021-07-26] MEDS: sodium bicarbonate (8.4%) inj. 150 MEQ in dextrose 5%-water 1,000 ML IV SCH ×2 (11:35→23:06)
[2021-07-26 15:00] VITALS: BP 117/55
--- NOTE | 2021-07-26 16:01 | NUR ---
No lunchtime insulin given, patient refused d/t family concerns.
[2021-07-26 18:00] VITALS: BP 127/60
[2021-07-26] MEDS: insulin Lispro (HumaLOG) vial - multi-dose SQ SCH ×2 (19:01→21:31)
[2021-07-26] MEDS: temazepam 15mg capsule PO PRN (19:13)
[2021-07-26] MEDS: gabapentin 100mg capsule PO SCH (19:14)
[2021-07-26] MEDS: insulin glargine (Lantus) pen - multi-dose SQ SCH (21:27)
[2021-07-26 22:00] VITALS: BP 113/52
[2021-07-27] MEDS: vancomycin 125mg/5ml ORAL solution 5ml UD oral syringe PO SCH ×4 (01:46→19:48)
[2021-07-27 02:00] VITALS: BP 104/56
--- NOTE | 2021-07-27 06:42 | NUR ---
Problems reprioritized. Patient report given, questions answered & plan of care reviewed with TOMA PETERS .
[2021-07-27 07:11] LABS: BASOPHILS # (AUTO) 0.1 X10'3 (0-0.2); BASOPHILS % (AUTO) 1.1 % (0-1); EOSINOPHILS # (AUTO) 0.3 X10'3 (0-0.9); EOSINOPHILS % (AUTO) 5.8 % (0-6); HEMATOCRIT 23.3 % (35.0-45.0); HEMOGLOBIN 7.9 g/dl (12.0-16.0); LYMPHOCYTES # (AUTO) 0.7 X10'3 (1.1-4.8); LYMPHOCYTES % (AUTO) 12.3 % (21-51); MEAN CORPUSCULAR HEMOGLOBIN 29.2 PG (27.0-31.0); MEAN CORPUSCULAR HGB CONC 33.9 g/dL (33.0-36.5); MEAN CORPUSCULAR VOLUME 86.1 FL (78-98); MEAN PLATELET VOLUME 9.3 FL (7.4-10.4); MONOCYTES # (AUTO) 0.4 X10'3 (0-0.9); MONOCYTES % (AUTO) 6.8 % (2-12); PLATELET COUNT 179 X10'3 (140-440); RED BLOOD COUNT 2.71 X10'6 (4.20-5.60); WHITE BLOOD COUNT 5.4 X10'3 (4.5-11.0)
[2021-07-27 07:25] LABS: ALBUMIN 1.9 G/DL (3.4-5.0); ANION GAP 14 (8-16); BLOOD UREA NITROGEN 34 MG/DL (7-18); BUN/CREATININE RATIO 6.9 (6.6-38.0); CALCIUM 7.5 MG/DL (8.5-10.1); CHLORIDE 104 MMOL/L (99-107); CREATININE 4.91 MG/DL (0.40-0.90); GLUCOSE 205 MG/DL (70-104); MAGNESIUM 1.6 MG/DL (1.5-2.4); SODIUM 137 MMOL/L (135-145); TOTAL CARBON DIOXIDE 18.6 MMOL/L (24-32); eGFR 9 ML/MIN
[2021-07-27] MEDS: docusate sod 100mg capsule PO SCH ×2 (08:00→20:00)
--- NOTE | 2021-07-27 08:02 | NUR ---
Notified Dr. Dave about low K+
[2021-07-27 08:04] VITALS: BP 115/55
[2021-07-27] MEDS ORDERED: potassium Cl 40MEQ/1/2NS 520ml 520 ML IV PRN (08:05)
[2021-07-27] MEDS ORDERED: magnesium 4gm in 100ml NS 100 ML IV PRN (08:05)
[2021-07-27] MEDS ORDERED: potassium Cl 20 mEq SR tablet PO PRN (08:05)
[2021-07-27] MEDS ORDERED: magnesium Cl slow-release 64mg tablet PO PRN (08:05)
[2021-07-27] MEDS: sodium bicarbonate 650mg tablet PO SCH ×3 (08:41→19:47)
[2021-07-27] MEDS: tacrolimus anhydrous 1mg capsule PO SCH (08:43)
[2021-07-27] MEDS: mycophenolate mofetil 250mg capsule PO SCH ×2 (08:43→19:47)
[2021-07-27] MEDS: heparin, porcine 5000 units/ml vial SQ SCH ×2 (08:44→19:47)
[2021-07-27] MEDS: sodium bicarbonate (8.4%) inj. 150 MEQ in dextrose 5%-water 1,000 ML IV SCH ×2 (09:35→21:05)
[2021-07-27] MEDS: potassium Cl 20 mEq SR tablet PO PRN ×3 (10:56→19:46)
[2021-07-27 12:04] VITALS: BP 105/49
--- NOTE | 2021-07-27 14:09 | NUR ---
Initial: Pt admitted w/ increasing SOB and metabolic acidosis per EMR. Per [employer], pt will likely go to dialysis as outpatient. Pt w/ poor PO intake on Renal/CCHO diet, avg 28% x 6 meals not meeting needs. Pt may benefit from Nepro BID to help meet nutrient needs. Pt noted w/ diarrhea d/t C. diff, LBM 07/26. Will continue to monitor PO trends and make recommendations as appropriate. Recs: 1. Continue Renal/CCHO diet as tolerated 2. Nepro BID BD; pending MD approval 3. Bowel care per rx 4. Scaled wt this admit; weekly wt thereafter Addendum: 07/27/21 at [address] Amended: Links added.
[2021-07-27] MEDS: insulin Lispro (HumaLOG) vial - multi-dose SQ SCH (14:40)
[2021-07-27 16:46] VITALS: BP 123/57
[2021-07-27] MEDS ORDERED: NUT.TX.IMP.RENAL FXN,LAC-REDUC (Nepro) 237 ML VANILLA PO SCH (17:30)
[2021-07-27 18:00] VITALS: BP 126/54
--- NOTE | 2021-07-27 18:33 | NUR ---
Problems reprioritized. Patient report given, questions answered & plan of care reviewed with Deborah RN. Patient stable a transfer of care.
--- NOTE | 2021-07-27 18:40 | NUR ---
Elie documentation: I have reviewed and agree with all interventions, assessments performed and documented by Deborah PETERS. Addendum: 07/27/21 at 1842 by Lex Carmona RN yevgeniy Cabrera RN..Rafael BETANCUR RN
--- NOTE | 2021-07-27 18:42 | NUR ---
[place] Medication Administration: For this medication-pass time frame, all medication were reviewed, dispensed, administered and documented per hospital policy by Nanci PETERS.
--- NOTE | 2021-07-27 18:43 | NUR ---
[place] documentation: I have reviewed and agree with all interventions, assessments performed and documented by Nanci PETERS.
[2021-07-27] MEDS: gabapentin 100mg capsule PO SCH (19:47)
[2021-07-27] MEDS: K and/or MAG REPLACEMENT MC SCH (19:51)
[2021-07-27] MEDS: insulin glargine (Lantus) pen - multi-dose SQ SCH (21:21)
[2021-07-27 22:00] VITALS: BP 111/58
[2021-07-28 02:00] VITALS: BP 117/50
[2021-07-28] MEDS: vancomycin 125mg/5ml ORAL solution 5ml UD oral syringe PO SCH ×2 (03:00→08:44)
[2021-07-28 06:00] VITALS: BP 113/56
[2021-07-28 07:19] LABS: BASOPHILS % (AUTO) 0.6 % (0-1); EOSINOPHILS # (AUTO) 0.3 X10'3 (0-0.9); EOSINOPHILS % (AUTO) 6.3 % (0-6); HEMATOCRIT 24.9 % (35.0-45.0); HEMOGLOBIN 8.3 g/dl (12.0-16.0); LYMPHOCYTES # (AUTO) 0.8 X10'3 (1.1-4.8); LYMPHOCYTES % (AUTO) 15.5 % (21-51); MEAN CORPUSCULAR HGB CONC 33.3 g/dL (33.0-36.5); MEAN CORPUSCULAR VOLUME 87.2 FL (78-98); MONOCYTES # (AUTO) 0.4 X10'3 (0-0.9); MONOCYTES % (AUTO) 6.9 % (2-12); NEUTROPHILS # (AUTO) 3.7 X10'3 (1.8-7.7); NEUTROPHILS % (AUTO) 70.7 % (42-75); PLATELET COUNT 186 X10'3 (140-440); RED BLOOD COUNT 2.85 X10'6 (4.20-5.60); RED CELL DISTRIBUTION WIDTH 16.2 % (11.5-14.5); WHITE BLOOD COUNT 5.2 X10'3 (4.5-11.0)
[2021-07-28] MEDS: K and/or MAG REPLACEMENT MC SCH (08:00)
[2021-07-28 08:04] LABS: ALBUMIN 2.2 G/DL (3.4-5.0); ANION GAP 12 (8-16); BLOOD UREA NITROGEN 34 MG/DL (7-18); BUN/CREATININE RATIO 7.1 (6.6-38.0); CALCIUM 8.3 MG/DL (8.5-10.1); CHLORIDE 110 MMOL/L (99-107); CREATININE 4.77 MG/DL (0.40-0.90); GLUCOSE 176 MG/DL (70-104); MAGNESIUM 1.6 MG/DL (1.5-2.4); POTASSIUM 4.1 MMOL/L (3.5-5.1); SODIUM 140 MMOL/L (135-145); TOTAL CARBON DIOXIDE 17.7 MMOL/L (24-32); eGFR 10 ML/MIN
[2021-07-28] MEDS: insulin Lispro (HumaLOG) vial - multi-dose SQ SCH ×2 (08:41→13:38)
[2021-07-28] MEDS: tacrolimus anhydrous 1mg capsule PO SCH (08:42)
[2021-07-28] MEDS: acetaminophen 325mg tablet PO PRN (08:42)
[2021-07-28] MEDS: sodium bicarbonate 650mg tablet PO SCH ×2 (08:44→13:34)
[2021-07-28] MEDS: mycophenolate mofetil 250mg capsule PO SCH (08:44)
[2021-07-28] MEDS: docusate sod 100mg capsule PO SCH (08:44)
[2021-07-28] MEDS: heparin, porcine 5000 units/ml vial SQ SCH (08:45)
[2021-07-28 11:00] VITALS: BP 120/60
[2021-07-28] MEDS ORDERED: SODI650T29 PO (12:31)
[2021-07-28] MEDS ORDERED: VANC5VIA PO (12:31)
--- NOTE | 2021-07-28 14:30 | NUR ---
Patient stable and comfortable at time of discharge. Removed Telemetry. Patient had no PIV, as it was removed the day before discharge. Gathered all patient belongings, placed in bag and gave to patient at discharge. Patient will go to her pharmacy and leaf size picker her new medications, She had already received a text from her [facility] pharmacy, medications are ready. Gave and discussed all patient discharge information and discharge education. Patient and family member were able to ask questions and get answers about patient discharge information and discharge education. Patient and family member were able to verbalize back patient discharge information and discharge education. Patient was wheeled out to lobby in wheel chair by staff and accompanied by family member. Patient left hospital in private car, with family member, valuables and all patient discharge information and discharge education.
== END 2021-07-28 14:30 | disposition home or self-care (01) | DRG 871 ==
LOC: ER 01:56 → ED HOLD 09:38 → PCU 3S 19:21
PROVIDERS: ADMIT Family Medicine; ATTEND Family Medicine
PROC: 30233N1 Transfusion of Nonautologous Red Blood Cells into Peripheral Vein, Percutaneous Approach (ICD-10-PCS; principal; 2021-07-24)
DX: A41.4 Sepsis due to anaerobes (principal); E10.10 Type 1 diabetes mellitus with ketoacidosis without coma; T86.19 Other complication of kidney transplant; N39.0 Urinary tract infection, site not specified; E87.1 Hypo-osmolality and hyponatremia; A04.72 Enterocolitis due to Clostridium difficile, not specified as recurrent; E87.4 Mixed disorder of acid-base balance; N17.9 Acute kidney failure, unspecified; I13.0 Hypertensive heart and chronic kidney disease with heart failure and stage 1 through stage 4 chronic kidney disease, or unspecified chronic kidney disease; N18.4 Chronic kidney disease, stage 4 (severe); D64.9 Anemia, unspecified; E78.00 Pure hypercholesterolemia, unspecified; E78.5 Hyperlipidemia, unspecified; G43.909 Migraine, unspecified, not intractable, without status migrainosus; E10.21 Type 1 diabetes mellitus with diabetic nephropathy; E87.6 Hypokalemia; E10.22 Type 1 diabetes mellitus with diabetic chronic kidney disease; K21.9 Gastro-esophageal reflux disease without esophagitis; I50.9 Heart failure, unspecified; Y83.0 Surgical operation with transplant of whole organ as the cause of abnormal reaction of the patient, or of later complication, without mention of misadventure at the time of the procedure; Z20.822 Contact with and (suspected) exposure to COVID-19; Z79.4 Long term (current) use of insulin; Z90.710 Acquired absence of both cervix and uterus; Z90.49 Acquired absence of other specified parts of digestive tract; Z83.3 Family history of diabetes mellitus; Z82.49 Family history of ischemic heart disease and other diseases of the circulatory system
CPT/HCPCS: 36415; 36600; 71045; 74176; 80048; 80053; 81001; 82550; 82803; 82948; 83605; 83690; 83735; 83880; 84100; 84145; 85018; 85025; 86885; 86900; 86901; 86902; 86920; 86922; 86945; 87040; 87077; 87081; 87088; 87186; 87324; 87449; 87635; 93005; 96365; 96366; 96368; 96375; 97110; 97161; 97530; 99285; C9803; G0378; J0696; J1644; J1815; J3475; J3480; J7030; J7040; J7120; J7517; P9016

== ENCOUNTER 2021-08-14 09:14 | Outpatient (CLI) | payer MEDICARE, MEDICAID ==
[~2021-08-14 09:14] MED LIST changes: -ACET-1025 PO; -ASCO-100 PO; -CIPR-202 PO; +SODI650T29 PO
[2021-08-14 10:23] LABS: BASOPHILS # (AUTO) 0.1 X10'3 (0-0.2); BASOPHILS % (AUTO) 0.8 % (0-1); EOSINOPHILS # (AUTO) 0.6 X10'3 (0-0.9); EOSINOPHILS % (AUTO) 4.9 % (0-6); HEMATOCRIT 29.8 % (35.0-45.0); HEMOGLOBIN 9.5 g/dl (12.0-16.0); LYMPHOCYTES # (AUTO) 1.1 X10'3 (1.1-4.8); LYMPHOCYTES % (AUTO) 8.5 % (21-51); MEAN CORPUSCULAR HEMOGLOBIN 28.1 PG (27.0-31.0); MEAN CORPUSCULAR VOLUME 87.8 FL (78-98); MEAN PLATELET VOLUME 9.5 FL (7.4-10.4); MONOCYTES # (AUTO) 1.2 X10'3 (0-0.9); MONOCYTES % (AUTO) 9.3 % (2-12); NEUTROPHILS # (AUTO) 9.8 X10'3 (1.8-7.7); NEUTROPHILS % (AUTO) 76.5 % (42-75); PLATELET COUNT 250 X10'3 (140-440); RED BLOOD COUNT 3.39 X10'6 (4.20-5.60); RED CELL DISTRIBUTION WIDTH 15.7 % (11.5-14.5); WHITE BLOOD COUNT 12.8 X10'3 (4.5-11.0)
[2021-08-14 10:30] LABS: TOTAL PROTEIN,URINE RANDOM 73.2 MG/DL
[2021-08-14 10:31] LABS: UA PROTEIN/CREATININE RATIO 2.15 mg/mg Cr (0-0.16)
[2021-08-14 10:34] LABS: ALBUMIN 3.4 G/DL (3.4-5.0); ANION GAP 13 (8-16); BLOOD UREA NITROGEN 36 MG/DL (7-18); BUN/CREATININE RATIO 7.7 (6.6-38.0); CALCIUM 9.1 MG/DL (8.5-10.1); CHLORIDE 102 MMOL/L (99-107); CREATININE 4.69 MG/DL (0.40-0.90); GLUCOSE 145 MG/DL (70-104); PHOSPHORUS 3.7 MG/DL (2.3-4.5); SODIUM 135 MMOL/L (135-145); TOTAL CARBON DIOXIDE 19.9 MMOL/L (24-32); eGFR 10 ML/MIN
[2021-08-15 09:26] LABS: MICROALB/CRT, RATIO 236 mg/g creat (0-29)
== END 2021-08-14 23:59 | disposition home or self-care (01) ==
LOC: LAB 09:14
PROVIDERS: ATTEND Internal Medicine Critical Care Medicine
DX: N18.5 Chronic kidney disease, stage 5 (principal); R94.4 Abnormal results of kidney function studies; D63.1 Anemia in chronic kidney disease; R80.9 Proteinuria, unspecified; E55.9 Vitamin D deficiency, unspecified; Z94.0 Kidney transplant status
CPT/HCPCS: 36415; 80069; 80197; 82043; 82306; 82570; 83970; 84156; 85025

== ENCOUNTER 2021-09-15 14:52 | Emergency (ER) | payer MEDICARE, MEDICAID ==
[~2021-09-15] VITALS: Ht 162.6 cm; Wt 88.6 kg
[2021-09-15 15:32] VITALS: BP 139/70
[2021-09-15] MEDS ORDERED: HYDR-3965 PO (15:46)
[2021-09-15] MEDS ORDERED: AMOX-117 PO (15:46)
[2021-09-15] MEDS ORDERED: NEOM10DR45 LEFT EAR (15:46)
== END 2021-09-15 16:13 | disposition home or self-care (01) ==
LOC: ER 14:53
DX: H66.92 Otitis media, unspecified, left ear (principal); G43.909 Migraine, unspecified, not intractable, without status migrainosus; E78.00 Pure hypercholesterolemia, unspecified; I10 Essential (primary) hypertension; K21.9 Gastro-esophageal reflux disease without esophagitis; E11.9 Type 2 diabetes mellitus without complications; Z86.2 Personal history of diseases of the blood and blood-forming organs and certain disorders involving the immune mechanism; Z90.49 Acquired absence of other specified parts of digestive tract; Z90.710 Acquired absence of both cervix and uterus; Z79.4 Long term (current) use of insulin; Z79.899 Other long term (current) drug therapy; Z79.2 Long term (current) use of antibiotics
CPT/HCPCS: 99283

== ENCOUNTER 2022-07-28 10:30 | Outpatient (CLI) | payer MEDICARE, MEDICAID ==
[~2022-07-28 10:30] MED LIST changes: +ASPI-611 PO; +FOLI1TAB34 PO; -SODI650T29 PO; -VANC5VIA PO
== END 2022-07-28 23:59 | disposition home or self-care (01) ==
LOC: LAB 10:30
PROVIDERS: ATTEND Internal Medicine
DX: I10 Essential (primary) hypertension (principal); E11.9 Type 2 diabetes mellitus without complications
CPT/HCPCS: 36415

== ENCOUNTER 2022-08-05 09:28 | Outpatient (CLI) | payer MEDICARE, MEDICAID ==
[2022-08-05 13:43] LABS: HIV ANTIBODY 1&2 RAPID NON-REACTIVE (Neg)
[2022-08-06 07:23] LABS: EBV AB VCA, IGM <36.0 U/mL (0.0-35.9)
[2022-08-06 14:00] LABS: HBSAG SCREEN Negative (Negative); HEP B CORE AB, TOT Negative (Negative); PSA, FREE <0.01 ng/mL
[2022-08-07 08:09] LABS: CYTOMEGALOVIRUS AB, IGG >10.00 U/mL (0.00-0.59)
[2022-08-13 12:29] LABS: C-PEPTIDE, SERUM SEE COMMENTS
== END 2022-08-05 23:59 | disposition home or self-care (01) ==
LOC: LAB 09:28
PROVIDERS: ATTEND Internal Medicine
DX: N18.9 Chronic kidney disease, unspecified (principal)
CPT/HCPCS: 36415; 83036; 84153; 84154; 84681; 86480; 86592; 86644; 86663; 86664; 86665; 86703; 86704; 86706; 86900; 86901; 87340

== ENCOUNTER 2023-06-04 15:21 | Emergency (ER) | payer MEDICARE, MEDICAID ==
[~2023-06-04] VITALS: Ht 162.6 cm; Wt 100.0 kg
[~2023-06-04 15:21] MED LIST changes: -ASPI-611 PO; -FOLI1TAB34 PO; +GABA-530 PO; -GABA-532 PO; -GABA300C PO; -INSU100V36 SQ; +INSU100V49 SUBCUT; -INSU300I SQ; +INSU300I SUBCUT; +PANT40TA54 PO
[2023-06-04 16:03] LABS: BASOPHILS # (AUTO) 0.1 X10'3 (0-0.2); BASOPHILS % (AUTO) 1.5 % (0-1); EOSINOPHILS # (AUTO) 0.9 X10'3 (0-0.9); EOSINOPHILS % (AUTO) 11.1 % (0-6); HEMATOCRIT 23.4 % (35.0-45.0); HEMOGLOBIN 7.7 g/dl (12.0-16.0); LYMPHOCYTES # (AUTO) 1.1 X10'3 (1.1-4.8); LYMPHOCYTES % (AUTO) 14.2 % (21-51); MEAN CORPUSCULAR HEMOGLOBIN 29.1 PG (27.0-31.0); MEAN CORPUSCULAR HGB CONC 32.9 g/dL (33.0-36.5); MEAN CORPUSCULAR VOLUME 88.3 FL (78-98); MEAN PLATELET VOLUME 7.6 FL (7.4-10.4); MONOCYTES # (AUTO) 0.7 X10'3 (0-0.9); MONOCYTES % (AUTO) 8.3 % (2-12); NEUTROPHILS # (AUTO) 5.1 X10'3 (1.8-7.7); NEUTROPHILS % (AUTO) 64.9 % (42-75); PLATELET COUNT 290 X10'3 (140-440); RED BLOOD COUNT 2.65 X10'6 (4.20-5.60); RED CELL DISTRIBUTION WIDTH 17.1 % (11.5-14.5); WHITE BLOOD COUNT 7.9 X10'3 (4.5-11.0)
[2023-06-04 16:12] LABS: ALBUMIN 2.8 G/DL (3.4-5.0); ALBUMIN/GLOBULIN RATIO 0.5 (1.1-1.5); ALKALINE PHOSPHATASE 149 IU/L (46-116); ANION GAP 15 (8-16); ASPARTATE AMINO TRANSFERASE 7 U/L (10-37); BILIRUBIN,TOTAL 0.3 MG/DL (0.1-1.0); BLOOD UREA NITROGEN 42 MG/DL (7-18); BUN/CREATININE RATIO 3.6 (10.0-20.0); CHLORIDE 93 MMOL/L (99-107); CREATININE 11.72 MG/DL (0.40-0.90); GLUCOSE 148 MG/DL (70-104); POTASSIUM 3.2 MMOL/L (3.5-5.1); SODIUM 132 MMOL/L (135-145); TOTAL PROTEIN 8.8 G/DL (6.4-8.2); eCRCL 5 ML/MIN; eGFR 3 ML/MIN
[2023-06-04 16:25] LABS: CALCIUM 8.6 MG/DL (8.5-10.1)
[2023-06-04 16:27] LABS: ALANINE AMINOTRANSFERASE < 6 U/L (12-78)
[2023-06-04 18:04] LABS: RED BLOOD COUNT 2.65 X10'6 (4.20-5.60); RETICULOCYTE % (AUTO) 2.9 % (0.5-1.5)
[2023-06-04 20:48] VITALS: BP 164/73; PULSE 94; RESP 16; TEMP 99.1
[2023-06-04 21:02] VITALS: BP 161/106; PULSE 82; RESP 16; TEMP 99.2
[2023-06-04 22:12] VITALS: BP 157/78; PULSE 85; RESP 18; TEMP 99
[2023-06-04 23:00] VITALS: BP 167/78; PULSE 83; RESP 16; TEMP 98.5
[2023-06-04 23:32] VITALS: BP 169/83; PULSE 89; RESP 16; TEMP 98.4; O2SAT 95
[2023-06-05 05:58] LABS: OCCULT BLOOD STOOL NEGATIVE (Neg)
== END 2023-06-04 23:38 | disposition home or self-care (01) ==
LOC: ER 15:22
DX: D64.9 Anemia, unspecified (principal)
CPT/HCPCS: 36415; 36430; 80053; 82272; 85025; 85045; 86885; 86900; 86901; 86922; 86945; 99291; J7040; P9016

== ENCOUNTER 2025-07-21 21:29 | Emergency (ER) | payer MEDICARE, MEDICAID ==
[~2025-07-21] VITALS: Ht 162.6 cm; Wt 97.7 kg
--- NOTE | 2025-07-21 21:44 | Physician Documentation ---
History of Present Illness ~ Stated Complaint: BUMP NEAR VAGINAL AREA Time Seen by MD: 21:40 Primary Medical Doctor: NONE Source: patient Mode of Arrival: Wheelchair Exam Limitations: no limitations HPI 55-year-old female with complaints of abscess to the right groin that is become larger but has been draining minimal amounts. Tetanus Within 5 Years: Yes Medication Reconciliation Allergies: Coded Allergies: No Known Drug Allergies (Verified Allergy, Unknown, 06/04/23) Uncoded Allergies: ACETOMINOPHEN (Allergy, Mild, DROWSY, 07/21/25) Scheduled Gabapentin (Gabapentin), 1 CAP PO BID, (Reported) Mycophenolate Mofetil (Mycophenolate Mofetil), 2 TAB PO Q12H, (Reported) Pantoprazole Sodium (Pantoprazole Sodium), 1 TAB PO DAILY, (Reported) Tacrolimus Anhydrous* (Prograf*), 1 CAP PO BID, (Reported) Scheduled PRN Insulin Glargine,Hum.rec.anlog (Touemilia Solmiquel), 12 UNITS SUBCUT HS PRN for sliding scale, (Reported) Insulin Lispro (Insulin Lispro), 1 UNIT SUBCUT ACHS PRN for sliding scale, (Reported) Past Medical History Past Medical History: Migraine, High Cholesterol, Hypertension, Gastritis, GERD, GI Bleed, Anemia, Kidney Transplant, Renal Disease, Diabetes Past Surgical History: appendectomy, hysterectomy, other Other Past Surgical History: Kidney transplant, eustachian tubes as a child Patient History: (DM Type 2) Diabetes mellitus type 2 FATHER MOTHER ([place]) Myocardial infarction FATHER FH: renal failure FATHER MOTHER Alcohol Use: None Drug Use: none Lives with: Family Lives In: Home Occupation: disabled Review of Systems All Other Systems at this time: Reviewed and Negative Integumentary: Reports: see HPI Physical Exam Physical Exam General: Alert, no apparent distress. HEENT: moist mucous membranes. Neck: Full range of motion. Respiratory: No respiratory distress speaking in full sentences Chest: No accessory muscle use. Cardiovascular: Appears well perfused Neurologic: Oriented x4. Psychiatric: Normal mood and affect. Skin: 7 cm of induration to the right groin with 4 cm area centralized of fluctuance carbuncle appearance with multiple areas draining blood and pus. Procedures I & D Procedure : Site: Right groin Anesthesia: Lidocaine Volume Anesthetic (mls): 5 Blade Size: 11 Prep/Supplies: betadine prep, irrigated, packing placed Incision: pus drained, blood drained Tolerated Procedure Well?: yes, no complications Progress Results/Orders Results/Orders Orders - KRISTA LOW NP Laceration/I&D Tray Set Up (07/21/25 21:40) Vital Signs 07/21/25 21:35 Temp 97.9 Pulse 74 Resp 20 B/P (MAP) 140/70 Pulse Ox 99 O2 Flow Rate 4.0 Medical Decision Making Additional information obtaine: N/A Findings Abscess drained packing placed quarter-inch iodoform. Dressing placed patient is on hemodialysis with antibiotic prescribed according to her history. Patient is to see her provider on Wednesday to have packing removed. Patient will monitor and follow up Differential Dx:Considerations: Include: Cellulitis, Other Departure Time of Disposition: 22:31 Disposition: HOME / SELF CARE / HOMELESS Impression: Primary Impression: Abscess Condition: Stable Discharge Instructions: Abscess, Care After Additional Instructions: Have packing removed Wednesday. Use warm compress a couple of times a day to facilitate drainage. Change dressing when soiled but leave packing in if packing comes out on its own do not replace packing. Take antibiotics as prescribed and follow up with primary care Referrals: NO PRIMARY CARE PROVIDER (PCP) Prescriptions Cephalexin*Monohydrate* (Keflex*) 250 Mg Capsule 1 TAB PO BID for 10 Days, #20 TAB Prov: KRISTA LOW NP 07/21/25 Education Educated: Patient, Family Educated regarding: diagnosis, treatment, need for follow up Signature Scribe Signature: No scribe Attestation: The note accurately reflects work and decisions made by me.Krista Low - [employer] 07/21/25 21:44 KRISTA LOW NP Jul 21, 2025 21:44
[2025-07-21] MEDS ORDERED: CEPH250T PO (22:32)
[2025-07-21] MEDS: HYDROcodone/acetaminophen 10/325mg tab PO ONE (22:46)
[2025-07-21 22:48] VITALS: BP 193/85; PULSE 72; RESP 16; TEMP 97.9; O2SAT 99
== END 2025-07-21 22:50 | disposition home or self-care (01) ==
LOC: ER 21:30
DX: L02.214 Cutaneous abscess of groin (principal); K21.9 Gastro-esophageal reflux disease without esophagitis; I10 Essential (primary) hypertension; E78.00 Pure hypercholesterolemia, unspecified; E11.9 Type 2 diabetes mellitus without complications; Z90.710 Acquired absence of both cervix and uterus; Z90.49 Acquired absence of other specified parts of digestive tract; Z79.899 Other long term (current) drug therapy
CPT/HCPCS: 10060; 99283; A4620; A6266; A6402; A6449